=== PATIENT | male | born 1955 | race Caucasian/White ===

== ENCOUNTER 2019-07-21 09:54 | Inpatient (IN) | payer MEDICARE, MEDICAID, SELFPAY ==
[2019-07-21] VITALS (17 sets, daily range): BP systolic 93–112; BP diastolic 55–78; PULSE 95–125; RESP 16–35; TEMP 36.1–36.4; O2SAT 92–100; BMI 29.9
--- NOTE | ~2019-07-21 | CT_ITS ---
EXAMINATION: CTA chest PE protocol EXAM DATE: 07/21/2019 12:18 INDICATION: Shortness of breath. TECHNIQUE: Spiral CTA of the chest (pulmonary arteries) was performed with 100 cc Omnipaque 350 intr avenous contrast injection. Images were acquired during the pulmonary arterial phase. Coronal maxi mum intensity projection 3D-reconstructions were created by the technologist on dedicated workstation . Axial, coronal and sagittal reformatted images were reviewed. The dose-length product (DLP) for t his examination was 910.48 mGy-cm. The exposure was tailored according to patient size (auto mA exp osure control), and iterative reconstruction (ASIR) was used as additional dose reduction technique. Comparison is made to prior examination from 05/28/2019. FINDINGS: No pulmonary emboli. No thoracic aortic dissection. There is moderate to large right-kaushal ed, and moderate left-sided pleural effusion. There is adjacent multisegmental atelectasis in both lo wer lobes. There is additional left-sided airspace disease consistent with pneumonia or edema. Tra cheobronchial tree is patent. There is no mediastinal, hilar or axillary lymphadenopathy. There i s no pneumothorax. Cardiomegaly coronary artery calcifications and/or stents. Splenic and liver g ranulomas. Left renal hemorrhagic cyst incompletely imaged. There is advanced thoracic spondylosis w ithout osteoblastic or osteolytic lesions identified. IMPRESSION: 1. No pulmonary emboli. 2. Moderate to large right pleural effusion, could consider therapeutic thoracentesis. 3. Moderate left pleural effusion. 4. Patchy left-sided pneumonia or edema. 5. Bibasilar multisegmental atelectasis. 6. Cardiomegaly. Reviewed, dictated and finalized at location A. AGENT IMPRESSION: 1. No pulmonary emboli. 2. Moderate to large right pleural effusion, could consider therapeutic thorac entesis. 3. Moderate left pleural effusion. 4. Patchy left-sided pneumonia or edema. 5. Bibasilar multisegmental atelectasis. 6. Cardiomegaly.
--- NOTE | ~2019-07-21 | XR_ITS ---
EXAMINATION: XR abdomen obstructive series EXAM DATE: 08/03/2019 18:24 INDICATION: Abdominal distention, ileus. TECHNIQUE: Frontal upright projection of the upper abdomen, frontal projection of the lower abdomen f or interpretation. Comparison is made to prior examination from 06/02/2019. FINDINGS: Again there is severe gaseous distention of the colon, could be colonic ileus correlating with prior studies, although there is also moderate amount of stool within the rectal vault, fecal im paction could be contributing. Large lumbar bridging lumbar endplate osteophytes. Right hip replaceme nt. There are small bilateral pleural effusions. There is possible left lower lobe consolidation, cou ld be atelectasis. No evidence of free intraperitoneal gas. IMPRESSION: 1. Moderate rectal vault stool with large amount of colonic gaseous distention proximally. Fecal imp action and/or colonic ileus. 2. Small pleural effusions. 3. Probable retrocardiac atelectasis or possibly consolidation. Reviewed, dictated and finalized at location A. TER AIRBRUSH IMPRESSION: 1. Moderate rectal vault stool with large amount of colonic gaseous distention proximally. Fecal impaction and/or colonic ileus. 2. Small pleural effusions. 3. Probable retrocardiac atelectasis or possibly consolidation.
--- NOTE | ~2019-07-21 | XR_ITS ---
EXAMINATION: XR chest 2V DATE: 07/28/2019 15:59 INDICATION: Congestive heart failure, pneumonia TECHNIQUE: AP and lateral views of the chest are obtained. COMPARISON: 07/26/2019 FINDINGS: There is stable cardiomegaly. Moderate-sized pleural effusions are unchanged. There are sta ble airspace opacities of the mid and lower lung zones. No pneumothorax is identified. Calcified righ t hilar lymph nodes are consistent with old granulomatous disease. IMPRESSION: 1. Stable airspace opacities of the mid and lower lung zones, consistent with atelectasis versus pneu monia. 2. Stable cardiomegaly. 3. Moderate-sized pleural effusions, stable. Reviewed, dictated and finalized at location A. E HARDENER IMPRESSION: 1. Stable airspace opacities of the mid and lower lung zones, consistent with a telectasis versus pneumonia. 2. Stable cardiomegaly. 3. Moderate-sized pleural effusions, stable.
--- NOTE | ~2019-07-21 | US_ITS ---
EXAMINATION: US venous doppler [facility] DATE: 07/22/2019 14:18 INDICATION: Lower limb edema. TECHNIQUE: Grayscale ultrasound images without and with compression and Doppler ultrasound images of the bilateral lower extremity veins were obtained. COMPARISON: Ultrasound 05/30/2019 FINDINGS: The visualized portions of right common femoral vein, profunda (deep) femoral vein, femoral vein, pop liteal vein, peroneal veins, posterior tibial veins, and greater saphenous vein outflow are patent. The visualized portions of left common femoral vein, profunda femoral vein, femoral vein, popliteal v ein, peroneal veins, posterior tibial veins, and greater saphenous vein outflow are patent. IMPRESSION: 1. No deep venous thrombosis. Reviewed, dictated and finalized at location A. WAGON DRIVER
--- NOTE | ~2019-07-21 | US_ITS ---
EXAMINATION: US thoracentesis DATE: 07/26/2019 15:10 INDICATION: pleural effusion TECHNIQUE: The procedure and its risks, benefits, and alternatives were discussed with the patient. P otential risks discussed included bleeding, infection, and pneumothorax. The patient understood the r isks and agreed to proceed. The skin was prepped and draped in sterile fashion. 1% lidocaine was used for local anesthesia. Under ultrasound guidance, a 5 Fr catheter with trochar was advanced into the right pleural effusion. Fluid was aspirated. The catheter was removed, and a dressing was applied. Th ere were no immediate complications. FINDINGS: Ultrasound images demonstrate a right pleural effusion and the catheter within the fluid. IMPRESSION: 1. Successful ultrasound-guided thoracentesis yielding 1000 mL of clear, yellow fluid. Reviewed, dictated and finalized at location A. SPRING RELAY ADJUSTER IMPRESSION: 1. Successful ultrasound-guided thoracentesis yielding 1000 mL of clear, yello w fluid.
--- NOTE | ~2019-07-21 | XR_ITS ---
EXAMINATION: XR chest 2V DATE: 07/26/2019 14:59 INDICATION: Right pleural effusion. TECHNIQUE: Frontal and lateral views of the chest were obtained. COMPARISON: Chest 2 views 07/21/2019, chest CT 07/21/2019 FINDINGS: There are moderate-sized pleural effusions. There are airspace opacities in the mid and low er lung zones with a basilar predominance. No pneumothorax. Calcified right hilar lymph nodes are con sistent with old granulomatous disease. Cardiomegaly is noted. There is mild chronic anterior wedging of multiple vertebral bodies. IMPRESSION: 1. Stable moderate-sized pleural effusions. 2. Stable airspace opacities in the mid and lower lung zones with a basilar predominance, consistent with atelectasis versus pneumonia. 3. Cardiomegaly. Reviewed, dictated and finalized at location A. E EVIDENCE TECHNICIAN IMPRESSION: 1. Stable moderate-sized pleural effusions. 2. Stable airspace opacities in the mid and lower lung zones with a basilar pre dominance, consistent with atelectasis versus pneumonia. 3. Cardiomegaly.
--- NOTE | ~2019-07-21 | XR_ITS ---
EXAMINATION: XR chest 2V EXAM DATE: 07/21/2019 10:52 INDICATION: Shortness of breath. TECHNIQUE: Frontal and lateral projections of the chest obtained and reviewed. Comparison is made to prior examination from 05/29/2019. FINDINGS: Small to moderate bilateral layering pleural effusions with adjacent atelectasis. There is cardiomegaly and indistinct basilar reticulation probably pulmonary edema. Pneumonia not excludable. There is no pneumothorax suspected. There are mild bony degenerative changes. IMPRESSION: Findings consistent with moderate CHF exacerbation. Pneumonia not excludable. Reviewed, dictated and finalized at location A. N SORTER IMPRESSION: Findings consistent with moderate CHF exacerbation. Pneumonia not e xcludable.
--- NOTE | 2019-07-21 10:02 | ECG_ITS ---
Measurements Intervals [place] Rate: 94 P: 70 MT: 143 QRS: -57 QRSD: 120 T: 91 QT: 344 QTc: 432 Interpretive Statements SINUS OR ECTOPIC ATRIAL RHYTHM LEFT AXIS DEVIATION INTRAVENTRICULAR CONDUCTION DELAY CANNOT RULE OUT SEPTAL INFARCT, AGE INDETERMINATE INFERIOR INFARCT, AGE INDETERMINATE BORDERLINE ST-T WAVE ABNORMALITY- LATERAL LEADS BASELINE ARTIFACT- I, II, III, AVR, AVL, AVF, V1-V2 ABNORMAL ECG Electronically Signed On 07-21-2019 12:36:47 SAMPLE PATTERNMAKER by Soren Farr D.O.
--- NOTE | 2019-07-21 10:08 | ED.SOB ---
HPI - SOB/Dyspnea General Chief Complaint: Shortness of Breath/Dyspnea Stated Complaint: RESP DISTRESS Time Seen by Provider: 07/21/19 10:02 Source: patient and RN notes reviewed Mode of arrival: EMS Limitations: no limitations History of Present Illness HPI Narrative: Pt is a 63 y/o male who presents to the ED, via EMS from [facility], with c/o moderate to severe SOB that began one hour ago. Pt has a hx of COPD. Pt notes that his dyspnea has improved slightly. Pt also reports a slight cough, but denies a fever and CP. MD elicited complaint: shortness of breath Pertinent past history: COPD Onset (ago): hour(s) (1) Timing: improved Known history of: COPD Associated symptoms: cough (slight) Related Data Home Medications Medication Instructions Recorded Confirmed Lasix 40 mg PO DAILY 05/24/19 05/24/19 Lipitor 40 mg PO HS 05/24/19 05/24/19 aspirin 81 mg PO DAILY 05/24/19 05/24/19 clopidogrel [Plavix] 75 mg PO DAILY 05/24/19 05/24/19 levothyroxine [Synthroid] 25 mcg PO DAILY 05/24/19 05/24/19 magnesium 400 mg PO DAILY 05/24/19 05/24/19 metformin 1,000 mg PO BID 05/24/19 05/24/19 nortriptyline 25 mg PO BID 05/24/19 05/24/19 potassium chloride 20 meq PO BID 05/24/19 05/24/19 spironolactone 25 mg PO DAILY 05/24/19 05/24/19 Allergies Allergy/AdvReac Type Severity Reaction Status Date / Time amitriptyline Allergy Unknown Unknown Verified 05/24/19 14:09 diazepam Allergy Unknown Unknown Verified 05/24/19 14:09 nortriptyline Allergy Unknown Verified 05/24/19 14:09 pregabalin Allergy Unknown Verified 05/24/19 14:09 Review of Systems Review of Systems: All systems reviewed & are unremarkable except as noted in HPI and below Constitutional: Constitutional: Denies fever(s) Cardiovascular: Cardiovascular: Denies chest pain Respiratory: Respiratory: Reports cough (slight) and Reports dyspnea PMFSH Past Medical History Medical History (Updated 07/21/19 @ 13:33 by Abiola Galan MD) Anxiety Asthma CAD (coronary artery disease) Multiple cardiac stents CHF (congestive heart failure) EF of 30-35% Chronic back pain COPD (chronic obstructive pulmonary disease) Depression Diabetes Edema of both lower extremities GERD (gastroesophageal reflux disease) Hypothyroid Myocardial infarction On home oxygen therapy Pneumonia Sepsis Type II diabetes mellitus Surgical History Surgical History (Updated 05/24/19 @ 21:23 by Jessica Lees NP) History of cardiac catheterization History of tracheostomy Status post insertion of percutaneous endoscopic gastrostomy (PEG) tube No longer has Stented coronary artery Family History Family History (Updated 05/24/19 @ 21:25 by Jessica Lees NP) Mother Kidney failure Heart failure Diabetes mellitus Father Heart failure Sibling Lung cancer Social History Social History (Updated 05/24/19 @ 21:26 by Jessica Lees NP) Social History: He resides at [facility]. His brother Harpal is his durable power employment law attorney. He is listed as a full code. He quit smoking back about 10 years ago. He smoked for about 35 years. He has 1 biological child but was adopted to another family. He was never but had a significant other. He is disabled Smoking status: Former smoker Alcohol intake: former Substance use type: does not use Gender identity (if verbalized by the patient): Male Spiritual care concerns: No Agree to blood products: Yes Exam Const: General: no acute distress and well developed Orientation/consciousness: oriented to person, oriented to place, oriented to time and patient oriented x3 HENMT: Head: normocephalic Ears: external ears normal General nose exam: Normal external nose present Eyes: General: appearance normal, both eyes and all related structures Conjunctivae: conjunctivae normal Neck: Neck: normal visual inspection and full ROM Chest: Chest palpation & inspection: normal inspection of th
[2019-07-21 10:16] LABS: Alveolar/Arterial O2 Gradient 49.1 mmHg; Base Excess ABG 2.4 mEq/l (+/-2.0); Fractional Inspired Oxygen 21 %; HCO3 ABG 26.1 mEq/l (22.0-26.0); Oxygen Content ABG 14.5 %vol (16.0-22.0); Oxygen Saturation ABG 90.8 % (95.0-100.0); Oxyhemoglobin 88.7 % THb (90.0-100.0); PCO2 ABG 37.4 mmHg (35.0-45.0); PO2 ABG 55.8 mmHg (80.0-100.0); PO2 FiO2 Ratio Arterial Blood 2.66 %; Total Hemoglobin 11.6 g/dL (12.0-18.0); pH ABG 7.462 (7.350-7.450)
[2019-07-21 10:18] LABS: Device ROOM AIR; Site Drawn RIGHT BRACHIAL
[2019-07-21] MEDS: IPRATROPIUM BR 0.02% INH SOLN 0.5 MG/2.5 ML VIAL INHALATION (10:20)
[2019-07-21] MEDS: ALBUTEROL SULFATE NEB 2.5 MG/0.5 ML INH INHALATION (10:20)
[2019-07-21 10:27] LABS: Basophils Absolute Auto 0.2 K/mm3 (0.0-0.1); Basophils Percent Auto 0.7 % (0.2-1.2); Hematocrit 35.3 % (42.0-52.0); Immature Granulocyte Absolute 0.11 K/mm3 (0.00-0.031); Immature Granulocyte Percent A 0.5 % (0-0.5); Lymphocytes Absolute Auto 4.66 K/mm3 (0.9-3.2); Lymphocytes Percent Auto 21.7 % (18.3-44.2); Mean Corpuscular HGB Conc 31.2 g/dl (32-36); Mean Corpuscular Volume 99.4 fl (80-100); Mean Platelet Volume 9.6 fl (7.4-10.4); Monocytes Percent Auto 4.7 % (2.6-8.5); Neutrophils Absolute Auto 15.6 K/mm3 (1.3-6.7); Neutrophils Percent Auto 72.4 % (45.5-73.1); Platelet Count Result 449 k/mm3 (150-375); Red Blood Count 3.55 M/mm3 (4.6-6.20); Red Cell Distribution Width 16.1 % (11.5-14.5); White Blood Count 21.5 K/mm3 (4.5-10.0)
[2019-07-21] MEDS: methylPREDNISolone SOD SUCC 125 MG VIAL IV PUSH (10:29)
[2019-07-21] MEDS: FUROSEMIDE INJ 40 MG/4 ML VIAL IV PUSH (10:29)
[2019-07-21 10:40] LABS: D Dimer 1.09 ug/mL (<0.48)
[2019-07-21 11:26] LABS: Alanine Aminotransferase 20 U/L (4-50); Albumin Level 2.7 g/dL (3.5-5.1); Alkaline Phosphatase 127 U/L (38-126); Aspartate Amino Transferase 27 U/L (17-59); Bilirubin,Total 0.6 mg/dL (0.2-1.3); Blood Urea Nitrogen 15 mg/dL (9-20); Calcium 8.2 mg/dL (8.4-10.2); Carbon Dioxide 30 mmol/L (22-30); Chloride 97 mmol/L (98-107); Estimated CRCL calculation 128 ml/min; Estimated Glomerular Filt Rate > 60; Glucose 119 mg/dL (75-110); Potassium 4.5 mmol/L (3.4-5.0); Sodium 136 mmol/L (137-145)
[2019-07-21 11:35] LABS: NT Pro B Type Natriuretic Pept 22100 PG/ML (5-100)
[2019-07-21 12:22] LABS: Lactic Acid Reflex 3.9 mmol/L (0.7-2.1)
[2019-07-21 14:16] LABS: Troponin I 0.082 ng/mL (0.000-0.034)
[2019-07-21 15:07] LABS: Reflex Lactic Acid Yes or No Add Lactic
[2019-07-21 15:44] LABS: Lactic Acid 2.9 mmol/L (0.7-2.1)
--- NOTE | 2019-07-21 16:11 | PC.NURSE ---
This patient, Ananth Claros, was admitted to IMU Room 231-01. Patient/family oriented to hospital policies and general routines including ID bracelet, bed and alarms, visiting hours, pain management, procedures, bathroom and other care routines, personal items, smoking policy, room service/diet, and visiting hours. Valuables list has been completed. Information on how to activate the Rapid Response Team has been discussed. Patient/Family are encouraged to report perceived risks to care and to ask questions if they do not understand what they are told or what they should do.
[2019-07-21 17:40] LABS: Troponin I 0.085 ng/mL (0.000-0.034)
--- NOTE | 2019-07-21 20:00 | PM.IMHP ---
H&P: HPI History of Present Illness Chief complaint: Shortness of breath. Narrative: Ananth Claros is a 63-year-old with multiple medical problems including coronary artery disease, ischemic cardiomyopathy with a recent ejection fraction of 35 to 45%, hypertension, dyslipidemia, COPD, diabetes, and several other comorbidities who presented to the emergency department earlier this morning via EMS from [facility] for evaluation of shortness of breath. He is chronically debilitated and has been hospitalized several times in the last 6 months. In December 2018 he was admitted to the intensive care unit here at [facility] with severe sepsis and septic shock due to pneumonia, complicated by acute kidney injury. He was unable to be weaned from the ventilator, and he underwent tracheostomy and PEG placement before being discharged to an LTAC. He was hospitalized at [facility] in [place] for CHF exacerbation thereafter, and was admitted here again around 2018 with hypotension thought to be secondary to GI blood loss as he had recently been started on Eliquis for bilateral DVTs. He has been in [facility] since that time. He is essentially bed-bound and requires a lot of care at the halfway. He is able to feed himself but is so weak and is unable to even set himself up in bed without help. He is easily short of breath, even when attempting to sit himself up. About an hour prior to arrival to the emergency department, he developed sudden onset of severe shortness of breath and given his distress, he was started on a CPAP on EMS arrival. At the time my evaluation, he is on room air with oxygen saturations in the mid to upper 90s and reports feeling much better. With further questioning, he does note ever increasing lower extremity edema to the flanks. He has also had a orthopnea. He is not following a low-sodium diet, and admits that he eats hot dogs and chips every day for both lunch and dinner. He denies fever, chills, sweats, productive cough, nausea, vomiting, and diarrhea. Review of Systems Review of Systems: Narrative: Twelve systems are reviewed with pertinent positives and negatives as per HPI. He lost about 40 kilogram since his hospitalization December 2018, but has gained about 10 pounds back in the last couple of weeks in water weight. He denies dysphagia and concerns for aspiration. He tells me that he has a hard time chewing, however. Since his long hospitalization last fall, food just does not smell or taste did good to him, except for salty items such as hot dogs and chips as above. Except as documented, all other systems were reviewed and are negative [facility] Past Medical History Medical History (Updated 07/21/19 @ 21:57 by Madai Cobos PA-C) Anxiety Asthma CAD (coronary artery disease) Multiple cardiac stents Chronic anemia Chronic back pain Congestive heart failure Ejection fraction is low is 30 to 35% in the past. COPD (chronic obstructive pulmonary disease) Depression DVT, bilateral lower limbs Dyslipidemia GERD (gastroesophageal reflux disease) Hypothyroid Ischemic cardiomyopathy Most recent ejection fraction was 35 to 40%. Myocardial infarction On home oxygen therapy Renal mass Type II diabetes mellitus Hemoglobin A1c was 6.8% in December 2018. Surgical History Surgical History (Updated 07/21/19 @ 20:11 by Madai Cobos PA-C) History of cardiac catheterization History of tracheostomy January 2009 after lengthy hospitalization for severe sepsis with septic shock and pneumonia. Status post insertion of percutaneous endoscopic gastrostomy (PEG) tube Subsequently removed. Stented coronary artery Family History Family History Mother Kidney failure Heart failure Diabetes mellitus Father Heart failure Sibling Lung cancer Social History Social History (Updated 07/21/19 @ 20:12 by Madai Shetty
[2019-07-21 20:42] LABS: Glucose Point of Care 170 (65-105)
[2019-07-21] MEDS: ATORVASTATIN 40 MG TABLET PO (23:14)
[2019-07-21] MEDS: METOPROLOL SUCCINATE EXT REL 25 MG TABCR PO (23:14)
[2019-07-22] VITALS (29 sets, daily range): BP systolic 79–125; BP diastolic 53–64; PULSE 94–114; RESP 16–28; TEMP 36.4–37.1; O2SAT 94–100
[2019-07-22 02:34] LABS: Free T4 Free Thyroxine Reflex 1.41 ng/dL (0.78-2.19)
[2019-07-22] MEDS: IPRATROPIUM BR 0.02% INH SOLN 0.5 MG/2.5 ML VIAL INHALATION ×4 (02:55→21:16)
[2019-07-22 03:38] LABS: Total Triiodothyronine (T3) 0.85 NG/ML (0.97-1.69)
--- NOTE | 2019-07-22 04:23 | PCRCNOTE ---
[facility]
[2019-07-22 05:32] LABS: Basophils Percent Auto 0.2 % (0.2-1.2); Hematocrit 30.1 % (42.0-52.0); Hemoglobin 9.4 g/dL (14.0-18.0); Immature Granulocyte Absolute 0.08 K/mm3 (0.00-0.031); Immature Granulocyte Percent A 0.5 % (0-0.5); Lymphocytes Absolute Auto 4.37 K/mm3 (0.9-3.2); Lymphocytes Percent Auto 25.9 % (18.3-44.2); Mean Corpuscular HGB Conc 31.2 g/dl (32-36); Mean Corpuscular Hemoglobin 30.6 pg (26-34); Mean Platelet Volume 9.8 fl (7.4-10.4); Monocytes Percent Auto 5.9 % (2.6-8.5); Neutrophils Absolute Auto 11.4 K/mm3 (1.3-6.7); Neutrophils Percent Auto 67.5 % (45.5-73.1); Nucleated Red Blood Cells Perc 0.1 % (0.0-0.2); Platelet Count Result 384 k/mm3 (150-375); Red Blood Count 3.07 M/mm3 (4.6-6.20); Red Cell Distribution Width 16.1 % (11.5-14.5); White Blood Count 16.9 K/mm3 (4.5-10.0)
[2019-07-22 05:45] LABS: Alanine Aminotransferase 17 U/L (4-50); Albumin Level 2.4 g/dL (3.5-5.1); Alkaline Phosphatase 92 U/L (38-126); Aspartate Amino Transferase 20 U/L (17-59); Bilirubin,Total 0.4 mg/dL (0.2-1.3); Blood Urea Nitrogen 20 mg/dL (9-20); Calcium 7.8 mg/dL (8.4-10.2); Carbon Dioxide 27 mmol/L (22-30); Chloride 97 mmol/L (98-107); Estimated CRCL calculation 110 ml/min; Estimated Glomerular Filt Rate > 60; Glucose 146 mg/dL (75-110); Potassium 4.3 mmol/L (3.4-5.0); Sodium 133 mmol/L (137-145)
[2019-07-22] MEDS: LEVOTHYROXINE SODIUM 50 MCG TABLET PO (05:48)
[2019-07-22] MEDS: METOCLOPRAMIDE HCL 10 MG TABLET PO ×3 (05:48→19:15)
[2019-07-22] MEDS: ACETAMINOPHEN 325 MG TABLET 650 MG PO (05:48)
[2019-07-22 08:12] LABS: Glucose Point of Care 126 (65-105)
[2019-07-22] MEDS: BUDESONIDE RESPULE NEB 0.5 MG/2 ML AMP INHALATION ×2 (08:22→21:16)
[2019-07-22] MEDS: POLYSACCHARIDE IRON COMPLEX 150 MG CAPSULE PO (08:49)
[2019-07-22] MEDS: FUROSEMIDE INJ 40 MG/4 ML VIAL 20 MG IV PUSH (08:49)
[2019-07-22] MEDS: POTASSIUM CHLORIDE 20 MEQ PACKET (FOR LIQUID) PO (08:49)
[2019-07-22] MEDS: PANTOPRAZOLE 40 MG TABLET PO (08:50)
[2019-07-22] MEDS: SPIRONOLACTONE 25 MG TABLET PO (08:50)
[2019-07-22] MEDS: MAGNESIUM OXIDE 400 MG TABLET PO (08:50)
[2019-07-22 10:41] LABS: Lactate Dehydrogenase 378 U/L (313-618)
[2019-07-22 10:43] LABS: INR 1.2; Prothrombin Time 15.3 Seconds (11.1-14.7)
[2019-07-22 10:44] LABS: Partial Thromboplastin Time 33.7 SECONDS (22.3-36.8)
[2019-07-22 12:15] LABS: Glucose Point of Care 114 (65-105)
--- NOTE | 2019-07-22 13:50 | PM.CNCAR ---
Assessment and Plan Additional Plan This is an unfortunate chronically ill-appearing 63-year-old man with longstanding chronic ischemic heart disease, previous interventions but nothing recent who enters the hospital yet again with shortness of breath the picture of systolic left ventricular heart failure. His current regimen consists of dual anti-platelet therapy, low-dose metoprolol and spironolactone. Since he has not had a significant recent coronary intervention and he is anemic I am going to stop his clopidogrel Since he has recurrent episodes of heart failure numerous times in the last 6-8 months I am going to attempt low-dose Entresto in hopes of favorably affecting his hemodynamics hopefully he will tolerate a tiny dose without becoming problematically hypotensive. After he is off of clopidogrel it would be reasonable to consider tapping his pleural effusions if the rate interventional radiologist thinks that that can be done this might improve mechanics of breathing History of Present Illness History of Present Illness Consult date/time: Date of service: 07/22/19 13:50 Consult reason: congestive heart failure Reason For Visit: Shortness of breath. Narrative: This is a 63-year-old patient I am seeing this afternoon at the request with the hospitalist for assistance with the treatment of congestive heart failure. 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 That is someone at [facility] in [place]. In any event the patient has been chronically ill and in poor condition for most of the past year and has been hospitalized at a variety of institutions a both here at [facility], couple other hospitals in [place] and also at [facility] in [place]. The patient has a history of coronary artery disease with moderately depressed left ventricular systolic function and previous coronary interventional procedures that have been done by his established crusher dry ground mica. II never have seen any records to establish the details of those interventional procedures but he has not had any ischemic problems or interventions in he believes a number of years. The patient was seen by our practice last year when he was hospitalized here with on the picture of sepsis he was intubated on ventilator support as he improved gradually standard medical therapy for his ischemic cardiomyopathy was reinstituted and he was actually discharged to long-term ventilator care facility. Fortunately he was eventually extubated and I his tracheostomy was taken out he has been living in a correction facility since then. It looks acute was hospitalized here at [facility] last month in June with some shortness of breath he was managed by the hospitalist service, we were not consulted to see him at that time. The patient is moderately anemic as well and also carries the diagnosis of some degree of chronic lung disease with previous smoking which has was discontinued a long time ago. He was very short of breath at the correction they transferred and [facility] last evening where he was readmitted again his chest x-ray demonstrates some bilateral basilar congestion and bilateral pleural effusions they do not look like they are awful lot larger than they were last month when he was here. Interventional Radiology was consulted to consider tapping these which is going to be delayed because of anti-platelet therapy. The patient's current medical regimen consisted of aspirin, clopidogrel, low-dose metoprolol and spironolactone. In the past we had made attempts to place him on an SAVAGE-inhibitor when he was here in June his blood pressure was soft and so SAVAGE-inhibitor therapy was not included in his regimen upon discharge. He is not reporting any chest pain pressure heaviness he does notice increasing weight and significantly increasing lower extremity edema ov
--- NOTE | 2019-07-22 17:05 | PC.NURSE ---
This patient, Ananth Claros, was transferred to ICU 11 on 07/22/19 at 1705. Personal belongings sent with patient. Belongings list checked and signed with receiving RN. Report given to REBEKAH Reynolds. Appropriate documentation sent with patient.
[2019-07-22 17:08] LABS: Alveolar/Arterial O2 Gradient 44.8 mmHg; Base Excess ABG 3.1 mEq/l (+/-2.0); Carboxyhemoglobin 0.3 % THb (0-2.0); Fractional Inspired Oxygen 24 %; HCO3 ABG 25.8 mEq/l (22.0-26.0); Methemoglobin ABG 0.2 %THb (0-1.5); Oxygen Content ABG 14.1 %vol (16.0-22.0); Oxygen Saturation ABG 97.5 % (95.0-100.0); Oxyhemoglobin 95.6 % THb (90.0-100.0); PCO2 ABG 32.6 mmHg (35.0-45.0); PO2 ABG 87.5 mmHg (80.0-100.0); PO2 FiO2 Ratio Arterial Blood 3.65 %; Reduced Hemoglobin 3.9 %THb (0-5.0); Total Hemoglobin 10.4 g/dL (12.0-18.0)
[2019-07-22 17:10] LABS: Device NASAL CANNULA; Site Drawn LEFT BRACHIAL; pH ABG 7.516 (7.350-7.450)
[2019-07-22 17:35] LABS: Glucose Point of Care 194 (65-105)
--- NOTE | 2019-07-22 17:58 | PM.IMPN ---
Progress Note: A&P Assessment and Plan (1) Acute on chronic diastolic CHF (congestive heart failure): Code(s): I50.33 - Acute on chronic diastolic (congestive) heart failure <Lexi Adam PA-C - Last Filed: 07/22/19 18:17> Status: Acute <Lexipriscila Adam PA-C - Last Filed: 07/22/19 18:17> Assessment and Plan: -----patient has significant cardiac disease with an EF 35-45% appears volume overloaded. This includes lower extremity edema as well as pleural effusions. We will continue Lasix b.i.d. as his blood pressure allows. We will give albumin for 24 hours to try to help facilitate a normal blood pressure. I have called Cardiology and did review their notes. The patient is looking better than he did earlier but is still at a guarded prognosis. I spoke with the patient, brother, Madai LEVY, Dr. Garrett, and Dr. Arango about plan of care. Patient would like to try BiPAP if needed but if that did not work would moved to intubation. He is okay with pressors as well. At this time I do not think this is necessary as he is doing better but we will monitor him closely. -patient unable to get a thoracentesis for 5 days since he has taken Plavix. <Lexi Adam PA-C - Last Filed: 07/22/19 18:17> (2) Elevated troponin: Code(s): R79.89 - Other specified abnormal findings of blood chemistry <Lexi Adam PA-C - Last Filed: 07/22/19 18:17> Status: Acute <Lexi Adam PA-C - Last Filed: 07/22/19 18:17> Assessment and Plan: -----no chest pain at this time. Likely due to severe CHF exacerbation. Cardiology on board. See above. <Lexi Adam PA-C - Last Filed: 07/22/19 18:17> (3) Sepsis: Code(s): A41.9 - Sepsis, unspecified organism <Lexi Adam PA-C - Last Filed: 07/22/19 18:17> Status: Acute <Lexi Adam PA-C - Last Filed: 07/22/19 18:17> Assessment and Plan: -----meet sepsis criteria with tachycardia, leukocytosis, and elevated lactic acid level in the setting of possible pneumonia. He is also might be changes from his CHF. I have new lactic acid and other labs running at this time. Will continue IV antibiotics for now. Blood cultures pending <Lexi Adam PA-C - Last Filed: 07/22/19 18:17> (4) Pneumonia: Qualifiers: Laterality: unspecified laterality Lung location: unspecified part of lung Pneumonia type: due to unspecified organism Qualified Code(s): J18.9 - Pneumonia, unspecified organism <Lexi Adam PA-C - Last Filed: 07/22/19 18:17> Code(s): J18.9 - Pneumonia, unspecified organism <Lexi Adam PA-C - Last Filed: 07/22/19 18:17> Status: Acute <Lexi Adam PA-C - Last Filed: 07/22/19 18:17> Assessment and Plan: -----Patchy left-sided pneumonia or edema noted on chest CT. Continue azithromycin and ceftriaxone. <Lexi Adam PA-C - Last Filed: 07/22/19 18:17> (5) Pleural effusion: Code(s): J90 - Pleural effusion, not elsewhere classified <Lexi Adam PA-C - Last Filed: 07/22/19 18:17> Status: Acute <Lexi Adam PA-C - Last Filed: 07/22/19 18:17> Assessment and Plan: -----see above. Hopefully diuretics will improve this. Unable to do a thoracentesis x5 days because of his Plavix according to IR <Lexi Adam PA-C - Last Filed: 07/22/19 18:17> (6) Hypothyroid: Code(s): E03.9 - Hypothyroidism, unspecified <Lexi Adam PA-C - Last Filed: 07/22/19 18:17> Status: Chronic <Lexi Adam PA-C - Last Filed: 07/22/19 18:17> Assessment and Plan: -----TSH slightly elevated with a normal T4. Continue current dose of levothyroxine. Likely due to acute illness. <Lexi Adam PA-C - Last Filed: 07/22/19 18:17> (7) Type II diabetes mellitus: Code(s): E11.9 - Type 2 diabetes me
[2019-07-22 18:19] LABS: Basophils Absolute Auto 0.1 K/mm3 (0.0-0.1); Basophils Percent Auto 0.3 % (0.2-1.2); Hematocrit 30.4 % (42.0-52.0); Hemoglobin 9.8 g/dL (14.0-18.0); Immature Granulocyte Absolute 0.09 K/mm3 (0.00-0.031); Immature Granulocyte Percent A 0.6 % (0-0.5); Lymphocytes Absolute Auto 3.67 K/mm3 (0.9-3.2); Lymphocytes Percent Auto 23.4 % (18.3-44.2); Mean Corpuscular HGB Conc 32.2 g/dl (32-36); Mean Corpuscular Hemoglobin 31.5 pg (26-34); Mean Corpuscular Volume 97.7 fl (80-100); Mean Platelet Volume 9.3 fl (7.4-10.4); Monocytes Absolute Auto 1.2 K/mm3 (0.1-0.6); Monocytes Percent Auto 7.3 % (2.6-8.5); Neutrophils Absolute Auto 10.7 K/mm3 (1.3-6.7); Neutrophils Percent Auto 68.4 % (45.5-73.1); Platelet Count Result 326 k/mm3 (150-375); Red Blood Count 3.11 M/mm3 (4.6-6.20); Red Cell Distribution Width 16.1 % (11.5-14.5); White Blood Count 15.7 K/mm3 (4.5-10.0)
[2019-07-22 18:31] LABS: Alanine Aminotransferase 17 U/L (4-50); Albumin Level 2.4 g/dL (3.5-5.1); Alkaline Phosphatase 92 U/L (38-126); Aspartate Amino Transferase 22 U/L (17-59); Bilirubin,Total 0.4 mg/dL (0.2-1.3); Blood Urea Nitrogen 23 mg/dL (9-20); Calcium 7.8 mg/dL (8.4-10.2); Carbon Dioxide 25 mmol/L (22-30); Chloride 96 mmol/L (98-107); Estimated CRCL calculation 99 ml/min; Estimated Glomerular Filt Rate > 60; Glucose 140 mg/dL (75-110); Potassium 4.1 mmol/L (3.4-5.0); Sodium 132 mmol/L (137-145)
[2019-07-22 18:44] LABS: Troponin I 0.103 ng/mL (0.000-0.034)
--- NOTE | 2019-07-22 20:22 | PC.NURSE ---
1725 received from [facility] for c/o low blood pressure 70/40 diaphoretic and less responsive.
--- NOTE | 2019-07-22 20:23 | PC.NURSE ---
174 sitting up and states I feel so much better now. continued to carry on conversation without further symptoms.
--- NOTE | 2019-07-22 20:26 | PC.NURSE ---
1850 two assist to the side of bed in preparation for meal, tolerated well.
--- NOTE | 2019-07-22 20:27 | PC.NURSE ---
[address] Hallman inability to obtain lactic acid. Multiple attempts made at this time.
[2019-07-22 22:00] LABS: Glucose Point of Care 145 (65-105)
[2019-07-22] MEDS: ALBUMIN HUMAN 25% 25 GM/100 ML 100 ML IVPB (22:04)
[2019-07-23] VITALS (25 sets, daily range): BP systolic 88–118; BP diastolic 64–73; PULSE 78–122; RESP 18–29; TEMP 36.1–37.1; O2SAT 94–100
[2019-07-23] MEDS: IPRATROPIUM BR 0.02% INH SOLN 0.5 MG/2.5 ML VIAL INHALATION ×4 (01:59→20:35)
[2019-07-23 04:18] LABS: Basophils Percent Auto 0.3 % (0.2-1.2); Eosinophils Percent Auto 0.2 % (0-4.4); Hematocrit 28.5 % (42.0-52.0); Hemoglobin 8.9 g/dL (14.0-18.0); Immature Granulocyte Absolute 0.05 K/mm3 (0.00-0.031); Immature Granulocyte Percent A 0.4 % (0-0.5); Lymphocytes Absolute Auto 3.35 K/mm3 (0.9-3.2); Lymphocytes Percent Auto 27.8 % (18.3-44.2); Mean Corpuscular HGB Conc 31.2 g/dl (32-36); Mean Corpuscular Hemoglobin 30.8 pg (26-34); Mean Corpuscular Volume 98.6 fl (80-100); Mean Platelet Volume 9.4 fl (7.4-10.4); Neutrophils Absolute Auto 7.6 K/mm3 (1.3-6.7); Neutrophils Percent Auto 63.3 % (45.5-73.1); Platelet Count Result 324 k/mm3 (150-375); Red Blood Count 2.89 M/mm3 (4.6-6.20); Red Cell Distribution Width 15.9 % (11.5-14.5); White Blood Count 12.1 K/mm3 (4.5-10.0)
[2019-07-23 04:29] LABS: Lactic Acid 1.5 mmol/L (0.7-2.1)
[2019-07-23 04:30] LABS: Alanine Aminotransferase 15 U/L (4-50); Albumin Level 2.6 g/dL (3.5-5.1); Alkaline Phosphatase 89 U/L (38-126); Aspartate Amino Transferase 19 U/L (17-59); Bilirubin,Total 0.4 mg/dL (0.2-1.3); Blood Urea Nitrogen 23 mg/dL (9-20); Calcium 8.1 mg/dL (8.4-10.2); Carbon Dioxide 29 mmol/L (22-30); Chloride 95 mmol/L (98-107); Estimated CRCL calculation 99 ml/min; Estimated Glomerular Filt Rate > 60; Glucose 113 mg/dL (75-110); Magnesium 1.5 mg/dL (1.6-2.3); Phosphorus 4.7 mg/dL (2.5-4.5); Potassium 3.8 mmol/L (3.4-5.0); Sodium 134 mmol/L (137-145)
[2019-07-23] MEDS: ALBUMIN HUMAN 25% 25 GM/100 ML 100 ML IVPB ×2 (06:24→13:43)
[2019-07-23] MEDS: METOCLOPRAMIDE HCL 10 MG TABLET PO ×3 (06:25→16:59)
[2019-07-23] MEDS: LEVOTHYROXINE SODIUM 50 MCG TABLET PO (06:25)
[2019-07-23 08:59] LABS: Glucose Point of Care 100 (65-105)
[2019-07-23] MEDS: MAGNESIUM SULF 4 GM/WATER100ML 4 GM/100 ML BAG IVPB (08:59)
[2019-07-23] MEDS: POTASSIUM CHLORIDE 20 MEQ PACKET (FOR LIQUID) PO (09:07)
[2019-07-23] MEDS: POLYSACCHARIDE IRON COMPLEX 150 MG CAPSULE PO ×2 (09:07→16:59)
[2019-07-23] MEDS: MAGNESIUM OXIDE 400 MG TABLET PO (09:08)
[2019-07-23] MEDS: SPIRONOLACTONE 25 MG TABLET PO (09:08)
[2019-07-23] MEDS: FUROSEMIDE INJ 40 MG/4 ML VIAL 20 MG IV PUSH (09:08)
[2019-07-23] MEDS: PANTOPRAZOLE 40 MG TABLET PO (09:08)
[2019-07-23] MEDS: ASPIRIN 81 MG CHEWABLE TABLET PO (09:10)
[2019-07-23] MEDS: BUDESONIDE RESPULE NEB 0.5 MG/2 ML AMP INHALATION ×2 (09:48→20:35)
[2019-07-23 13:18] LABS: Glucose Point of Care 138 (65-105)
--- NOTE | 2019-07-23 13:28 | WPDCNINT ---
Assessment and Plan Assessment and plan (1) Pleural effusion: Code(s): J90 - Pleural effusion, not elsewhere classified Status: Acute Assessment and Plan: Chest CT yesterday showed edudocpt-it-cstud pleural effusion on the right side with moderate left-sided pleural effusion. Associated atelectasis was seen as well. There is patchy left-sided airspace disease seen. Pleural fluid would need to be drained. Thoracentesis cannot be performed because of him being on Plavix. It has been stopped now at the time of presentation. Thoracentesis can be attempted in 3 days time. Will send pleural fluid for all the analysis including chemistry, cytology and cultures. He may need thoracentesis on both side but will get thoracentesis on the right side 1st to improve his respiratory mechanics. Unfortunately the pleural effusion may come back and this has been explained to his brother. (2) Sepsis: Code(s): A41.9 - Sepsis, unspecified organism Status: Acute Assessment and Plan: Seems to have pneumonia is seen with an infiltrate on CT scan. He has associated tachycardia leukocytosis and lactic acid being elevated as well. Continue antibiotics with cefepime and vancomycin for now. Deescalate antibiotics with stopping vancomycin in the next 2-3 days time if cultures remain negative and MRSA screen come back negative as well. Wean oxygen if tolerated. (3) Elevated troponin: Code(s): R79.89 - Other specified abnormal findings of blood chemistry Status: Acute Assessment and Plan: No significant chest pain. Likely associated with congestive heart failure exacerbation. Cardiology on board. No active intervention planned at this time. (4) Acute on chronic diastolic CHF (congestive heart failure): Code(s): I50.33 - Acute on chronic diastolic (congestive) heart failure Status: Acute Assessment and Plan: Does have a combination of systolic and diastolic congestive heart failure and now seems to have fluid overload. Continue Lasix for diuresis. Strict intake of record. Daily weight. Continue to monitor renal parameters and electrolytes. He has been given 3 doses of albumin for low blood pressure. If blood pressure remained an issue or if there is any concern for low perfusion then dobutamine can be added to improve his blood pressure while he continued to be on diuretics. Cardiology evaluation recommendation appreciated. Wean oxygen if tolerated. BiPAP on p.r.n. basis for increased work of breathing and worsening oxygenation . It seems that patient and his brother wants him to remain full code despite of his very poor functional baseline. At some point, probably would need to bring in palliative care to talk to him as well as brother for goals of care discussion. May need to put in for his catheter Zaiz he is incontinent and we are already seeing some maceration of the buttocks. Doppler ultrasound has been found to be negative for DVT. (5) Pneumonia: Qualifiers: Laterality: unspecified laterality Lung location: unspecified part of lung Pneumonia type: due to unspecified organism Qualified Code(s): J18.9 - Pneumonia, unspecified organism Code(s): J18.9 - Pneumonia, unspecified organism Status: Acute Assessment and Plan: Continue as above. Continue antibiotics. Follow cultures. Send sputum culture if he is able to produce any. Pleural fluid analysis will be sent along with culture to rule out any infective component of the pleural space. (6) COPD (chronic obstructive pulmonary disease): Qualifiers: COPD type: unspecified COPD Qualified Code(s): J44.9 - Chronic obstructive pulmonary disease, unspecified Code(s): J44.9 - Chronic obstructive pulmonary disease, unspecified Status: Chronic Assessment and Plan: He does not seems to be in active exacerbation. Steroids are not indicated. Continue b
[2019-07-23 16:58] LABS: Glucose Point of Care 205 (65-105)
[2019-07-23] MEDS: INSULIN ASPART (*BKC) 100 UNITS/ML SUB-Q (16:59)
--- NOTE | 2019-07-23 19:01 | PM.IMPN ---
Progress Note: A&P Assessment and Plan (1) Acute on chronic diastolic CHF (congestive heart failure): Code(s): I50.33 - Acute on chronic diastolic (congestive) heart failure Status: Acute Assessment and Plan: EF 35-45%. Patient is extremely volume overloaded. Doppler negative for DVT. Currently on lasix 20mg IV Q12h. He did receive albumin for the low BP. Will advance Lasix to Q6hr. Continue with strict I/Os. (2) Elevated troponin: Code(s): R79.89 - Other specified abnormal findings of blood chemistry Status: Acute Assessment and Plan: Trop peak to 0.10. EKG showing borderline ST T wave changes in the lateral leads. Denies chest pain. Cardiology following. (3) Sepsis: Code(s): A41.9 - Sepsis, unspecified organism Status: Acute Assessment and Plan: Present on admission with tachycardia, leukocytosis, and elevated lactic acid level in the setting of possible pneumonia. Lactic normal today. Currently on broad spectrum abx. Blood cultures NGTD but MRSA nasal swab positive and Bactroban started. Continue the same. (4) Pneumonia: Qualifiers: Laterality: unspecified laterality Lung location: unspecified part of lung Pneumonia type: due to unspecified organism Qualified Code(s): J18.9 - Pneumonia, unspecified organism Code(s): J18.9 - Pneumonia, unspecified organism Status: Acute Assessment and Plan: CT scan showing patchy left-sided pneumonia or edema. Continue Cefepime and Vanco. Continue nebulizer treatments. . (5) Pleural effusion: Code(s): J90 - Pleural effusion, not elsewhere classified Status: Acute Assessment and Plan: CT scan showing moderate to large right and moderate left pleural effusions. Unable to do a thoracentesis x5 days because of his Plavix according to IR. (6) Hypothyroid: Code(s): E03.9 - Hypothyroidism, unspecified Status: Chronic Assessment and Plan: TSH slightly elevated at 6.6 with a normal T4. Continue current dose of levothyroxine. Likely due to acute illness. (7) Type II diabetes mellitus: Code(s): E11.9 - Type 2 diabetes mellitus without complications Status: Chronic Assessment and Plan: Glucose reviewed on 07/23/19. Glucose mostly well controlled. Continue Accu-Cheks with sliding scale coverage. Continue hypoglycemic protocol. Subjective Date/time seen: 07/23/19 19:01 Interval history: 63yo male here for CHF exacerbation and possibly pneumonia. Patient moved to the ICU yesterday due to HoTN. Once moved however, he had clinical improvement and felt better. He feels 'bed' this evening. He has just woken up from a nap. No issues today except for a prolonged run of NSVT. He denies dizziness, CP or palpitations. Exam Narrative: Exam Narrative: Gen - chronically ill appearing male in NARD lying semi-recumbent in bed HEENT - normocephalic, temporal wasting, dry mucous membranes Chest - distant BS in the flanks. A few rhonchi anteriorly. CV - tacycardic, regular. HR 107 on the monitor. Tele showing a 20sec run of NSVT Abd - firm but not tense, +BS - Hunt secured draining clear yellow urine Ext - severe pitting edema in all extremities. Neuro - weak voice. paucity of movement. diffusely weak SKin - cool and dry Objective Data Vital Signs Vital Signs: Vital Signs - 24 hr 07/22/19 20:00 07/22/19 21:01 07/22/19 21:17 Temperature Pulse Rate 114 H 97 106 H Respiratory Rate 23 H Blood Pressure Pulse Oximetry 07/22/19 21:27 07/22/19 23:16 07/22/19 23:20 Temperature 98.7 F Pulse Rate 110 H 103 H 94 Respiratory Rate 28 H 20 22 H Blood Pressure 91/64 L Pulse Oximetry 98 94 07/22/19 23:56 07/23/19 00:00 07/23/19 01:59 Temperature 98 F Pulse Rate 105 H 102 H 103 H Respiratory Rate 20 21 H Blood Pressure 87/62 L Pulse Oximetry 99 07/23/19 02:00 07/03
[2019-07-23] MEDS: MUPIROCIN 2% OINT 22 GM TUBE 1 APPLIC EACH NARE (21:06)
[2019-07-23 21:24] LABS: Glucose Point of Care 168 (65-105)
[2019-07-24] VITALS (26 sets, daily range): BP systolic 91–105; BP diastolic 60–75; PULSE 82–114; RESP 16–28; TEMP 36–36.6; O2SAT 96–100
[2019-07-24] MEDS: FUROSEMIDE INJ 40 MG/4 ML VIAL 20 MG IV PUSH ×3 (00:26→12:13)
[2019-07-24] MEDS: IPRATROPIUM BR 0.02% INH SOLN 0.5 MG/2.5 ML VIAL INHALATION ×4 (03:10→21:46)
[2019-07-24 04:45] LABS: Hematocrit 27.6 % (42.0-52.0); Hemoglobin 8.9 g/dL (14.0-18.0); Mean Corpuscular HGB Conc 32.2 g/dl (32-36); Mean Corpuscular Hemoglobin 31.6 pg (26-34); Mean Corpuscular Volume 97.9 fl (80-100); Mean Platelet Volume 9.9 fl (7.4-10.4); Platelet Count Result 278 k/mm3 (150-375); Red Blood Count 2.82 M/mm3 (4.6-6.20); Red Cell Distribution Width 15.6 % (11.5-14.5); White Blood Count 13.8 K/mm3 (4.5-10.0)
[2019-07-24 05:03] LABS: Blood Urea Nitrogen 21 mg/dL (9-20); Carbon Dioxide 30 mmol/L (22-30); Chloride 94 mmol/L (98-107); Estimated CRCL calculation 98 ml/min; Estimated Glomerular Filt Rate > 60; Glucose 150 mg/dL (75-110); Magnesium 1.9 mg/dL (1.6-2.3); Phosphorus 3.8 mg/dL (2.5-4.5); Potassium 3.7 mmol/L (3.4-5.0); Sodium 133 mmol/L (137-145)
[2019-07-24] MEDS: LEVOTHYROXINE SODIUM 50 MCG TABLET PO (06:12)
[2019-07-24] MEDS: METOCLOPRAMIDE HCL 10 MG TABLET PO ×3 (06:12→18:52)
[2019-07-24] MEDS: PANTOPRAZOLE 40 MG TABLET PO (08:08)
[2019-07-24] MEDS: POLYSACCHARIDE IRON COMPLEX 150 MG CAPSULE PO (08:08)
[2019-07-24] MEDS: MUPIROCIN 2% OINT 22 GM TUBE 1 APPLIC EACH NARE ×2 (08:09→21:49)
[2019-07-24] MEDS: ASPIRIN 81 MG CHEWABLE TABLET PO (08:09)
[2019-07-24] MEDS: MAGNESIUM OXIDE 400 MG TABLET PO (08:09)
[2019-07-24] MEDS: SPIRONOLACTONE 25 MG TABLET PO (08:10)
[2019-07-24 08:24] LABS: Glucose Point of Care 161 (65-105)
[2019-07-24] MEDS: BUDESONIDE RESPULE NEB 0.5 MG/2 ML AMP INHALATION ×2 (08:45→21:46)
--- NOTE | 2019-07-24 11:25 | WPDINTPN ---
Progress Note: A&P Assessment and Plan (1) Pleural effusion: Code(s): J90 - Pleural effusion, not elsewhere classified Status: Acute Assessment and Plan: Chest CT yesterday showed [id number]-ys-brhgn pleural effusion on the right side with moderate left-sided pleural effusion. Associated atelectasis was seen as well. There is patchy left-sided airspace disease seen. Pleural fluid would need to be drained. Thoracentesis cannot be performed because of him being on Plavix. It has been stopped now at the time of presentation. Thoracentesis can be attempted on Thursday. Will send pleural fluid for all the analysis including chemistry, cytology and cultures. He may need thoracentesis on both sides but will get thoracentesis on the right side 1st to improve his respiratory mechanics. Unfortunately the pleural effusion may come back because of his cardiac status and this has been explained to his brother. (2) Sepsis: Code(s): A41.9 - Sepsis, unspecified organism Status: Acute Assessment and Plan: Seems to have pneumonia with an infiltrate on CT scan. He has associated tachycardia leukocytosis and lactic acid being elevated as well. Continue antibiotics with cefepime and vancomycin for now. Deescalate antibiotics with stopping vancomycin in the next 2-3 days if cultures remain negative. His MRSA screen is positive. Wean oxygen if tolerated. Currently he is requiring 2 L of oxygen through nasal cannula. Still symptomatic with shortness of breath. (3) Elevated troponin: Code(s): R79.89 - Other specified abnormal findings of blood chemistry Status: Acute Assessment and Plan: No significant chest pain. Likely associated with congestive heart failure exacerbation. Cardiology on board. No active intervention planned at this time. (4) Acute on chronic diastolic CHF (congestive heart failure): Code(s): I50.33 - Acute on chronic diastolic (congestive) heart failure Status: Acute Assessment and Plan: Does have a combination of systolic and diastolic congestive heart failure and now seems to have fluid overload. Continue Lasix for diuresis. Strict intake of record. Daily weight. Continue to monitor renal parameters and electrolytes. He had net positive fluid balance in the last 24 hours of about 900 cc but probably because of the albumin infusion he got for improvement of his blood pressure. Albumin infusion has been stopped. Cardiology evaluation recommendation appreciated. Will decrease the dose of metoprolol because of his borderline low blood pressure. Echo will be repeated here as well. Wean oxygen if tolerated. BiPAP on p.r.n. basis for increased work of breathing and worsening oxygenation . It seems that patient and his brother wants him to remain full code despite of his very poor functional baseline. At some point, probably would need to bring in palliative care to talk to him as well as brother for goals of care discussion. Hunt's catheter was placed as he is incontinent and we are already seeing some maceration of the buttocks. Doppler ultrasound has been found to be negative for DVT. (5) Pneumonia: Qualifiers: Laterality: unspecified laterality Lung location: unspecified part of lung Pneumonia type: due to unspecified organism Qualified Code(s): J18.9 - Pneumonia, unspecified organism Code(s): J18.9 - Pneumonia, unspecified organism Status: Acute Assessment and Plan: Continue antibiotics. Follow cultures. Send sputum culture if he is able to produce any. Pleural fluid analysis will be sent along with culture to rule out any infective component of the pleural space. (6) COPD (chronic obstructive pulmonary disease): Qualifiers: COPD type: unspecified COPD Qualified Code(s): J44.9 - Chronic obstructive pulmonary disease, unspecified Code(s): J44.9 - Chronic obstructive pulmonary di
--- NOTE | 2019-07-24 11:34 | PM.PNCARD ---
Progress Note: A&P Assessment and Plan (1) Acute and chronic respiratory failure: Code(s): J96.20 - Acute and chronic respiratory failure, unspecified whether with hypoxia or hypercapnia Status: Acute Assessment and Plan: Management as per ICU team. Supplemental oxygen. (2) Pleural effusion: Code(s): J90 - Pleural effusion, not elsewhere classified Status: Acute Assessment and Plan: Patient has significant bilateral pleural effusion which could be contributing to his shortness of breath/respiratory failure. He is awaiting thoracentesis. (3) Pneumonia: Qualifiers: Laterality: unspecified laterality Lung location: unspecified part of lung Pneumonia type: due to unspecified organism Qualified Code(s): J18.9 - Pneumonia, unspecified organism Code(s): J18.9 - Pneumonia, unspecified organism Status: Acute Assessment and Plan: Antibiotics as per primary team (4) CHF (congestive heart failure): Code(s): I50.9 - Heart failure, unspecified Status: Acute Assessment and Plan: Continue IV diuresis, monitor electrolytes and renal function. Due to relatively low blood pressures, his metoprolol succinate is being changed to metoprolol tartrate low-dose for now. Once patient's blood pressure is stable, may switch back to metoprolol succinate, and add other standard CHF medications. Will check echocardiogram with Doppler to reassess LV function. Subjective Date/time seen: 07/24/19 11:34 07/24/2019-patient reports minimal to no improvement in shortness of breath. Denies chest pain. His receiving antibiotics for pneumonia. He is awaiting thoracentesis for pleural effusion. Patient is currently receiving IV diuresis. Exam Const: General: no acute distress, alert and awake HENMT: Head: normocephalic and atraumatic Ears: hearing grossly normal bilaterally and external ears normal General nose exam: Normal external nose present and no epistaxis Face and sinus: normal facial exam and no ecchymosis Mouth: Yes tongue normal and Yes moist mucous membranes Teeth and gingiva: dentition normal Eyes: Conjunctivae: conjunctivae normal Sclera: sclerae normal Pupils: Equal, round and reactive pupils present EOM: EOMs intact bilaterally Neck: Neck: normal visual inspection, supple and no JVD Thyroid: thyroid normal Carotids: normal carotid upstroke Resp: Effort & Inspection: normal respiratory effort and able to speak in complete sentences Other: Absent breath sounds at bilateral bases Cardio: Jugular venous distension: JVD Rate: regular rate Rhythm: regular rhythm Heart sounds: S1 normal heart sound present, S2 normal heart sound present and Murmur heart sound present GI: Inspection: normal to inspection GI Palp: No abdominal tenderness Auscultation: normal bowel sounds Skin: Other: no rash on exposed areas, no cyanosis Neuro: Cranial nerves: Yes Equal, round and reactive pupils present and Yes Normal hearing present Other: alert, oriented, no major focal deficits on gross neurological examination Extrem: Other: Mild edema, no cyanosis, no major deformities Psych: Appearance: grossly normal Mental Status: mental status grossly normal Objective Data Vital Signs Vital Signs: Vital Signs - 24 hr 07/23/19 12:00 07/23/19 13:41 07/23/19 14:00 Temperature 36.4 C L Pulse Rate 122 H 111 H Respiratory Rate 23 H 20 Blood Pressure 99/70 L 97/66 L Pulse Oximetry 94 99 07/23/19 15:07 07/23/19 15:17 07/23/19 16:00 Temperature 36.3 C L Pulse Rate 110 H 110 H 109 H Respiratory Rate 27 H 23 H 21 H Blood Pressure 102/69 Pulse Oximetry 98 07/23/19 18:00 07/23/19 20:00 07/23/19 20:35 Temperature 36.6 C Pulse Rate 118 H 109 H 97 Respiratory Rate 29 H 21 H 20 Blood Pressure 96/65 L 98/72 L Pulse Oximetry 99 97 07/23/19 20:38 07/23/19 20:39 07/23/19 22:00 Temperature Pulse Rate 97 108 H 109 H Respiratory Rate 20 21 H
[2019-07-24] MEDS: INSULIN ASPART (*BKC) 100 UNITS/ML SUB-Q (12:13)
[2019-07-24] MEDS: POTASSIUM CHLORIDE 20 MEQ TABLET.ER PO (12:13)
[2019-07-24 12:57] LABS: Glucose Point of Care 201 (65-105)
--- NOTE | 2019-07-24 13:15 | PC.NURSE ---
This patient, Ananth Claros, was transferred to [facility] on 07/24/19 at 1300. Personal belongings sent with patient. Belongings list checked. Report given to maxi bullard. Appropriate documentation sent with patient.
--- NOTE | 2019-07-24 15:47 | PC.NURSE ---
1315- received pt from ICU - pt up in recliner chair- continued on MRSA isolation- pt oriented to room and rountine of floor
[2019-07-24 17:26] LABS: Glucose Point of Care 159 (65-105)
[2019-07-24 20:40] LABS: Glucose Point of Care 121 (65-105)
--- NOTE | 2019-07-24 21:38 | PM.IMPN ---
Progress Note: A&P Assessment and Plan (1) Acute on chronic diastolic CHF (congestive heart failure): Code(s): I50.33 - Acute on chronic diastolic (congestive) heart failure Status: Acute Assessment and Plan: EF 35-45%. Patient is extremely volume overloaded. Doppler negative for DVT. Currently on lasix 20mg IV Q6h. He did receive albumin for the low BP. UOP picked up today. Continue to advance medications to achieve negative fluid balance. Continue with strict I/Os. (2) Elevated troponin: Code(s): R79.89 - Other specified abnormal findings of blood chemistry Status: Acute Assessment and Plan: Trop peak to 0.10. EKG showing borderline ST T wave changes in the lateral leads. Denies chest pain. Cardiology following. (3) Sepsis: Code(s): A41.9 - Sepsis, unspecified organism Status: Acute Assessment and Plan: Present on admission with tachycardia, leukocytosis to 21K, and elevated lactic acid level in the setting of possible pneumonia. WBC up slightly from yesterday at 13.8K but better than on admission. No fevers. Currently on broad spectrum abx. Blood cultures NGTD but MRSA nasal swab positive and Bactroban started. UA not consistent with UTI but UCx growing Enterococcus species with sensitivities pending. Continue the same. (4) Pneumonia: Qualifiers: Laterality: unspecified laterality Lung location: unspecified part of lung Pneumonia type: due to unspecified organism Qualified Code(s): J18.9 - Pneumonia, unspecified organism Code(s): J18.9 - Pneumonia, unspecified organism Status: Acute Assessment and Plan: CT scan showing patchy left-sided pneumonia or edema. Continue Cefepime and Vanco. Continue nebulizer treatments. (5) Pleural effusion: Code(s): J90 - Pleural effusion, not elsewhere classified Status: Acute Assessment and Plan: CT scan showing moderate to large right and moderate left pleural effusions. Unable to do a thoracentesis x5 days because of his Plavix according to IR. Believe his last dose was 07/21/19. (6) Hypothyroid: Code(s): E03.9 - Hypothyroidism, unspecified Status: Chronic Assessment and Plan: TSH slightly elevated at 6.6 with a normal T4. Continue current dose of levothyroxine. (7) Type II diabetes mellitus: Code(s): E11.9 - Type 2 diabetes mellitus without complications Status: Chronic Assessment and Plan: Glucose reviewed on 07/24/19. Glucose mostly well controlled with glucose into 120-160 range. Continue Accu-Cheks with sliding scale coverage. Continue hypoglycemic protocol. Subjective Date/time seen: 07/24/19 21:38 Interval history: 63yo male here for CHF exacerbation and possibly pneumonia. Patient moved to the ICU 07/22 for possible respiratory failure and HoTN. Symptoms improved and patient was given Albumin. He is tolerating the Laisx IV now and able to move out of ICU today. He feels better. SOB improved. No CP. Eating better. Exam Narrative: Exam Narrative: Gen - chronically ill appearing male in NARD Chest - improved air exchange in the left lower lung field CV - RRR S1/S2 Abd - soft, NT/ND, +BS - Hunt secured draining clear yellow urine Ext - severe pitting edema in the lower extremities. Upper extremities with decreased edema Neuro - voice is stronger. Moving his UE without issue SKin - cool and dry Objective Data Vital Signs Vital Signs: Vital Signs - 24 hr 07/23/19 22:00 07/23/19 23:41 07/23/19 23:44 Temperature 97 F L Pulse Rate 109 H 92 95 Respiratory Rate 21 H 21 H 20 Blood Pressure 102/70 97/73 L Pulse Oximetry 97 97 07/24/19 01:53 07/24/19 03:11 07/24/19 03:18 Temperature Pulse Rate 97 82 102 H Respiratory Rate 21 H 22 H 22 H Blood Pressure 102/66 Pulse Oximetry 99 07/24/19 04:00 07/24/19 05:56 07/24/19 08:00 Temperature 97.6 F
[2019-07-24] MEDS: METOPROLOL TARTRATE 6.25 MG TABLET PO (21:46)
[2019-07-24 22:58] LABS: Vancomycin Trough 18.2 ug/mL (10.0-20.0)
[2019-07-25] VITALS (26 sets, daily range): BP systolic 84–115; BP diastolic 55–72; PULSE 81–115; RESP 18–28; TEMP 36–36.6; O2SAT 95–100
--- NOTE | 2019-07-25 | ECHO_ITS ---
Patient Info Name: Ananth Claros Age: 63 years : 1955 Gender: Male Ht: 76 in Wt: 253 lbs BSA: 2.50 m2 HR: 101 bpm BP: 107 / 71 mmHg Technical Quality: Good Exam Date: 07/25/2019 10:09 AM Exam Location: [facility] Patient Status: Inpatient Admit Date: 07/21/2019 Staff Ordering Physician: Logan Joyce MD Solution Strategist: Tung Knapp, TARYN, RT Attending Provider: Danny Garrett MD Exam Type: CA echo doppler color flow Study Info Indications I50.9 - Heart failure, unspecified Complete two-dimensional, color flow and Doppler transthoracic echocardiogram is performed. Summary 1. Left ventricular chamber dimension is severely enlarged. 2. Left ventricular systolic function is severely reduced, estimated at 20-25%. 3. There is moderately increased left ventricular wall thickness. 4. The left ventricular diastolic function is abnormal. 5. The basal inferior wall, mid inferior wall, and basal inferoseptal are akinetic. 6. The apex, anterior wall, anterolateral wall, anteroseptal wall, inferolateral wall, and mid inferoseptal are hypokinetic. 7. Left atrial chamber dimension is moderately enlarged. 8. Right atrial chamber dimension is mildly enlarged. 9. There is mild aortic valve regurgitation. 10. There is moderate to severe mitral valve regurgitation. 11. Moderate pulmonary hypertension, estimated pulmonary arterial systolic pressure is 54 mmHg. 12. There is moderate to severe tricuspid valve regurgitation. 13. There is mild pulmonic regurgitation. 14. Ascites is present. Pleural effusion is present. Left Ventricle Left ventricular chamber dimension is severely enlarged. Left ventricular systolic function is severely reduced, estimated at 20-25%. There is moderately increased left ventricular wall thickness. The left ventricular diastolic function is abnormal. The basal inferior wall, mid inferior wall, and basal inferoseptal are akinetic. The apex, anterior wall, anterolateral wall, anteroseptal wall, inferolateral wall, and mid inferoseptal are hypokinetic. Right Ventricle Right ventricular chamber dimension is normal. Right ventricular systolic function is normal. Left Atria Left atrial chamber dimension is moderately enlarged. Right Atria Right atrial chamber dimension is mildly enlarged. Atrial Septum Intact interatrial septum visualized by color flow imaging. Aortic Valve The aortic valve is trileaflet. There is mild aortic valve sclerosis. There is no aortic valve stenosis. There is mild aortic valve regurgitation. Pulmonic Valve The pulmonic valve is normal. There is no pulmonic valve stenosis. There is mild pulmonic regurgitation. Mitral Valve The mitral valve has normal leaflets. There is no mitral valve stenosis. There is moderate to severe mitral valve regurgitation. Tricuspid Valve The tricuspid valve leaflets are normal. There is no significant tricuspid valve stenosis. There is moderate to severe tricuspid valve regurgitation. Moderate pulmonary hypertension, estimated pulmonary arterial systolic pressure is 54 mmHg. Pericardium/Pleural The pericardium appears normal. There is trivial pericardial effusion. Ascites is present. Pleural effusion is present. Inferior Vena Cava Dilated inferior vena cava with <50% collapse upon inspiration consistent with elevated right atrial pressure, 10 mmHg. Aorta The aortic root size at the sinus of Valsalva is normal. Left Ventricular Outflow Tract
[2019-07-25] MEDS: ACETAMINOPHEN 500 MG TABLET 1000 MG PO (02:11)
[2019-07-25] MEDS: IPRATROPIUM BR 0.02% INH SOLN 0.5 MG/2.5 ML VIAL INHALATION ×4 (02:18→21:27)
[2019-07-25 05:29] LABS: Blood Urea Nitrogen 19 mg/dL (9-20); Calcium 7.8 mg/dL (8.4-10.2); Carbon Dioxide 25 mmol/L (22-30); Chloride 98 mmol/L (98-107); Estimated CRCL calculation 145 ml/min; Estimated Glomerular Filt Rate > 60; Glucose 121 mg/dL (75-110); Magnesium 1.9 mg/dL (1.6-2.3); Phosphorus 2.8 mg/dL (2.5-4.5); Potassium 3.6 mmol/L (3.4-5.0); Sodium 132 mmol/L (137-145)
[2019-07-25] MEDS: METOCLOPRAMIDE HCL 10 MG TABLET PO ×3 (06:47→18:34)
[2019-07-25 08:02] LABS: Hematocrit 26.9 % (42.0-52.0); Hemoglobin 8.8 g/dL (14.0-18.0); Mean Corpuscular HGB Conc 32.7 g/dl (32-36); Mean Corpuscular Hemoglobin 31.1 pg (26-34); Mean Corpuscular Volume 95.1 fl (80-100); Mean Platelet Volume 9.8 fl (7.4-10.4); Platelet Count Result 316 k/mm3 (150-375); Red Blood Count 2.83 M/mm3 (4.6-6.20); Red Cell Distribution Width 15.5 % (11.5-14.5)
[2019-07-25 09:21] LABS: Glucose Point of Care 126 (65-105)
[2019-07-25] MEDS: LEVOTHYROXINE SODIUM 50 MCG TABLET PO (10:21)
[2019-07-25] MEDS: PANTOPRAZOLE 40 MG TABLET PO (10:21)
[2019-07-25] MEDS: MUPIROCIN 2% OINT 22 GM TUBE 1 APPLIC EACH NARE ×2 (10:21→21:04)
[2019-07-25] MEDS: METOPROLOL TARTRATE 6.25 MG TABLET PO (10:23)
[2019-07-25] MEDS: MAGNESIUM OXIDE 400 MG TABLET PO (10:24)
--- NOTE | 2019-07-25 11:31 | PM.IMPN ---
Progress Note: A&P Assessment and Plan (1) CHF (congestive heart failure): Code(s): I50.9 - Heart failure, unspecified Status: Acute Assessment and Plan: EF 35-45%. Patient is extremely volume overloaded. Doppler negative for DVT. Currently on lasix 20mg IV Q6h. He did receive albumin for the low BP. UOP better yesterday. Continue to advance medications to achieve negative fluid balance. Continue with strict I/Os. Fluid restrict. Echocardiogram pending. (2) Sepsis: Code(s): A41.9 - Sepsis, unspecified organism Status: Acute Assessment and Plan: Present on admission with tachycardia, leukocytosis to 21K, and elevated lactic acid level in the setting of possible pneumonia +/- UTI. WBC unchanged at 13K. No fevers. Currently on broad spectrum abx with Vanco and Cefepime. Blood cultures NGTD but MRSA nasal swab positive and Bactroban started. UCx noted. Continue the same. (3) Elevated troponin: Code(s): R79.89 - Other specified abnormal findings of blood chemistry Status: Acute Assessment and Plan: Trop peak to 0.10. EKG showing borderline ST T wave changes in the lateral leads. Denies chest pain. Cardiology following and appreciate their input. Still on ASA but Plavix on hold for thoracentesis. (4) Pneumonia: Qualifiers: Laterality: unspecified laterality Lung location: unspecified part of lung Pneumonia type: due to unspecified organism Qualified Code(s): J18.9 - Pneumonia, unspecified organism Code(s): J18.9 - Pneumonia, unspecified organism Status: Acute Assessment and Plan: CT scan showing patchy left-sided pneumonia or edema. Continue Cefepime and Vanco. Continue nebulizer treatments. As above. (5) UTI (urinary tract infection): Code(s): N39.0 - Urinary tract infection, site not specified Status: Acute Assessment and Plan: UA not consistent with UTI but UCx growing Enterococcus species of >100K colonies. Sensitivities pending. Currently on Vanco. (6) Pleural effusion: Code(s): J90 - Pleural effusion, not elsewhere classified Status: Acute Assessment and Plan: CT scan showing moderate to large right and moderate left pleural effusions. Unable to do a thoracentesis x5 days because of his Plavix according to IR. Believe his last dose was 07/21/19. Will order right thoracentesis for today. May need left thoracentesisi as well. This is a therapeutic and diagnostic tap. (7) Type II diabetes mellitus: Code(s): E11.9 - Type 2 diabetes mellitus without complications Status: Chronic Assessment and Plan: Glucose reviewed on 07/24/19. Glucose well controlled with glucose into 120-150 range. Continue Accu-Cheks with sliding scale coverage. Continue hypoglycemic protocol. (8) Hypothyroid: Code(s): E03.9 - Hypothyroidism, unspecified Status: Chronic Assessment and Plan: TSH slightly elevated at 6.6 with a normal T4. Continue current dose of levothyroxine. Subjective Date/time seen: 07/25/19 11:31 Interval history: 63yo male here for CHF exacerbation and possibly pneumonia. Patient moved to the ICU 07/22 for possible respiratory failure and HoTN. Symptoms improved and patient was given Albumin. Moved to IMU on 07/24/19. Patient feels ?bad? today. He did feel well this morning. He ate well this morning. He denies any chest pain. Does feel short of breath. No nausea or vomiting. Blood pressure while in the room was 107/72. Exam Narrative: Exam Narrative: Gen - chronically ill appearing male in NARD lying semi recumbent in bed currently undergoing echocardiogram. Chest -decreased breath sounds in the flanks. Lungs clear anteriorly. Respiratory rate. CV - RRR S1/S2; Tele showing PVCs, brief runs of NSVT and possible intermittent bundle Abd - soft, obese, NT, +BS. no abd wall edema - Hunt secured draini
[2019-07-25] MEDS: ASPIRIN 81 MG CHEWABLE TABLET PO (13:02)
[2019-07-25] MEDS: POTASSIUM CHLORIDE 20 MEQ TABLET.ER PO ×2 (13:02→18:36)
[2019-07-25] MEDS: POLYSACCHARIDE IRON COMPLEX 150 MG CAPSULE PO ×2 (13:02→18:34)
[2019-07-25 13:15] LABS: Glucose Point of Care 141 (65-105)
--- NOTE | 2019-07-25 13:53 | PM.PNCARD ---
Progress Note: A&P Additional Plan Patient is in tenuous condition. For now he is tolerating diuresis and modest dose of beta-valdemar. I am tempted to try the very low dose of Entresto that I ordered on Thursday but at this point I think I am going to hold off on that until after his thoracentesis. Patient states they are planning on proceeding with thoracentesis tomorrow. Very low ejection fraction on current echo obviously prognosis is significantly limited at this point Time Spent With Patient Time with patient: less than 15 minutes Subjective Date/time seen: Date of service: 07/25/19 13:53 Interval history: Follow-up visit for congestive heart failure, severe systolic left ventricular dysfunction and problematic hypotension as well. Moderate-sized bilateral pleural effusions Patient reports to be feeling better today. Episode of hypotension on Thursday evening going into this past weekend was a likely is related to high diuresis, volume contraction. He did not receive even 1 dose of the Entresto that I ordered so this was not a consequence of this medication. Exam Const: General: comfortable HENMT: Mouth: Yes moist mucous membranes Eyes: Sclera: sclerae normal Pupils: Equal, round and reactive pupils present Neck: Neck: no JVD Thyroid: thyroid normal Resp: Effort & Inspection: normal respiratory effort Auscultation: clear to auscultation bilaterally Other: Significant dullness at the bases bilaterally Cardio: Rate: regular rate Other: Soft systolic murmur that does not radiate from the left sternal border GI: Auscultation: normal bowel sounds Skin: General skin exam: normal color Objective Data Vital Signs Vital Signs: Vital Signs - 24 hr 07/24/19 14:00 07/24/19 14:41 07/24/19 16:00 Temperature 36.0 C L Pulse Rate 103 H 112 H 106 H Respiratory Rate 24 H 20 Blood Pressure 99/70 L Pulse Oximetry 99 07/24/19 16:45 07/24/19 18:00 07/24/19 20:00 Temperature Pulse Rate 108 H 101 H 109 H Respiratory Rate Blood Pressure Pulse Oximetry 96 07/24/19 20:18 07/24/19 21:46 07/24/19 21:47 Temperature 36.4 C L Pulse Rate 103 H 102 H 102 H Respiratory Rate 16 24 H Blood Pressure 105/71 Pulse Oximetry 96 07/24/19 21:52 07/24/19 21:55 07/24/19 22:00 Temperature Pulse Rate 102 H 106 H 104 H Respiratory Rate 22 H 22 H Blood Pressure Pulse Oximetry 96 07/24/19 23:55 07/25/19 00:00 07/25/19 02:00 Temperature 36.4 C L Pulse Rate 103 H 99 100 Respiratory Rate 20 Blood Pressure 91/60 L Pulse Oximetry 100 100 07/25/19 02:18 07/25/19 02:26 07/25/19 04:00 Temperature 36.6 C Pulse Rate 99 101 H 101 H Respiratory Rate 22 H 20 18 Blood Pressure 84/61 L Pulse Oximetry 100 07/25/19 06:00 07/25/19 06:59 07/25/19 08:00 Temperature 36.0 C L Pulse Rate 81 96 Respiratory Rate 20 Blood Pressure 93/55 L 90/61 L Pulse Oximetry 99 07/25/19 09:19 07/25/19 09:21 07/25/19 09:27 Temperature Pulse Rate 110 H 110 H Respiratory Rate 18 18 Blood Pressure Pulse Oximetry 97 07/25/19 10:00 07/25/19 10:23 Temperature Pulse Rate 110 H 110 H Respiratory Rate 20 Blood Pressure 107/72 Pulse Oximetry Intake/Output Intake/Output: Intake & Output 07/22/19 07/23/19 07/24/19 07/25/19 23:59 23:59 23:59 23:59 Intake Total 1090 1940 1230 270 Output Total 200 1375 300 Balance 1090 1740 -145 -30 Meds/Results Medications: Active Medications Generic Name Dose Route Start Last Admin Trade Name Freq PRN Reason Stop Dose Admin Aspirin 81 mg 07/22/19 08:00 07/25/19 13:02 Aspirin Chewable PO 81 mg DAILY@0800 [facility] Administration Budesonide 0.5 mg 07/22/19 08:00 07/24/19 21:46 Pulmicort Respule Neb INHALATION 0.5 mg Q12HRT ROHIT Administration Dextrose 12.5 gm 07/21/19 22:00 Dextrose 50% Syringe IV PUSH PRN PRN Hypoglycemia Protocol Furosemide 20 mg 07/23/19 19:35 07/25/19 1
[2019-07-25 17:15] LABS: Glucose Point of Care 167 (65-105)
[2019-07-25] MEDS: FUROSEMIDE INJ 40 MG/4 ML VIAL 20 MG IV PUSH (18:32)
[2019-07-25 20:51] LABS: Glucose Point of Care 207 (65-105)
[2019-07-25] MEDS: BUDESONIDE RESPULE NEB 0.5 MG/2 ML AMP INHALATION (21:27)
[2019-07-26] VITALS (26 sets, daily range): BP systolic 76–110; BP diastolic 46–74; PULSE 87–101; RESP 20–24; TEMP 35.9–36.6; O2SAT 95–100
[2019-07-26 02:08] LABS: Blood Urea Nitrogen 18 mg/dL (9-20); Calcium 7.9 mg/dL (8.4-10.2); Carbon Dioxide 28 mmol/L (22-30); Chloride 94 mmol/L (98-107); Estimated CRCL calculation 145 ml/min; Estimated Glomerular Filt Rate > 60; Glucose 164 mg/dL (75-110); Magnesium 1.9 mg/dL (1.6-2.3); Potassium 3.7 mmol/L (3.4-5.0); Sodium 133 mmol/L (137-145)
[2019-07-26] MEDS: IPRATROPIUM BR 0.02% INH SOLN 0.5 MG/2.5 ML VIAL INHALATION ×3 (02:11→21:15)
[2019-07-26] MEDS: KCL 20 MEQ/SW 100 ML 100 ML 40 MEQ IVPB (02:33)
[2019-07-26] MEDS: METOCLOPRAMIDE HCL 10 MG TABLET PO ×2 (05:59→18:25)
[2019-07-26] MEDS: LEVOTHYROXINE SODIUM 50 MCG TABLET PO (05:59)
[2019-07-26] MEDS: FUROSEMIDE INJ 40 MG/4 ML VIAL 20 MG IV PUSH (05:59)
[2019-07-26 07:42] LABS: Glucose Point of Care 129 (65-105)
[2019-07-26] MEDS: BUDESONIDE RESPULE NEB 0.5 MG/2 ML AMP INHALATION ×2 (08:30→21:15)
[2019-07-26] MEDS: PANTOPRAZOLE 40 MG TABLET PO (08:41)
[2019-07-26] MEDS: MAGNESIUM OXIDE 400 MG TABLET PO (08:41)
[2019-07-26] MEDS: POLYSACCHARIDE IRON COMPLEX 150 MG CAPSULE PO ×2 (08:41→18:25)
[2019-07-26] MEDS: POTASSIUM CHLORIDE 20 MEQ TABLET.ER PO ×2 (08:41→18:25)
[2019-07-26] MEDS: ASPIRIN 81 MG CHEWABLE TABLET PO (08:41)
[2019-07-26] MEDS: METOPROLOL TARTRATE 6.25 MG TABLET PO ×2 (08:42→20:28)
[2019-07-26] MEDS: MUPIROCIN 2% OINT 22 GM TUBE 1 APPLIC EACH NARE ×2 (08:42→20:30)
[2019-07-26] MEDS: SPIRONOLACTONE 25 MG TABLET PO (08:53)
--- NOTE | 2019-07-26 09:28 | PM.IMPN ---
Progress Note: A&P Assessment and Plan (1) CHF (congestive heart failure): Qualifiers: Heart failure type: systolic Heart failure chronicity: acute on chronic Qualified Code(s): I50.23 - Acute on chronic systolic (congestive) heart failure Code(s): I50.9 - Heart failure, unspecified Status: Acute Assessment and Plan: Cardiology consulted and appreciate input. Current echocardiogram with EF 20-25%, abnormal diastolic function, basal inferior wall, mid inferior wall, and basal inferoseptal are akinetic, apex, anterior wall, anterolateral wall, anteroseptal wall, inferolateral wall, and mid inferoseptal are hypokinetic, moderate to severe mitral valve regurgitation, moderate pulmonary hypertension and moderate to severe tricuspid valve regurgitation. Venous Dopplers negative for DVT. Continue IV Lasix every 6 hours along with oral spironolactone. Continue fluid restriction. Will continue to monitor closely. (2) Pleural effusion: Code(s): J90 - Pleural effusion, not elsewhere classified Status: Acute Assessment and Plan: CT chest with moderate to large right and moderate left pleural effusions. Unable to do thoracentesis yesterday as had not had off Plavix long enough. Last dose of Plavix 07/21/2019. Plan for thoracentesis today. (3) Sepsis: Qualifiers: Sepsis type: sepsis due to unspecified organism Sepsis acute organ dysfunction status: unspecified Qualified Code(s): A41.9 - Sepsis, unspecified organism Code(s): A41.9 - Sepsis, unspecified organism Status: Acute Assessment and Plan: Criteria met on admission. Result of pneumonia, UTI. Remains on IV vancomycin and cefepime. MRSA nasal culture is positive. Blood cultures remain negative. Will continue to monitor. (4) Pneumonia: Qualifiers: Laterality: unspecified laterality Lung location: unspecified part of lung Pneumonia type: due to unspecified organism Qualified Code(s): J18.9 - Pneumonia, unspecified organism Code(s): J18.9 - Pneumonia, unspecified organism Status: Acute Assessment and Plan: CT chest with patchy left-sided pneumonia or edema. Continue cefepime and vancomycin. Continue nebulizer treatments including Pulmicort. (5) Elevated troponin: Code(s): R79.89 - Other specified abnormal findings of blood chemistry Status: Acute Assessment and Plan: Troponin peaked at 0.10. EKG showing borderline ST T wave changes in the lateral leads. Appreciate input from cardiology. Remains on ASA, metoprolol and diuretics. Telemetry reviewed on 07/26/2019 with heart rate controlled. Will continue to monitor. (6) UTI (urinary tract infection): Qualifiers: Urinary tract infection type: site unspecified Hematuria presence: without hematuria Qualified Code(s): N39.0 - Urinary tract infection, site not specified Code(s): N39.0 - Urinary tract infection, site not specified Status: Acute Assessment and Plan: UA not consistent with UTI but urine culture is growing Enterococcus. Sensitivities still pending. Continue IV vancomycin. (7) Type II diabetes mellitus: Qualifiers: Diabetes mellitus computer terminal operator insulin use: without computer terminal operator use Diabetes mellitus complication status: without complication Qualified Code(s): E11.9 - Type 2 diabetes mellitus without complications Code(s): E11.9 - Type 2 diabetes mellitus without complications Status: Chronic Assessment and Plan: Glucose reviewed on 07/26/2019 remains controlled. Home metformin on hold. Sliding scale insulin available if needed. Will continue to monitor. (8) Hypothyroid: Qualifiers: Hypothyroidism type: unspecified Qualified Code(s): E03.9 - Hypothyroidism, unspecified Code(s): E03.9 - Hypothyroidism, unspecified Status: Chronic Assessment and Plan: TSH slightly elevated at 6.6 with a n
[2019-07-26 09:33] LABS: Hematocrit 29.1 % (42.0-52.0); Hemoglobin 9.3 g/dL (14.0-18.0); Mean Platelet Volume 9.8 fl (7.4-10.4); Platelet Count Result 312 k/mm3 (150-375); Red Blood Count 2.91 M/mm3 (4.6-6.20); Red Cell Distribution Width 15.8 % (11.5-14.5); White Blood Count 12.6 K/mm3 (4.5-10.0)
[2019-07-26 09:34] LABS: Albumin Level 2.8 g/dL (3.5-5.1); Amylase 41 U/L (30-110); Bilirubin,Total 0.5 mg/dL (0.2-1.3); Glucose 124 mg/dL (75-110); Lactate Dehydrogenase 333 U/L (313-618)
[2019-07-26 09:35] LABS: Blood Urea Nitrogen 17 mg/dL (9-20); Calcium 7.9 mg/dL (8.4-10.2); Carbon Dioxide 30 mmol/L (22-30); Chloride 96 mmol/L (98-107); Estimated CRCL calculation 126 ml/min; Estimated Glomerular Filt Rate > 60; Glucose 127 mg/dL (75-110); Magnesium 1.8 mg/dL (1.6-2.3); Phosphorus 2.4 mg/dL (2.5-4.5); Potassium 3.7 mmol/L (3.4-5.0); Sodium 132 mmol/L (137-145)
[2019-07-26 09:39] LABS: INR 1.2; Prothrombin Time 14.6 Seconds (11.1-14.7)
[2019-07-26 12:08] LABS: Glucose Point of Care 116 (65-105)
--- NOTE | 2019-07-26 14:00 | PM.PNCARD ---
Progress Note: A&P Assessment and Plan (1) CHF (congestive heart failure): Qualifiers: Heart failure chronicity: acute on chronic Heart failure type: systolic Qualified Code(s): I50.23 - Acute on chronic systolic (congestive) heart failure Code(s): I50.9 - Heart failure, unspecified Status: Acute Assessment and Plan: Echo 07/25/2019: 1. Left ventricular chamber dimension is severely enlarged. 2. Left ventricular systolic function is severely reduced, estimated at 20-25%. 3. There is moderately increased left ventricular wall thickness. 4. The left ventricular diastolic function is abnormal. 5. The basal inferior wall, mid inferior wall, and basal inferoseptal are akinetic. 6. The apex, anterior wall, anterolateral wall, anteroseptal wall, inferolateral wall, and mid inferoseptal are hypokinetic. 7. Left atrial chamber dimension is moderately enlarged. 8. Right atrial chamber dimension is mildly enlarged. 9. There is mild aortic valve regurgitation. 10. There is moderate to severe mitral valve regurgitation. 11. Moderate pulmonary hypertension, estimated pulmonary arterial systolic pressure is 54 mmHg. 12. There is moderate to severe tricuspid valve regurgitation. 13. There is mild pulmonic regurgitation. 14. Ascites is present. Pleural effusion is present. Continue diuresing as blood pressure tolerates. Continue Metoprolol tartrate and spironolactone. Monitor renal function closely. Thoracentesis today. (2) Acute and chronic respiratory failure: Code(s): J96.20 - Acute and chronic respiratory failure, unspecified whether with hypoxia or hypercapnia Status: Acute Assessment and Plan: Management as per primary team. Supplemental oxygen. (3) Pleural effusion: Code(s): J90 - Pleural effusion, not elsewhere classified Status: Acute Assessment and Plan: Thoracentesis as above (4) Pneumonia: Qualifiers: Laterality: unspecified laterality Lung location: unspecified part of lung Pneumonia type: due to unspecified organism Qualified Code(s): J18.9 - Pneumonia, unspecified organism Code(s): J18.9 - Pneumonia, unspecified organism Status: Acute Assessment and Plan: Antibiotics as per primary team Additional Plan Long discussion with his brother regarding the results of the echocardiogram. One of his concerns is the edema as well as the generalized weakness of his arms and legs. Also expressed concern regarding his coronary artery disease and stents that he has had in the past, whether or not this is contributing to his decline in the ejection fraction. Ischemic workup could be considered once he has recovered from his pneumonia. Plan discussed with Dr. Dill 1445 07/26/2019 Subjective Date/time seen: 07/26/19 14:00 Interval history: Follow-up visit for: Congestive heart failure, severe systolic left ventricular dysfunction and problematic hypotension. Moderate-sized bilateral pleural effusions Date of service: 07/26/2019 Subjective: Waiting for thoracentesis. Hoping it will make him feel better. Hurts all over. Denied specific chest discomfort. Shortness of breath with and without activity. States he is able to lay flat however breathe better when he is sitting up. No lightheadedness. Review of Systems Constitutional: Constitutional: Reports fatigue and Reports weakness Eyes: Eyes: Denies blurry vision ENT: Reports Normal hearing present Cardiovascular: Cardiovascular: Denies chest pain, Reports pedal edema, Reports leg edema and Reports dyspnea Respiratory: Respiratory: Denies cough, Reports dyspnea and Denies wheezing Gastrointestinal: Gastrointestinal: Reports bloating, Denies nausea and Denies vomiting Genitourinary: Genitourinary: Denies hematuria Musculoskeletal
[2019-07-26 15:10] LABS: pH Pleural Fluid 7.496 (7.210-7.500)
[2019-07-26 16:36] LABS: Appearance Pleural Fluid Hazy (Clear); Color Pleural Fluid Yellow (Colorless); Nucleated Cell Pleural Fluid 178 /uL (0-1000); Pleural fluid source Pleural fluid; RBC Pleural Fluid 0 /uL (0-0)
[2019-07-26 16:37] LABS: Lymphocytes Pleural Fluid 49 %; Mesothelial Cells Pleural Flui 1 %; Monocytes Pleural Fluid 10 %; Neutrophils Pleural Fluid 40 % (0-25)
[2019-07-26 17:44] LABS: Glucose Point of Care 139 (65-105)
[2019-07-26 21:03] LABS: Glucose Point of Care 158 (65-105)
[2019-07-27] VITALS (27 sets, daily range): BP systolic 92–105; BP diastolic 54–65; PULSE 68–107; RESP 16–22; TEMP 36.2–36.6; O2SAT 94–100
[2019-07-27] MEDS: FUROSEMIDE INJ 40 MG/4 ML VIAL 20 MG IV PUSH ×3 (00:10→17:43)
[2019-07-27] MEDS: IPRATROPIUM BR 0.02% INH SOLN 0.5 MG/2.5 ML VIAL INHALATION ×4 (02:03→21:16)
[2019-07-27 05:50] LABS: Hematocrit 29.6 % (42.0-52.0); Hemoglobin 9.4 g/dL (14.0-18.0); Mean Corpuscular HGB Conc 31.8 g/dl (32-36); Mean Corpuscular Volume 97.7 fl (80-100); Mean Platelet Volume 9.6 fl (7.4-10.4); Platelet Count Result 300 k/mm3 (150-375); Red Blood Count 3.03 M/mm3 (4.6-6.20); Red Cell Distribution Width 16.1 % (11.5-14.5); White Blood Count 12.7 K/mm3 (4.5-10.0)
[2019-07-27 06:13] LABS: Blood Urea Nitrogen 17 mg/dL (9-20); Calcium 7.7 mg/dL (8.4-10.2); Carbon Dioxide 28 mmol/L (22-30); Chloride 95 mmol/L (98-107); Estimated CRCL calculation 126 ml/min; Estimated Glomerular Filt Rate > 60; Glucose 124 mg/dL (75-110); Magnesium 1.9 mg/dL (1.6-2.3); Phosphorus 2.4 mg/dL (2.5-4.5); Potassium 3.8 mmol/L (3.4-5.0); Sodium 132 mmol/L (137-145)
--- NOTE | 2019-07-27 06:37 | PC.NURSE ---
pt refused to take 0630 medication, stated he would take them later.
[2019-07-27] MEDS: PANTOPRAZOLE 40 MG TABLET PO (07:51)
[2019-07-27] MEDS: MAGNESIUM OXIDE 400 MG TABLET PO (07:51)
[2019-07-27] MEDS: POLYSACCHARIDE IRON COMPLEX 150 MG CAPSULE PO ×2 (07:51→17:44)
[2019-07-27] MEDS: METOCLOPRAMIDE HCL 10 MG TABLET PO ×3 (07:51→17:43)
[2019-07-27] MEDS: MUPIROCIN 2% OINT 22 GM TUBE 1 APPLIC EACH NARE ×2 (07:51→21:05)
[2019-07-27] MEDS: LEVOTHYROXINE SODIUM 50 MCG TABLET PO (07:51)
[2019-07-27] MEDS: ASPIRIN 81 MG CHEWABLE TABLET PO (07:51)
[2019-07-27 08:48] LABS: Vancomycin Trough 24.5 ug/mL (10.0-20.0)
[2019-07-27] MEDS: BUDESONIDE RESPULE NEB 0.5 MG/2 ML AMP INHALATION ×2 (08:48→21:16)
[2019-07-27 09:03] LABS: Glucose Point of Care 115 (65-105)
[2019-07-27] MEDS: METOPROLOL TARTRATE 6.25 MG TABLET PO ×3 (10:14→21:11)
[2019-07-27 12:16] LABS: Glucose Point of Care 144 (65-105)
--- NOTE | 2019-07-27 13:24 | PM.PNCARD ---
Progress Note: A&P Assessment and Plan (1) CHF (congestive heart failure): Qualifiers: Heart failure type: systolic Heart failure chronicity: acute on chronic Qualified Code(s): I50.23 - Acute on chronic systolic (congestive) heart failure Code(s): I50.9 - Heart failure, unspecified Status: Acute Assessment and Plan: EF 20-25%. Akinetic basal inferior, mid inferior and basal inferoseptal wall. [place], anterior wall, anterolateral wall, anteroseptal wall, inferior lateral wall and mid inferior septal wall are hypokinetic. Mild AI. Moderate to severe mitral regurgitation. Moderate pulmonary hypertension. Moderate to severe tricuspid regurgitation. Post thoracentesis 07/26/2019. 1000 cc of clear yellow fluid was removed. Breathing improved. Will try to increase his diuretics. Will change to 40 mg Q 8 hours as long as his systolic blood pressures above ninety-five. Will also try to increase his metoprolol to 6.25 mg q.8 hours as well due to another nonsustained run of ventricular tachycardia which was asymptomatic. Hold for systolic blood pressure 95. (2) Acute and chronic respiratory failure: Code(s): J96.20 - Acute and chronic respiratory failure, unspecified whether with hypoxia or hypercapnia Status: Acute Assessment and Plan: Management as per primary team. Supplemental oxygen. (3) Pleural effusion: Code(s): J90 - Pleural effusion, not elsewhere classified Status: Acute Assessment and Plan: Thoracentesis as above (4) Pneumonia: Qualifiers: Laterality: unspecified laterality Lung location: unspecified part of lung Pneumonia type: due to unspecified organism Qualified Code(s): J18.9 - Pneumonia, unspecified organism Code(s): J18.9 - Pneumonia, unspecified organism Status: Acute Assessment and Plan: Antibiotics as per primary team Additional Plan Plan discussed with Dr. Dill . Subjective Date/time seen: 07/27/19 13:24 Interval history: Follow-up visit for: Congestive heart failure, severe systolic left ventricular dysfunction and problematic hypotension. Moderate-sized bilateral pleural effusions Date of service: 07/27/2019 Subjective: Breathing better since thoracentesis yesterday. Still short of breath with exertional activity denied chest discomfort or lightheadedness. Buttocks is sore. Hurts all over. Review of Systems Constitutional: Constitutional: Reports fatigue and Reports weakness Eyes: Eyes: Denies blurry vision ENT: Reports Normal hearing present Cardiovascular: Cardiovascular: Denies chest pain, Reports pedal edema, Reports leg edema and Reports dyspnea Respiratory: Respiratory: Denies cough, Reports dyspnea and Denies wheezing Gastrointestinal: Gastrointestinal: Reports bloating, Denies nausea and Denies vomiting Genitourinary: Genitourinary: Denies hematuria Musculoskeletal: Musculoskeletal: Reports arthralgias Integumentary/Breasts: Skin/Breast: Denies wounds Neurologic: Reports Normal hearing present and Reports weakness Psychiatric: Psychiatric: Denies anxiety Endocrine: Endocrine: Reports fatigue Hematologic/Lymphatic: Hematologic/Lymphatic: Reports easy bruising Allergic/Immunologic: Allergic/Immunologic: Denies wheezing Exam Const: General: comfortable, no acute distress, alert and awake Other: Just back to bed after sitting up in the chair. Total lift in and out of bed HENMT: Head: normocephalic and atraumatic Ears: hearing grossly normal bilaterally and external ears normal General nose exam: Normal external nose present and no epistaxis Face and sinus: normal facial exam and no ecchymosis Mouth: Yes moist mucous membranes Teeth and gingiva: dentition normal Eyes: Conjunctivae: conjunctivae normal Sclera: sclerae normal
--- NOTE | 2019-07-27 13:35 | PM.IMPN ---
Progress Note: A&P Assessment and Plan (1) CHF (congestive heart failure): Qualifiers: Heart failure chronicity: acute on chronic Heart failure type: systolic Qualified Code(s): I50.23 - Acute on chronic systolic (congestive) heart failure Code(s): I50.9 - Heart failure, unspecified Status: Acute Assessment and Plan: Cardiology consulted and appreciate input. Current echocardiogram with EF 20-25%, abnormal diastolic function, basal inferior wall, mid inferior wall, and basal inferoseptal are akinetic, apex, anterior wall, anterolateral wall, anteroseptal wall, inferolateral wall, and mid inferoseptal are hypokinetic, moderate to severe mitral valve regurgitation, moderate pulmonary hypertension and moderate to severe tricuspid valve regurgitation. Venous Dopplers negative for DVT. Discussed with Cardiology today. IV Lasix adjusted. Remains on oral spironolactone. Continue fluid restriction. Will continue to monitor closely. (2) Pleural effusion: Code(s): J90 - Pleural effusion, not elsewhere classified Status: Acute Assessment and Plan: CT chest with moderate to large right and moderate left pleural effusions. Ultrasound-guided thoracentesis completed on 07/26/2019 with removal of 1000 mL clear fluid. PH of pleural fluid is normal. IV Lasix adjusted as noted above. Will monitor. (3) Sepsis: Qualifiers: Sepsis acute organ dysfunction status: unspecified Sepsis type: sepsis due to unspecified organism Qualified Code(s): A41.9 - Sepsis, unspecified organism Code(s): A41.9 - Sepsis, unspecified organism Status: Acute Assessment and Plan: Criteria met on admission. Result of pneumonia, UTI. Will continue IV vancomycin and cefepime. MRSA nasal culture is positive. Blood cultures remain negative. Will continue to monitor. (4) Pneumonia: Qualifiers: Laterality: unspecified laterality Lung location: unspecified part of lung Pneumonia type: due to unspecified organism Qualified Code(s): J18.9 - Pneumonia, unspecified organism Code(s): J18.9 - Pneumonia, unspecified organism Status: Acute Assessment and Plan: CT chest with patchy left-sided pneumonia or edema. Continue cefepime and vancomycin. Continue nebulizer treatments including Pulmicort. Currently on 2 L oxygen. Clinically improving. (5) Elevated troponin: Code(s): R79.89 - Other specified abnormal findings of blood chemistry Status: Acute Assessment and Plan: Troponin peaked at 0.10. EKG showing borderline ST T wave changes in the lateral leads. Appreciate input from cardiology. Telemetry reviewed on 07/27/2019 with patient noted to have another asymptomatic run of ventricular tachycardia. Metoprolol adjusted by Cardiology today. Also remains on ASA. Will continue to monitor. (6) UTI (urinary tract infection): Qualifiers: Hematuria presence: without hematuria Urinary tract infection type: site unspecified Qualified Code(s): N39.0 - Urinary tract infection, site not specified Code(s): N39.0 - Urinary tract infection, site not specified Status: Acute Assessment and Plan: UA not consistent with UTI but urine culture is now growing VRE. Continue IV vancomycin as noted above. (7) Type II diabetes mellitus: Qualifiers: Diabetes mellitus complication status: without complication Diabetes mellitus watermelon inspector insulin use: without [facility] use Qualified Code(s): E11.9 - Type 2 diabetes mellitus without complications Code(s): E11.9 - Type 2 diabetes mellitus without complications Status: Chronic Assessment and Plan: Glucose reviewed on 07/27/2019 remains well controlled. Home metformin remains on hold. Sliding scale insulin available if needed. Will continue to monitor. (8) Hypothyroid: Qualifiers: Hypothyroidism type: unspecified Qualified Code(s): E03.9
[2019-07-27 17:39] LABS: Glucose Point of Care 143 (65-105)
[2019-07-27] MEDS: POTASSIUM CHLORIDE 20 MEQ PACKET (FOR LIQUID) PO (17:43)
[2019-07-27] MEDS: FUROSEMIDE INJ 40 MG/4 ML VIAL IV PUSH (21:08)
[2019-07-27 21:13] LABS: Glucose Point of Care 176 (65-105)
[2019-07-28] VITALS (32 sets, daily range): BP systolic 93–109; BP diastolic 51–64; PULSE 57–101; RESP 16–22; TEMP 35.7–36.6; O2SAT 94–100; BMI 29.9
[2019-07-28] MEDS: IPRATROPIUM BR 0.02% INH SOLN 0.5 MG/2.5 ML VIAL INHALATION ×4 (03:20→20:29)
[2019-07-28 05:35] LABS: Blood Urea Nitrogen 17 mg/dL (9-20); Calcium 7.6 mg/dL (8.4-10.2); Carbon Dioxide 29 mmol/L (22-30); Chloride 95 mmol/L (98-107); Estimated CRCL calculation 128 ml/min; Estimated Glomerular Filt Rate > 60; Glucose 136 mg/dL (75-110); Magnesium 1.8 mg/dL (1.6-2.3); Phosphorus 2.4 mg/dL (2.5-4.5); Potassium 3.6 mmol/L (3.4-5.0); Sodium 132 mmol/L (137-145)
[2019-07-28] MEDS: FUROSEMIDE INJ 40 MG/4 ML VIAL IV PUSH ×3 (06:20→20:58)
[2019-07-28] MEDS: METOPROLOL TARTRATE 6.25 MG TABLET PO ×3 (06:21→20:58)
[2019-07-28] MEDS: METOCLOPRAMIDE HCL 10 MG TABLET PO ×3 (06:21→16:10)
[2019-07-28] MEDS: LEVOTHYROXINE SODIUM 50 MCG TABLET PO (06:21)
[2019-07-28 08:13] LABS: Glucose Point of Care 160 (65-105)
[2019-07-28] MEDS: POLYSACCHARIDE IRON COMPLEX 150 MG CAPSULE PO ×2 (08:32→16:09)
[2019-07-28] MEDS: MUPIROCIN 2% OINT 22 GM TUBE 1 APPLIC EACH NARE (08:32)
[2019-07-28] MEDS: MAGNESIUM OXIDE 400 MG TABLET PO (08:32)
[2019-07-28] MEDS: ASPIRIN 81 MG CHEWABLE TABLET PO (08:32)
[2019-07-28] MEDS: SPIRONOLACTONE 25 MG TABLET PO (08:33)
[2019-07-28] MEDS: PANTOPRAZOLE 40 MG TABLET PO (08:33)
[2019-07-28] MEDS: POTASSIUM CHLORIDE 20 MEQ PACKET (FOR LIQUID) PO (08:33)
[2019-07-28] MEDS: BUDESONIDE RESPULE NEB 0.5 MG/2 ML AMP INHALATION ×2 (08:41→20:29)
--- NOTE | 2019-07-28 10:53 | PM.IMPN ---
Progress Note: A&P Assessment and Plan (1) CHF (congestive heart failure): Qualifiers: Heart failure chronicity: acute on chronic Heart failure type: systolic Qualified Code(s): I50.23 - Acute on chronic systolic (congestive) heart failure Code(s): I50.9 - Heart failure, unspecified Status: Acute Assessment and Plan: Cardiology consulted and appreciate input. Current echocardiogram with EF 20-25%, abnormal diastolic function, basal inferior wall, mid inferior wall, and basal inferoseptal are akinetic, apex, anterior wall, anterolateral wall, anteroseptal wall, inferolateral wall, and mid inferoseptal are hypokinetic, moderate to severe mitral valve regurgitation, moderate pulmonary hypertension and moderate to severe tricuspid valve regurgitation. Venous Dopplers negative for DVT. Remains on IV Lasix. Now also started on IV dobutamine by Cardiology. Fluid restriction remains in place. Oral spironolactone. Potassium adjusted back to pill form. Telemetry reviewed on 07/28/2019 with heart rate controlled. Will continue to monitor. (2) Pleural effusion: Code(s): J90 - Pleural effusion, not elsewhere classified Status: Acute Assessment and Plan: CT chest with moderate to large right and moderate left pleural effusions. Ultrasound-guided thoracentesis completed on 07/26/2019 with removal of 1000 mL clear fluid. PH of pleural fluid is normal. With stable airspace opacities of the mid and lower lung zones and moderate-sized pleural effusions also stable. Continue IV Lasix and oral spironolactone as noted above. Will monitor. (3) Sepsis: Qualifiers: Sepsis acute organ dysfunction status: unspecified Sepsis type: sepsis due to unspecified organism Qualified Code(s): A41.9 - Sepsis, unspecified organism Code(s): A41.9 - Sepsis, unspecified organism Status: Acute Assessment and Plan: Criteria met on admission. Result of pneumonia, UTI. Will continue IV vancomycin and cefepime currently at Day #6. May be able to discontinue antibiotics in next 1-2 days. MRSA nasal culture is positive. Blood cultures remain negative. Will continue to monitor. (4) Pneumonia: Qualifiers: Laterality: unspecified laterality Lung location: unspecified part of lung Pneumonia type: due to unspecified organism Qualified Code(s): J18.9 - Pneumonia, unspecified organism Code(s): J18.9 - Pneumonia, unspecified organism Status: Acute Assessment and Plan: CT chest with patchy left-sided pneumonia or edema. Continue cefepime and vancomycin as noted above but should be able to discontinue soon. Continue nebulizer treatments including Pulmicort. Currently on 2 L oxygen. Clinically improving. (5) Elevated troponin: Code(s): R79.89 - Other specified abnormal findings of blood chemistry Status: Acute Assessment and Plan: Troponin peaked at 0.10. EKG showing borderline ST T wave changes in the lateral leads. Appreciate input from cardiology. Remains on metoprolol and aspirin. Continue to monitor. (6) UTI (urinary tract infection): Qualifiers: Hematuria presence: without hematuria Urinary tract infection type: site unspecified Qualified Code(s): N39.0 - Urinary tract infection, site not specified Code(s): N39.0 - Urinary tract infection, site not specified Status: Acute Assessment and Plan: UA not consistent with UTI but urine culture is now growing VRE. Continue IV vancomycin as noted above. (7) Type II diabetes mellitus: Qualifiers: Diabetes mellitus complication status: without complication Diabetes mellitus [facility] insulin use: without [facility] use Qualified Code(s): E11.9 - Type 2 diabetes mellitus without complications Code(s): E11.9 - Type 2 diabetes mellitus without complications Status: Chronic Assessment and Plan: Glucose reviewed on 07/28/2019 an
[2019-07-28 11:24] LABS: Glucose Point of Care 145 (65-105)
[2019-07-28] MEDS: POTASSIUM CHLORIDE 10 MEQ TABLET.ER 20 MEQ PO ×2 (12:47→16:09)
[2019-07-28] MEDS: METOPROLOL TARTRATE INJ 5 MG/5 ML VIAL IV PUSH (12:50)
--- NOTE | 2019-07-28 13:45 | PCNSR ---
On 07/28/19, the student, Alison Gomez, provided care and completed [facility] documentation on this patient. I have reviewed the student's documentation and agree with the findings.
--- NOTE | 2019-07-28 13:55 | PM.PNCARD ---
Progress Note: A&P Assessment and Plan (1) CHF (congestive heart failure): Qualifiers: Heart failure type: systolic Heart failure chronicity: acute on chronic Qualified Code(s): I50.23 - Acute on chronic systolic (congestive) heart failure Code(s): I50.9 - Heart failure, unspecified Status: Acute Assessment and Plan: EF 20-25%. Akinetic basal inferior, mid inferior and basal inferoseptal wall. [place], anterior wall, anterolateral wall, anteroseptal wall, inferior lateral wall and mid inferior septal wall are hypokinetic. Mild AI. Moderate to severe mitral regurgitation. Moderate pulmonary hypertension. Moderate to severe tricuspid regurgitation. His blood pressure is soft Marginal progress. Continue IV furosemide better going to start him and inotropic agent at this point. Will also initiate dobutamine therapy a 2.5 mcg/kg / minute (2) Acute and chronic respiratory failure: Code(s): J96.20 - Acute and chronic respiratory failure, unspecified whether with hypoxia or hypercapnia Status: Acute Assessment and Plan: Management as per primary team. Supplemental oxygen. (3) Pleural effusion: Code(s): J90 - Pleural effusion, not elsewhere classified Status: Acute Assessment and Plan: Thoracentesis as above (4) Pneumonia: Qualifiers: Laterality: unspecified laterality Lung location: unspecified part of lung Pneumonia type: due to unspecified organism Qualified Code(s): J18.9 - Pneumonia, unspecified organism Code(s): J18.9 - Pneumonia, unspecified organism Status: Acute Assessment and Plan: Antibiotics as per primary team Additional Plan Will repeat a PA and lateral chest x-ray today Subjective Date/time seen: 07/28/19 13:55 Interval history: Follow-up visit for: Congestive heart failure, severe systolic left ventricular dysfunction and problematic hypotension. Moderate-sized bilateral pleural effusions Date of service: 07/28/2019 Subjective: Breathing better since thoracentesis. No chest pain. Still very swollen. Review of Systems Constitutional: Constitutional: Reports fatigue and Reports weakness Eyes: Eyes: Denies blurry vision ENT: Reports Normal hearing present Cardiovascular: Cardiovascular: Denies chest pain, Reports pedal edema, Reports leg edema and Reports dyspnea Respiratory: Respiratory: Denies cough, Reports dyspnea and Denies wheezing Gastrointestinal: Gastrointestinal: Reports bloating, Denies nausea and Denies vomiting Genitourinary: Genitourinary: Denies hematuria Musculoskeletal: Musculoskeletal: Reports arthralgias Integumentary/Breasts: Skin/Breast: Denies wounds Neurologic: Reports Normal hearing present and Reports weakness Psychiatric: Psychiatric: Denies anxiety Endocrine: Endocrine: Reports fatigue Hematologic/Lymphatic: Hematologic/Lymphatic: Reports easy bruising Allergic/Immunologic: Allergic/Immunologic: Denies wheezing Exam Const: General: comfortable, no acute distress, alert and awake Other: Just back to bed after sitting up in the chair. Total lift in and out of bed HENMT: Head: normocephalic and atraumatic Ears: hearing grossly normal bilaterally and external ears normal General nose exam: Normal external nose present and no epistaxis Face and sinus: normal facial exam and no ecchymosis Mouth: Yes moist mucous membranes Teeth and gingiva: dentition normal Eyes: Conjunctivae: conjunctivae normal Sclera: sclerae normal EOM: EOMs intact bilaterally Neck: Neck: normal visual inspection, supple and no JVD (Difficult to assess due to thickness of neck) Thyroid: thyroid normal Carotids: normal carotid upstroke Other: Patient has a thick neck, difficult to assess she Resp: Effort & Inspection: normal respiratory effort and able to speak in c
--- NOTE | 2019-07-28 14:46 | PC.NURSE ---
On 07/28/19, the student, [lilly esparza ], provided care and completed [facility] documentation on this patient. I have reviewed the student's documentation and agree with the findings.
[2019-07-28 15:26] LABS: Glucose Point of Care 158 (65-105)
[2019-07-28] MEDS: DOBUTamine 250 MG/D5W 250 ML 250 MG/250 ML BAG 16.7 MG IV CONT (16:03)
[2019-07-28 20:14] LABS: Glucose Point of Care 182 (65-105)
[2019-07-29] VITALS (29 sets, daily range): BP systolic 91–114; BP diastolic 46–63; PULSE 86–98; RESP 16–24; TEMP 35.8–36.2; O2SAT 95–99
[2019-07-29] MEDS: IPRATROPIUM BR 0.02% INH SOLN 0.5 MG/2.5 ML VIAL INHALATION ×4 (02:10→21:17)
[2019-07-29] MEDS: METOPROLOL TARTRATE 6.25 MG TABLET PO ×3 (05:29→21:24)
[2019-07-29] MEDS: LEVOTHYROXINE SODIUM 50 MCG TABLET PO (05:29)
[2019-07-29] MEDS: FUROSEMIDE INJ 40 MG/4 ML VIAL IV PUSH ×3 (05:33→21:24)
[2019-07-29] MEDS: METOCLOPRAMIDE HCL 10 MG TABLET PO ×3 (05:35→16:24)
[2019-07-29 06:24] LABS: Glucose Pleural Fluid 139 mg/dL; LDH Pleural Fluid 35 U/L; Total Protein Pleural Fluid <3.0 g/dL
[2019-07-29] MEDS: DOBUTamine 250 MG/D5W 250 ML 250 MG/250 ML BAG 16.7 MG IV CONT ×2 (07:05→22:49)
[2019-07-29 07:45] LABS: Blood Urea Nitrogen 17 mg/dL (9-20); Calcium 7.8 mg/dL (8.4-10.2); Carbon Dioxide 28 mmol/L (22-30); Chloride 99 mmol/L (98-107); Estimated CRCL calculation 128 ml/min; Estimated Glomerular Filt Rate > 60; Glucose 179 mg/dL (75-110); Magnesium 1.7 mg/dL (1.6-2.3); Phosphorus 2.6 mg/dL (2.5-4.5); Sodium 133 mmol/L (137-145)
[2019-07-29 08:21] LABS: Glucose Point of Care 181 (65-105)
[2019-07-29] MEDS: PANTOPRAZOLE 40 MG TABLET PO (08:38)
[2019-07-29] MEDS: POLYSACCHARIDE IRON COMPLEX 150 MG CAPSULE PO ×2 (08:38→16:24)
[2019-07-29] MEDS: MAGNESIUM OXIDE 400 MG TABLET PO (08:39)
[2019-07-29] MEDS: SPIRONOLACTONE 25 MG TABLET PO (08:39)
[2019-07-29] MEDS: ASPIRIN 81 MG CHEWABLE TABLET PO (08:39)
[2019-07-29] MEDS: POTASSIUM CHLORIDE 10 MEQ TABLET.ER 20 MEQ PO ×2 (08:45→16:24)
--- NOTE | 2019-07-29 09:52 | PM.IMPN ---
Progress Note: A&P Assessment and Plan (1) CHF (congestive heart failure): Qualifiers: Heart failure type: systolic Heart failure chronicity: acute on chronic Qualified Code(s): I50.23 - Acute on chronic systolic (congestive) heart failure Code(s): I50.9 - Heart failure, unspecified Status: Acute Assessment and Plan: Cardiology consulted and appreciate input. Current echocardiogram with EF 20-25%, abnormal diastolic function, basal inferior wall, mid inferior wall, and basal inferoseptal are akinetic, apex, anterior wall, anterolateral wall, anteroseptal wall, inferolateral wall, and mid inferoseptal are hypokinetic, moderate to severe mitral valve regurgitation, moderate pulmonary hypertension and moderate to severe tricuspid valve regurgitation. Venous Dopplers negative for DVT. Making slow progress. Now on IV dobutamine along with IV Lasix and oral spironolactone. Continue fluid restriction. Will continue to monitor. Telemetry reviewed on 07/29/2019 with heart rate controlled. (2) Pleural effusion: Code(s): J90 - Pleural effusion, not elsewhere classified Status: Acute Assessment and Plan: CT chest with moderate to large right and moderate left pleural effusions. Ultrasound-guided thoracentesis completed on 07/26/2019 with removal of 1000 mL clear fluid. PH of pleural fluid is normal. Repeat chest x-ray on 07/28/2019 with stable airspace opacities of the mid and lower lung zones and moderate-sized pleural effusions also stable. Continue IV Lasix and oral spironolactone as noted above. Will monitor. (3) Sepsis: Qualifiers: Sepsis type: sepsis due to unspecified organism Sepsis acute organ dysfunction status: unspecified Qualified Code(s): A41.9 - Sepsis, unspecified organism Code(s): A41.9 - Sepsis, unspecified organism Status: Acute Assessment and Plan: Criteria met on admission. Result of pneumonia, UTI. Blood cultures final and negative. MRSA nasal culture positive in has completed treatment with Bactroban. Has been on IV vancomycin and cefepime since 07/23/2019. Will plan to discontinue IV antibiotics after today. Continue to monitor. (4) Pneumonia: Qualifiers: Laterality: unspecified laterality Lung location: unspecified part of lung Pneumonia type: due to unspecified organism Qualified Code(s): J18.9 - Pneumonia, unspecified organism Code(s): J18.9 - Pneumonia, unspecified organism Status: Acute Assessment and Plan: CT chest with patchy left-sided pneumonia or edema. Plan to discontinue IV cefepime and vancomycin after doses today. Remains on 2 L of oxygen. Continue nebulizer treatments including Pulmicort. Will continue to monitor. (5) Elevated troponin: Code(s): R79.89 - Other specified abnormal findings of blood chemistry Status: Acute Assessment and Plan: Troponin peaked at 0.10. EKG showing borderline ST T wave changes in the lateral leads. Appreciate input from cardiology. Remains on metoprolol and aspirin. Continue to monitor. (6) UTI (urinary tract infection): Qualifiers: Urinary tract infection type: site unspecified Hematuria presence: without hematuria Qualified Code(s): N39.0 - Urinary tract infection, site not specified Code(s): N39.0 - Urinary tract infection, site not specified Status: Acute Assessment and Plan: UA not consistent with UTI but urine culture is now growing VRE. Continue IV vancomycin through today then discontinue as noted above. (7) Type II diabetes mellitus: Qualifiers: Diabetes mellitus group home insulin use: without assistant terminal manager use Diabetes mellitus complication status: without complication Qualified Code(s): E11.9 - Type 2 diabetes mellitus without complications Code(s): E11.9 - Type 2 diabetes mellitus without complications Status: Chronic Assessment and Plan: Glucose re
[2019-07-29] MEDS: BUDESONIDE RESPULE NEB 0.5 MG/2 ML AMP INHALATION ×2 (10:06→21:17)
[2019-07-29 12:23] LABS: Glucose Point of Care 172 (65-105)
--- NOTE | 2019-07-29 14:59 | PM.PNCARD ---
Progress Note: A&P Assessment and Plan (1) CHF (congestive heart failure): Qualifiers: Heart failure type: systolic Heart failure chronicity: acute on chronic Qualified Code(s): I50.23 - Acute on chronic systolic (congestive) heart failure Code(s): I50.9 - Heart failure, unspecified Status: Acute Assessment and Plan: EF 20-25%. Akinetic basal inferior, mid inferior and basal inferoseptal wall. [place], anterior wall, anterolateral wall, anteroseptal wall, inferior lateral wall and mid inferior septal wall are hypokinetic. Mild AI. Moderate to severe mitral regurgitation. Moderate pulmonary hypertension. Moderate to severe tricuspid regurgitation. Blood pressure improved. Marginal progress. Continue IV furosemide. Continue dobutamine at 2.5 mcg/kg / minute Chest x-ray 07/28/2027: Report states that the airspace opacities in the mid and lower zones, cardiomegaly and moderate size pleural effusions are stable. Has not diuresed very well but blood pressure will not tolerate being more aggressive at this point. Will give him another 24 hours at 2.5 mcg/kg/min to evaluate response. May need to go to 5 mcg/kg/min Accurate intake and output. Daily weight. May need to initiate fluid restriction if he is drinking more than 1800 cc a day. He is also getting IV fluids with his antibiotics. (2) Acute and chronic respiratory failure: Code(s): J96.20 - Acute and chronic respiratory failure, unspecified whether with hypoxia or hypercapnia Status: Acute Assessment and Plan: Management as per primary team. Supplemental oxygen. (3) Pleural effusion: Code(s): J90 - Pleural effusion, not elsewhere classified Status: Acute Assessment and Plan: Thoracentesis as above (4) Pneumonia: Qualifiers: Laterality: unspecified laterality Lung location: unspecified part of lung Pneumonia type: due to unspecified organism Qualified Code(s): J18.9 - Pneumonia, unspecified organism Code(s): J18.9 - Pneumonia, unspecified organism Status: Acute Assessment and Plan: Antibiotics as per primary team Subjective Date/time seen: 07/29/19 14:59 Interval history: Follow-up visit for: Congestive heart failure, severe systolic left ventricular dysfunction and problematic hypotension. Moderate-sized bilateral pleural effusions Date of service: 07/29/2019 Subjective: Every thinks about the same. No chest discomfort. Short of breath with exertional activity. Very weak. Abdomen bloated. No changes lower extremity edema swelling. Review of Systems Constitutional: Constitutional: Reports fatigue and Reports weakness Eyes: Eyes: Denies blurry vision ENT: Reports Normal hearing present Cardiovascular: Cardiovascular: Denies chest pain, Reports pedal edema, Reports leg edema and Reports dyspnea Respiratory: Respiratory: Denies cough, Reports dyspnea and Denies wheezing Gastrointestinal: Gastrointestinal: Reports bloating, Denies nausea and Denies vomiting Genitourinary: Genitourinary: Denies hematuria Musculoskeletal: Musculoskeletal: Reports arthralgias Integumentary/Breasts: Skin/Breast: Denies wounds Neurologic: Reports Normal hearing present and Reports weakness Psychiatric: Psychiatric: Denies anxiety Endocrine: Endocrine: Reports fatigue Hematologic/Lymphatic: Hematologic/Lymphatic: Reports easy bruising Allergic/Immunologic: Allergic/Immunologic: Denies wheezing Exam Const: General: comfortable and no acute distress HENMT: Head: normocephalic and atraumatic Ears: hearing grossly normal bilaterally and external ears normal General nose exam: Normal external nose present and no epistaxis Face and sinus: normal facial exam and no ecchymosis Mouth: Yes moist mucous membranes Teeth and gingiva: dentition normal Eyes:
[2019-07-29 16:47] LABS: Glucose Point of Care 159 (65-105)
[2019-07-29 20:19] LABS: Glucose Point of Care 178 (65-105)
[2019-07-29 21:08] LABS: Albumin Pleural Fluid 0.4 g/dL
[2019-07-30] VITALS (24 sets, daily range): BP systolic 85–111; BP diastolic 52–62; PULSE 78–98; RESP 18–24; TEMP 36.2–36.6; O2SAT 91–98
[2019-07-30] MEDS: IPRATROPIUM BR 0.02% INH SOLN 0.5 MG/2.5 ML VIAL INHALATION ×4 (02:59→20:33)
[2019-07-30] MEDS: METOPROLOL TARTRATE 6.25 MG TABLET PO ×3 (05:32→21:30)
[2019-07-30] MEDS: METOCLOPRAMIDE HCL 10 MG TABLET PO ×2 (05:32→12:20)
[2019-07-30] MEDS: LEVOTHYROXINE SODIUM 50 MCG TABLET PO (05:32)
[2019-07-30] MEDS: FUROSEMIDE INJ 40 MG/4 ML VIAL IV PUSH ×3 (05:32→21:30)
[2019-07-30 07:20] LABS: Hematocrit 32.6 % (42.0-52.0); Hemoglobin 10.1 g/dL (14.0-18.0); Mean Corpuscular Hemoglobin 31.3 pg (26-34); Mean Corpuscular Volume 100.9 fl (80-100); Mean Platelet Volume 9.7 fl (7.4-10.4); Platelet Count Result 228 k/mm3 (150-375); Red Blood Count 3.23 M/mm3 (4.6-6.20); Red Cell Distribution Width 16.9 % (11.5-14.5); White Blood Count 11.2 K/mm3 (4.5-10.0)
[2019-07-30 07:33] LABS: Blood Urea Nitrogen 15 mg/dL (9-20); Calcium 7.6 mg/dL (8.4-10.2); Carbon Dioxide 30 mmol/L (22-30); Chloride 98 mmol/L (98-107); Estimated CRCL calculation 128 ml/min; Estimated Glomerular Filt Rate > 60; Glucose 156 mg/dL (75-110); Magnesium 1.6 mg/dL (1.6-2.3); Phosphorus 2.2 mg/dL (2.5-4.5); Potassium 3.3 mmol/L (3.4-5.0); Sodium 134 mmol/L (137-145)
[2019-07-30 07:36] LABS: Glucose Point of Care 157 (65-105)
[2019-07-30] MEDS: BUDESONIDE RESPULE NEB 0.5 MG/2 ML AMP INHALATION ×2 (07:58→20:33)
--- NOTE | 2019-07-30 10:46 | PM.PNCARD ---
Progress Note: A&P Additional Plan 63-year-old gentleman with CHF and severe left ventricular dysfunction. Today I will increase his dobutamine to 5 micrograms/kilogram per minute. Hopefully this was stimulated diuresis along with the IV furosemide. Time Spent With Patient Time with patient: 15 - 25 minutes Subjective Date/time seen: Date of service: 07/30/19 10:46 Interval history: Follow-up visit for congestive heart failure, the patient is not responding well to aggressive treatment including intravenous furosemide and low-dose IV dobutamine. He is not short of breath a understands is difficult situation quite well. Exam Const: General: comfortable and no acute distress Other: Patient seems despondent this morning HENMT: Mouth: Yes dry mucous membranes Eyes: Sclera: sclerae normal Pupils: Equal, round and reactive pupils present Neck: Neck: supple Thyroid: thyroid normal Other: Difficult exam for JVD Resp: Effort & Inspection: normal respiratory effort Other: Scant dullness at the bases Cardio: Rate: regular rate Rhythm: regular rhythm GI: Auscultation: normal bowel sounds Skin: General skin exam: normal color Extrem: General: normal to inspection Objective Data Vital Signs Vital Signs: Vital Signs - 24 hr 07/29/19 12:00 07/29/19 12:27 07/29/19 14:00 Temperature 35.8 C L Pulse Rate 93 92 95 Respiratory Rate 20 Blood Pressure 105/48 L Pulse Oximetry 95 07/29/19 14:20 07/29/19 14:26 07/29/19 14:50 Temperature Pulse Rate 97 93 96 Respiratory Rate 20 18 Blood Pressure Pulse Oximetry 07/29/19 16:00 07/29/19 16:59 07/29/19 18:00 Temperature 36.1 C L Pulse Rate 96 95 98 Respiratory Rate 22 H Blood Pressure 114/63 Pulse Oximetry 99 07/29/19 20:00 07/29/19 21:23 07/29/19 21:24 Temperature 36.2 C L Pulse Rate 94 96 96 Respiratory Rate 24 H Blood Pressure 100/59 L 96/58 L Pulse Oximetry 99 07/29/19 21:30 07/29/19 21:40 07/29/19 21:42 Temperature Pulse Rate 94 94 93 Respiratory Rate 20 18 Blood Pressure Pulse Oximetry 96 07/29/19 22:00 07/30/19 00:00 07/30/19 02:00 Temperature 36.3 C L Pulse Rate 98 92 93 Respiratory Rate 20 Blood Pressure 98/55 L Pulse Oximetry 97 07/30/19 03:02 07/30/19 03:10 07/30/19 04:00 Temperature Pulse Rate 85 86 89 Respiratory Rate 20 20 Blood Pressure Pulse Oximetry 07/30/19 05:28 07/30/19 05:32 07/30/19 06:00 Temperature 36.4 C L Pulse Rate 94 96 86 Respiratory Rate 24 H Blood Pressure 101/62 Pulse Oximetry 91 07/30/19 07:58 07/30/19 08:00 07/30/19 08:10 Temperature 36.2 C L Pulse Rate 90 87 96 Respiratory Rate 20 18 20 Blood Pressure 111/59 L Pulse Oximetry 98 96 Intake/Output Intake/Output: Intake & Output 07/27/19 07/28/19 07/29/19 07/30/19 23:59 23:59 23:59 23:59 Intake Total 1180 1410 2700.0 707.0 Output Total 1150 1400 3350 2000 Balance 30 10 -650.0 -1293.0 Meds/Results Medications: Active Medications Generic Name Dose Route Start Last Admin Trade Name Freq PRN Reason Stop Dose Admin Aspirin 81 mg 07/22/19 08:00 07/29/19 08:39 Aspirin Chewable PO 81 mg DAILY@0800 ROHIT Administration Budesonide 0.5 mg 07/22/19 08:00 07/30/19 07:58 Pulmicort Respule Neb INHALATION 0.5 mg Q12HRT ROHIT Administration Dextrose 12.5 gm 07/21/19 22:00 Dextrose 50% Syringe IV PUSH PRN PRN Hypoglycemia Protocol Furosemide 40 mg 07/27/19 22:00 07/30/19 05:32 Lasix Inj IV PUSH 40 mg Q8H ROHIT Administration Glucagon 1 mg 07/21/19 22:00 Glucagon For Inj IM PRN PRN Hypoglycemia Protocol Glucose 15 gm 07/21/19 22:00 Glutose 15 PO PRN PRN Hypoglycemia Protocol Dextrose 1,000 mls @ 100 mls/hr 07/21/19 22:00 Dextrose 5% 1,000 Ml IVPB PRN PRN Hypoglycemia Protocol Dobutamine HCl/Dextrose 250 mg in 250 mls @ 33.45 mls/hr
[2019-07-30] MEDS: SPIRONOLACTONE 25 MG TABLET PO (12:20)
[2019-07-30] MEDS: POLYSACCHARIDE IRON COMPLEX 150 MG CAPSULE PO (12:20)
[2019-07-30 12:21] LABS: Glucose Point of Care 147 (65-105)
[2019-07-30] MEDS: ASPIRIN 81 MG CHEWABLE TABLET PO (12:22)
[2019-07-30] MEDS: POTASSIUM CHLORIDE 10 MEQ TABLET.ER 20 MEQ PO (12:22)
[2019-07-30] MEDS: MAGNESIUM OXIDE 400 MG TABLET PO (12:23)
[2019-07-30] MEDS: PANTOPRAZOLE 40 MG TABLET PO (12:23)
[2019-07-30] MEDS: DOBUTamine 250 MG/D5W 250 ML 250 MG/250 ML BAG 16.7 MG IV CONT (14:36)
[2019-07-30 17:40] LABS: Glucose Point of Care 150 (65-105)
--- NOTE | 2019-07-30 18:45 | PM.IMPN ---
Progress Note: A&P Assessment and Plan (1) CHF (congestive heart failure): Qualifiers: Heart failure type: systolic Heart failure chronicity: acute on chronic Qualified Code(s): I50.23 - Acute on chronic systolic (congestive) heart failure Code(s): I50.9 - Heart failure, unspecified Status: Acute Assessment and Plan: Cardiology consulted and appreciate input. Current echocardiogram with EF 20-25%, abnormal diastolic function, basal inferior wall, mid inferior wall, and basal inferoseptal are akinetic, apex, anterior wall, anterolateral wall, anteroseptal wall, inferolateral wall, and mid inferoseptal are hypokinetic, moderate to severe mitral valve regurgitation, moderate pulmonary hypertension and moderate to severe tricuspid valve regurgitation. Venous Dopplers negative for DVT. Making slow progress. Now on IV dobutamine along with IV Lasix and oral spironolactone. Continue fluid restriction. Will continue to monitor. Telemetry reviewed on 07/29/2019 with heart rate controlled. 07/30/2019 He is not short of breath a understands is difficult situation quite well. Today patient is in lot pain his pain is not controlled is not improving his thinking about hospice care, we talked to his brother and his girlfriend his girlfriend is in agreement hospice care and patient and self would like us to consult hospice so I have placed consult for care administrative tech arrange for hospice (2) Pleural effusion: Code(s): J90 - Pleural effusion, not elsewhere classified Status: Acute Assessment and Plan: CT chest with moderate to large right and moderate left pleural effusions. Ultrasound-guided thoracentesis completed on 07/26/2019 with removal of 1000 mL clear fluid. PH of pleural fluid is normal. Repeat chest x-ray on 07/28/2019 with stable airspace opacities of the mid and lower lung zones and moderate-sized pleural effusions also stable. Continue IV Lasix and oral spironolactone as noted above. Will monitor. (3) Sepsis: Qualifiers: Sepsis type: sepsis due to unspecified organism Sepsis acute organ dysfunction status: unspecified Qualified Code(s): A41.9 - Sepsis, unspecified organism Code(s): A41.9 - Sepsis, unspecified organism Status: Acute Assessment and Plan: Criteria met on admission. Result of pneumonia, UTI. Blood cultures final and negative. MRSA nasal culture positive in has completed treatment with Bactroban. Has been on IV vancomycin and cefepime since 07/23/2019. Will plan to discontinue IV antibiotics after today. Continue to monitor. (4) Pneumonia: Qualifiers: Laterality: unspecified laterality Lung location: unspecified part of lung Pneumonia type: due to unspecified organism Qualified Code(s): J18.9 - Pneumonia, unspecified organism Code(s): J18.9 - Pneumonia, unspecified organism Status: Acute Assessment and Plan: CT chest with patchy left-sided pneumonia or edema. Plan to discontinue IV cefepime and vancomycin after doses today. Remains on 2 L of oxygen. Continue nebulizer treatments including Pulmicort. Will continue to monitor. (5) Elevated troponin: Code(s): R79.89 - Other specified abnormal findings of blood chemistry Status: Acute Assessment and Plan: Troponin peaked at 0.10. EKG showing borderline ST T wave changes in the lateral leads. Appreciate input from cardiology. Remains on metoprolol and aspirin. Continue to monitor. (6) UTI (urinary tract infection): Qualifiers: Urinary tract infection type: site unspecified Hematuria presence: without hematuria Qualified Code(s): N39.0 - Urinary tract infection, site not specified Code(s): N39.0 - Urinary tract infection, site not specified Status: Acute Assessment and Plan: UA not consistent with UTI but urine culture is now growing VRE. Continue IV vancomycin through today then discontinue as not
[2019-07-30 21:00] LABS: Glucose Point of Care 159 (65-105)
[2019-07-31] VITALS (27 sets, daily range): BP systolic 93–103; BP diastolic 50–63; PULSE 69–99; RESP 18–20; TEMP 36.1–36.6; O2SAT 93–97
[2019-07-31] MEDS: IPRATROPIUM BR 0.02% INH SOLN 0.5 MG/2.5 ML VIAL INHALATION ×4 (04:06→22:06)
[2019-07-31 05:30] LABS: Blood Urea Nitrogen 15 mg/dL (9-20); Calcium 7.4 mg/dL (8.4-10.2); Carbon Dioxide 31 mmol/L (22-30); Chloride 93 mmol/L (98-107); Estimated CRCL calculation 128 ml/min; Estimated Glomerular Filt Rate > 60; Glucose 109 mg/dL (75-110); Magnesium 1.6 mg/dL (1.6-2.3); Phosphorus 2.3 mg/dL (2.5-4.5); Potassium 3.3 mmol/L (3.4-5.0); Sodium 133 mmol/L (137-145)
[2019-07-31] MEDS: FUROSEMIDE INJ 40 MG/4 ML VIAL IV PUSH ×3 (05:52→22:08)
[2019-07-31] MEDS: DOBUTamine 250 MG/D5W 250 ML 250 MG/250 ML BAG 16.7 MG IV CONT ×2 (05:52→16:07)
[2019-07-31 08:49] LABS: Glucose Point of Care 102 (65-105)
[2019-07-31] MEDS: BUDESONIDE RESPULE NEB 0.5 MG/2 ML AMP INHALATION ×2 (09:07→22:06)
--- NOTE | 2019-07-31 10:25 | PM.IMPN ---
Progress Note: A&P Assessment and Plan (1) CHF (congestive heart failure): Qualifiers: Heart failure type: systolic Heart failure chronicity: acute on chronic Qualified Code(s): I50.23 - Acute on chronic systolic (congestive) heart failure Code(s): I50.9 - Heart failure, unspecified Status: Acute Assessment and Plan: Cardiology consulted and appreciate input. Current echocardiogram with EF 20-25%, abnormal diastolic function, basal inferior wall, mid inferior wall, and basal inferoseptal are akinetic, apex, anterior wall, anterolateral wall, anteroseptal wall, inferolateral wall, and mid inferoseptal are hypokinetic, moderate to severe mitral valve regurgitation, moderate pulmonary hypertension and moderate to severe tricuspid valve regurgitation. Venous Dopplers negative for DVT. Remains on IV dobutamine along with IV Lasix and oral spironolactone. Remains on fluid restriction. Not making any significant progress. Had discussion with patient regarding code status as well as possible comfort care if he does not wish to continue aggressive care. Patient will consider and let us know his wishes. (2) Hypokalemia: Code(s): E87.6 - Hypokalemia Status: Acute Assessment and Plan: Potassium 3.3 this morning but patient has not been taking his medication per nursing. Dose was increased for today if he will take medication. Will continue to monitor. (3) Pleural effusion: Code(s): J90 - Pleural effusion, not elsewhere classified Status: Acute Assessment and Plan: CT chest with moderate to large right and moderate left pleural effusions. Ultrasound-guided thoracentesis completed on 07/26/2019 with removal of 1000 mL clear fluid. PH of pleural fluid is normal. Repeat chest x-ray on 07/28/2019 with stable airspace opacities of the mid and lower lung zones and moderate-sized pleural effusions also stable. Remains on IV Lasix and oral spironolactone as noted above. Will monitor. (4) Sepsis: Qualifiers: Sepsis type: sepsis due to unspecified organism Sepsis acute organ dysfunction status: unspecified Qualified Code(s): A41.9 - Sepsis, unspecified organism Code(s): A41.9 - Sepsis, unspecified organism Status: Acute Assessment and Plan: Criteria met on admission. Result of pneumonia, UTI. Blood cultures final and negative. MRSA nasal culture positive in has completed treatment with Bactroban. Has completed course of IV vancomycin and cefepime. (5) Pneumonia: Qualifiers: Laterality: unspecified laterality Lung location: unspecified part of lung Pneumonia type: due to unspecified organism Qualified Code(s): J18.9 - Pneumonia, unspecified organism Code(s): J18.9 - Pneumonia, unspecified organism Status: Acute Assessment and Plan: CT chest with patchy left-sided pneumonia or edema. Has completed course of IV cefepime and vancomycin after doses today. Remains on 2 L of oxygen. Continue nebulizer treatments including Pulmicort. Will continue to monitor. (6) Elevated troponin: Code(s): R79.89 - Other specified abnormal findings of blood chemistry Status: Acute Assessment and Plan: Troponin peaked at 0.10. EKG showing borderline ST T wave changes in the lateral leads. Appreciate input from cardiology. Remains on metoprolol and aspirin. Continue to monitor. Telemetry reviewed on 07/31/2019 with rate controlled. (7) UTI (urinary tract infection): Qualifiers: Urinary tract infection type: site unspecified Hematuria presence: without hematuria Qualified Code(s): N39.0 - Urinary tract infection, site not specified Code(s): N39.0 - Urinary tract infection, site not specified Status: Acute Assessment and Plan: UA not consistent with UTI but urine culture is now growing VRE. Continue IV vancomycin through today then discontinue as noted above. (8) Type II diabetes
[2019-07-31] MEDS: METOCLOPRAMIDE HCL 10 MG TABLET PO ×2 (11:21→18:07)
[2019-07-31] MEDS: POLYSACCHARIDE IRON COMPLEX 150 MG CAPSULE PO ×2 (11:22→18:07)
[2019-07-31] MEDS: PANTOPRAZOLE 40 MG TABLET PO (11:22)
[2019-07-31] MEDS: POTASSIUM CHLORIDE 10 MEQ TABLET.ER 20 MEQ PO ×2 (11:22→18:06)
[2019-07-31] MEDS: ASPIRIN 81 MG CHEWABLE TABLET PO (11:23)
[2019-07-31] MEDS: MAGNESIUM OXIDE 400 MG TABLET PO (11:23)
[2019-07-31] MEDS: SPIRONOLACTONE 25 MG TABLET PO (11:23)
[2019-07-31 12:22] LABS: Glucose Point of Care 133 (65-105)
--- NOTE | 2019-07-31 13:15 | PM.PNCARD ---
Progress Note: A&P Additional Plan 63-year-old gentleman with advanced ischemic cardiomyopathy. Congestive heart failure patient is being treated with aggressive medical therapy and now with IV dobutamine with very slow clinical response. Despite the fact that I ordered increase in the dobutamine to 5 micrograms/kilogram per minute yesterday that was not carried out until this morning. He now is on the increased dosage. Long discussion with the patient's brother who was asking details about the case including need to consider follow-up angiography. Patient does not seem to understand that a follow-up angiogram is not indicated at this time. Time Spent With Patient Time with patient: 15 - 25 minutes Subjective Date/time seen: Date of service: 07/31/19 13:15 Interval history: Follow-up visit for congestive heart failure, the patient is not responding well to aggressive treatment including intravenous furosemide and low-dose IV dobutamine. Patient states that his breathing is somewhat better today but lower extremity edema is not. His principal complaint today is significant pain in the region of his buttocks which he states is due to prolonged bed rest. His family/brother are in the room Petterchak indicates that he has had this pain for a number of months. Exam Const: General: no acute distress and uncomfortable Other: Chronically ill-appearing gentleman seated in the bed with his feet on the floor and no distress but looks weak overall HENMT: Mouth: Yes moist mucous membranes Eyes: Sclera: sclerae normal Pupils: Equal, round and reactive pupils present Neck: Neck: supple and no JVD Thyroid: thyroid normal Resp: Effort & Inspection: normal respiratory effort Other: Scant rales at the bases bilateral Cardio: Rate: regular rate Rhythm: regular rhythm GI: Auscultation: normal bowel sounds Skin: General skin exam: normal color Neuro: Cognition (Neuro): normal cognition Extrem: Other: Persistent moderate lower extremity edema appears essentially unchanged to be Objective Data Vital Signs Vital Signs: Vital Signs - 24 hr 07/30/19 14:00 07/30/19 14:39 07/30/19 14:42 Temperature Pulse Rate 93 92 87 Respiratory Rate 20 Blood Pressure Pulse Oximetry 07/30/19 14:50 07/30/19 16:00 07/30/19 18:00 Temperature 36.6 C Pulse Rate 80 89 96 Respiratory Rate 20 18 Blood Pressure 85/55 L Pulse Oximetry 96 07/30/19 19:43 02/29/20 20:00 07/30/19 20:35 Temperature 36.3 C L Pulse Rate 78 88 79 Respiratory Rate 20 20 Blood Pressure 100/58 L Pulse Oximetry 95 07/30/19 20:43 07/30/19 21:30 07/31/19 00:00 Temperature Pulse Rate 84 98 86 Respiratory Rate 20 Blood Pressure 99/59 L Pulse Oximetry 07/31/19 00:10 07/31/19 01:04 07/31/19 02:00 Temperature 36.1 C L Pulse Rate 92 95 87 Respiratory Rate 20 Blood Pressure 102/58 L Pulse Oximetry 97 07/31/19 04:00 07/31/19 04:06 07/31/19 04:14 Temperature Pulse Rate 93 76 72 Respiratory Rate 18 18 Blood Pressure Pulse Oximetry 07/31/19 05:44 07/31/19 06:00 07/31/19 08:00 Temperature 36.4 C 36.3 C L Pulse Rate 88 90 89 Respiratory Rate 18 20 Blood Pressure 99/59 L 102/62 Pulse Oximetry 97 97 07/31/19 09:00 07/31/19 09:05 07/31/19 09:15 Temperature Pulse Rate 75 78 Respiratory Rate 18 18 Blood Pressure Pulse Oximetry 95 07/31/19 12:00 Temperature 36.4 C L Pulse Rate 96 Respiratory Rate 20 Blood Pressure 93/61 L Pulse Oximetry 93 Intake/Output Intake/Output: Intake & Output 07/28/19 07/29/19 07/30/19 07/31/19 23:59 23:59 23:59 23:59 Intake Total 1410 2700.0 1380.0 500 Output Total 1400 3350 3650 1000 Balance 10 -650.0 -2270.0 -500 Meds/Results Medications: Active Medications Generic Name Dose Route Start Last Admin Trade Name Freq PRN Reason Stop Dose Admin Hydrocodone Bitart/Acetaminophen 0.5 tab 07/31/19 12:38 [place] 5-325 Mg PO Q4H
[2019-07-31] MEDS: METOPROLOL TARTRATE 6.25 MG TABLET PO ×2 (15:00→22:08)
[2019-07-31 16:28] LABS: Glucose Point of Care 151 (65-105)
[2019-07-31 20:25] LABS: Glucose Point of Care 157 (65-105)
[2019-08-01] VITALS (25 sets, daily range): BP systolic 90–115; BP diastolic 56–67; PULSE 77–103; RESP 20–24; TEMP 36–36.6; O2SAT 92–98
[2019-08-01] MEDS: DOBUTamine 250 MG/D5W 250 ML 250 MG/250 ML BAG 33.5 MG IV CONT ×3 (00:23→18:15)
[2019-08-01] MEDS: IPRATROPIUM BR 0.02% INH SOLN 0.5 MG/2.5 ML VIAL INHALATION ×4 (03:39→22:04)
[2019-08-01] MEDS: LEVOTHYROXINE SODIUM 50 MCG TABLET PO (06:23)
[2019-08-01] MEDS: METOCLOPRAMIDE HCL 10 MG TABLET PO ×2 (06:23→18:18)
[2019-08-01 06:45] LABS: Blood Urea Nitrogen 15 mg/dL (9-20); Calcium 8.1 mg/dL (8.4-10.2); Carbon Dioxide 32 mmol/L (22-30); Chloride 95 mmol/L (98-107); Estimated CRCL calculation 128 ml/min; Estimated Glomerular Filt Rate > 60; Glucose 117 mg/dL (75-110); Magnesium 1.7 mg/dL (1.6-2.3); Potassium 3.7 mmol/L (3.4-5.0); Sodium 131 mmol/L (137-145)
[2019-08-01 08:26] LABS: Glucose Point of Care 125 (65-105)
[2019-08-01] MEDS: BUDESONIDE RESPULE NEB 0.5 MG/2 ML AMP INHALATION ×2 (09:14→22:04)
[2019-08-01] MEDS: POTASSIUM CHLORIDE 10 MEQ TABLET.ER 20 MEQ PO ×2 (09:55→18:18)
[2019-08-01] MEDS: PANTOPRAZOLE 40 MG TABLET PO (09:55)
[2019-08-01] MEDS: MAGNESIUM OXIDE 400 MG TABLET PO (09:56)
[2019-08-01] MEDS: ASPIRIN 81 MG CHEWABLE TABLET PO (09:56)
[2019-08-01] MEDS: POLYSACCHARIDE IRON COMPLEX 150 MG CAPSULE PO ×2 (09:56→18:17)
[2019-08-01] MEDS: SPIRONOLACTONE 25 MG TABLET PO (09:56)
--- NOTE | 2019-08-01 10:45 | PM.PNCARD ---
Progress Note: A&P Assessment and Plan (1) CHF (congestive heart failure): Qualifiers: Heart failure chronicity: acute on chronic Heart failure type: systolic Qualified Code(s): I50.23 - Acute on chronic systolic (congestive) heart failure Code(s): I50.9 - Heart failure, unspecified Status: Acute Assessment and Plan: EF 20-25%. Dobutamine increased to 5 mcg per kg per minute yesterday. No urine output documented for the last 12 hour shift. By assessment is not diuresing well. Legs look much tighter than when last seen on Thursday. Diuretics are being limited by hypotension. Continue furosemide for q.8 hours if blood pressure tolerates. (2) Acute and chronic respiratory failure: Code(s): J96.20 - Acute and chronic respiratory failure, unspecified whether with hypoxia or hypercapnia Status: Acute Assessment and Plan: Management as per primary team. Supplemental oxygen. (3) Pleural effusion: Code(s): J90 - Pleural effusion, not elsewhere classified Status: Acute Assessment and Plan: Thoracentesis 07/26/2019: 1000 cc from right (4) Pneumonia: Qualifiers: Laterality: unspecified laterality Lung location: unspecified part of lung Pneumonia type: due to unspecified organism Qualified Code(s): J18.9 - Pneumonia, unspecified organism Code(s): J18.9 - Pneumonia, unspecified organism Status: Acute Assessment and Plan: Antibiotics as per primary team Additional Plan There have been long discussions over the weekend regarding his code status. At this time he still wants to be a full code even the he states that he is tired and does not want to fight any longer. Plan discussed Dr. Aaron Ledesma 08/01/2019 Subjective Date/time seen: 08/01/19 10:45 Interval history: Follow-up for: congestive heart failure Date of service: 08/01/2019 Subjective: Hurts all over. Denied specific chest discomfort however. Breathing is okay at the moment. No lightheadedness at this time. Feels cold. Has not yet taken his medications from this morning. Wants to supplement his potassium with orange juice only. Review of Systems Constitutional: Constitutional: Reports fatigue and Reports weakness Eyes: Eyes: Denies blurry vision ENT: Reports Normal hearing present Cardiovascular: Cardiovascular: Denies chest pain, Reports pedal edema (Not improving), Reports leg edema (Not improving), Denies dyspnea and Reports dyspnea on exertion Respiratory: Respiratory: Denies cough, Reports dyspnea on exertion and Denies wheezing Gastrointestinal: Gastrointestinal: Reports bloating, Denies nausea and Denies vomiting Genitourinary: Genitourinary: Denies hematuria Musculoskeletal: Musculoskeletal: Reports arthralgias Integumentary/Breasts: Skin/Breast: Denies wounds Neurologic: Reports Normal hearing present and Reports weakness Psychiatric: Psychiatric: Denies anxiety Endocrine: Endocrine: Reports fatigue Hematologic/Lymphatic: Hematologic/Lymphatic: Reports easy bruising Allergic/Immunologic: Allergic/Immunologic: Denies wheezing Exam Const: General: comfortable and no acute distress Orientation/consciousness: patient oriented x3 HENMT: Head: normocephalic and atraumatic Ears: hearing grossly normal bilaterally and external ears normal General nose exam: Normal external nose present and no epistaxis Face and sinus: normal facial exam and no ecchymosis Mouth: Yes moist mucous membranes and Yes dry mucous membranes Eyes: Conjunctivae: conjunctivae normal Sclera: sclerae normal Pupils: Equal, round and reactive pupils present EOM: EOMs intact bilaterally Neck: Neck: normal visual inspection, supple and no JVD Other: Difficult exam for JVD Resp: Effort & Inspection: normal respiratory effort and able to speak in comple
--- NOTE | 2019-08-01 10:55 | PM.IMPN ---
Progress Note: A&P Assessment and Plan (1) CHF (congestive heart failure): Qualifiers: Heart failure chronicity: acute on chronic Heart failure type: systolic Qualified Code(s): I50.23 - Acute on chronic systolic (congestive) heart failure Code(s): I50.9 - Heart failure, unspecified Status: Acute Assessment and Plan: Cardiology consulted and appreciate input. Current echocardiogram with EF 20-25%, abnormal diastolic function, basal inferior wall, mid inferior wall, and basal inferoseptal are akinetic, apex, anterior wall, anterolateral wall, anteroseptal wall, inferolateral wall, and mid inferoseptal are hypokinetic, moderate to severe mitral valve regurgitation, moderate pulmonary hypertension and moderate to severe tricuspid valve regurgitation. Venous Dopplers negative for DVT. Now on IV dobutamine with dosage increased over the weekend. Also on IV Lasix and oral spironolactone. Not making much progress. Does also have fluid restriction. Had long discussion with brother who is POA yesterday. Patient very indecisive about his own care. Patient tells me today he wishes to remain full code. Will continue with present treatment for now. (2) Hypokalemia: Code(s): E87.6 - Hypokalemia Status: Acute Assessment and Plan: Potassium 3.7 today. Will continue scheduled replacement. Monitor levels. Adjust replacement as needed. (3) Pleural effusion: Code(s): J90 - Pleural effusion, not elsewhere classified Status: Acute Assessment and Plan: CT chest with moderate to large right and moderate left pleural effusions. Ultrasound-guided thoracentesis completed on 07/26/2019 with removal of 1000 mL clear fluid. PH of pleural fluid is normal. Repeat chest x-ray on 07/28/2019 with stable airspace opacities of the mid and lower lung zones and moderate-sized pleural effusions also stable. Remains on IV Lasix and oral spironolactone as noted above. Will monitor. (4) Sepsis: Qualifiers: Sepsis acute organ dysfunction status: unspecified Sepsis type: sepsis due to unspecified organism Qualified Code(s): A41.9 - Sepsis, unspecified organism Code(s): A41.9 - Sepsis, unspecified organism Status: Resolved Assessment and Plan: Criteria met on admission. Result of pneumonia, UTI. Blood cultures final and negative. MRSA nasal culture positive in has completed treatment with Bactroban. Has completed course of IV vancomycin and cefepime. (5) Pneumonia: Qualifiers: Laterality: unspecified laterality Lung location: unspecified part of lung Pneumonia type: due to unspecified organism Qualified Code(s): J18.9 - Pneumonia, unspecified organism Code(s): J18.9 - Pneumonia, unspecified organism Status: Resolved Assessment and Plan: CT chest with patchy left-sided pneumonia or edema. Has completed course of IV cefepime and vancomycin. Remains on 2 L of oxygen. Continue nebulizer treatments including Pulmicort. Will continue to monitor. (6) Elevated troponin: Code(s): R79.89 - Other specified abnormal findings of blood chemistry Status: Acute Assessment and Plan: Troponin peaked at 0.10. EKG showing borderline ST T wave changes in the lateral leads. Appreciate input from cardiology. Remains on metoprolol and aspirin. Continue to monitor. Telemetry reviewed on 08/01/2019 with heart rate controlled. (7) UTI (urinary tract infection): Qualifiers: Hematuria presence: without hematuria Urinary tract infection type: site unspecified Qualified Code(s): N39.0 - Urinary tract infection, site not specified Code(s): N39.0 - Urinary tract infection, site not specified Status: Resolved Assessment and Plan: UA not consistent with UTI but urine culture grew VRE. Has now completed treatment with IV vancomycin. (8) Type II diabetes mellitus: Qualifiers: Diabetes mellit
[2019-08-01 18:36] LABS: Glucose Point of Care 132 (65-105)
[2019-08-01 18:36] LABS: Glucose Point of Care 120 (65-105)
[2019-08-01] MEDS: FUROSEMIDE INJ 40 MG/4 ML VIAL IV PUSH (20:37)
[2019-08-01] MEDS: METOPROLOL TARTRATE 6.25 MG TABLET PO (20:37)
[2019-08-01 20:49] LABS: Glucose Point of Care 126 (65-105)
[2019-08-02] VITALS (20 sets, daily range): BP systolic 87–96; BP diastolic 51–61; PULSE 85–103; RESP 15–22; TEMP 36.2–36.6; O2SAT 92–99
[2019-08-02] MEDS: DOBUTamine 250 MG/D5W 250 ML 250 MG/250 ML BAG 33.5 MG IV CONT ×3 (01:25→18:41)
[2019-08-02] MEDS: IPRATROPIUM BR 0.02% INH SOLN 0.5 MG/2.5 ML VIAL INHALATION ×4 (02:20→22:11)
[2019-08-02] MEDS: METOPROLOL TARTRATE 6.25 MG TABLET PO (06:26)
[2019-08-02] MEDS: LEVOTHYROXINE SODIUM 50 MCG TABLET PO (06:26)
[2019-08-02] MEDS: FUROSEMIDE INJ 40 MG/4 ML VIAL IV PUSH ×3 (06:26→23:09)
[2019-08-02] MEDS: METOCLOPRAMIDE HCL 10 MG TABLET PO ×3 (06:26→16:53)
[2019-08-02 07:51] LABS: Glucose Point of Care 98 (65-105)
[2019-08-02 08:36] LABS: Blood Urea Nitrogen 15 mg/dL (9-20); Calcium 7.5 mg/dL (8.4-10.2); Carbon Dioxide 32 mmol/L (22-30); Chloride 91 mmol/L (98-107); Estimated CRCL calculation 147 ml/min; Estimated Glomerular Filt Rate > 60; Glucose 104 mg/dL (75-110); Magnesium 1.7 mg/dL (1.6-2.3); Potassium 3.7 mmol/L (3.4-5.0); Sodium 132 mmol/L (137-145)
[2019-08-02] MEDS: BUDESONIDE RESPULE NEB 0.5 MG/2 ML AMP INHALATION ×2 (08:41→22:10)
[2019-08-02] MEDS: POTASSIUM CHLORIDE 10 MEQ TABLET.ER 20 MEQ PO ×3 (10:02→18:42)
[2019-08-02] MEDS: ASPIRIN 81 MG CHEWABLE TABLET PO (10:02)
[2019-08-02] MEDS: PANTOPRAZOLE 40 MG TABLET PO (10:03)
[2019-08-02] MEDS: MAGNESIUM OXIDE 400 MG TABLET PO (10:03)
[2019-08-02] MEDS: SPIRONOLACTONE 25 MG TABLET PO (10:04)
[2019-08-02] MEDS: POLYSACCHARIDE IRON COMPLEX 150 MG CAPSULE PO ×2 (10:04→16:54)
[2019-08-02 12:03] LABS: Glucose Point of Care 105 (65-105)
--- NOTE | 2019-08-02 13:44 | PCDIET ---
Nutrition Follow-Up Complete: Inadequate oral intake related to chewing difficulty as evidenced by pt's statement and average meal intake of 48%. Pt will consume greater than 75% of all meals. Goal:Progressing towards goal. Continue with current goal. Pt current nutrition is [employer]. Nutrition recommendation: Agree with [employer] but recommend 2gm Na in addition due to CHF and EF of 25% Last recorded weight is 118.7 kg (up from assessed wt of 111.5kg) Labs Reviewed: 08/01 Na 132, Cr .60, Ca 7.5 Meds Noted: Metformin on hold...Mag Oxide, Lasix, Synthroid, Reglan, Lopressor, Protonix, Niferex Additional Notes: Pt on a DBCC diet and eating fairly well, 65% of all meals. Wt is up from assessment wt, possibly due to fluid. Lasix provided. Recommend adding a 2gm Na diet due to CHF. Pt would also benefit from CoQ10 supplementation. Glucose currently well controlled. We will continue to monitor for adequate intake every five days.
--- NOTE | 2019-08-02 15:29 | PM.PNCARD ---
Progress Note: A&P Assessment and Plan (1) CHF (congestive heart failure): Qualifiers: Heart failure chronicity: acute on chronic Heart failure type: systolic Qualified Code(s): I50.23 - Acute on chronic systolic (congestive) heart failure Code(s): I50.9 - Heart failure, unspecified Status: Acute Assessment and Plan: EF 20-25%. Dobutamine continues at 5 mcg per kg per minute. Increased on Thursday. Intake and output is not accurate. By assessment is not diuresing well. Legs still look very tight. Diuretics limited by hypotension. Will stop Metoprolol for now to see if this will improve his blood pressure and perhaps some renal perfusion. Continue furosemide 40 mg q.8 hours if blood pressure tolerates. (2) Acute and chronic respiratory failure: Code(s): J96.20 - Acute and chronic respiratory failure, unspecified whether with hypoxia or hypercapnia Status: Acute Assessment and Plan: Management as per primary team. Supplemental oxygen. (3) Pleural effusion: Code(s): J90 - Pleural effusion, not elsewhere classified Status: Acute Assessment and Plan: Thoracentesis 07/26/2019: 1000 cc from right (4) Pneumonia: Qualifiers: Laterality: unspecified laterality Lung location: unspecified part of lung Pneumonia type: due to unspecified organism Qualified Code(s): J18.9 - Pneumonia, unspecified organism Code(s): J18.9 - Pneumonia, unspecified organism Status: Resolved Assessment and Plan: Antibiotics as per primary team Additional Plan Plan discussed with Dr. Navas 1530 08/02/2019 Subjective Date/time seen: 08/02/19 15:29 Interval history: Follow-up for: congestive heart failure Date of service: 08/02/2019 Subjective: New mattress isn't making much difference in his pain. Denies shortness of breath at rest or lightheadedness. Lower extremity edema no better. Some shortness of breath when exerting to get up to the chair. Review of Systems Constitutional: Constitutional: Reports fatigue and Reports weakness Eyes: Eyes: Denies blurry vision ENT: Reports Normal hearing present Cardiovascular: Cardiovascular: Denies chest pain, Reports pedal edema (Not improving), Reports leg edema (Not improving) and Reports dyspnea on exertion Respiratory: Respiratory: Denies cough, Reports dyspnea on exertion and Denies wheezing Gastrointestinal: Gastrointestinal: Reports bloating, Reports constipation, Denies nausea and Denies vomiting Genitourinary: Genitourinary: Denies hematuria Musculoskeletal: Musculoskeletal: Reports arthralgias Integumentary/Breasts: Skin/Breast: Denies wounds Neurologic: Reports Normal hearing present and Reports weakness Psychiatric: Psychiatric: Denies anxiety Endocrine: Endocrine: Reports fatigue Hematologic/Lymphatic: Hematologic/Lymphatic: Reports easy bruising Allergic/Immunologic: Allergic/Immunologic: Denies wheezing Exam Const: General: cooperative, no acute distress and uncomfortable Nutritional Appearance: edematous Orientation/consciousness: patient oriented x3 HENMT: Head: normocephalic and atraumatic Ears: hearing grossly normal bilaterally and external ears normal General nose exam: Normal external nose present and no epistaxis Face and sinus: normal facial exam and no ecchymosis Mouth: Yes moist mucous membranes Eyes: Conjunctivae: conjunctivae normal Sclera: sclerae normal Neck: Neck: normal visual inspection, supple and no JVD Other: Difficult exam for JVD Resp: Effort & Inspection: normal respiratory effort and able to speak in complete sentences Auscultation: diminished lung sounds diffuse Other: Scant rales at the bases bilateral Cardio: Rate: regular rate Rhythm: regular rhythm Heart sounds: S1 normal heart sound present, S2 normal heart so
[2019-08-02 17:39] LABS: Glucose Point of Care 92 (65-105)
--- NOTE | 2019-08-02 18:23 | PM.IMPN ---
Progress Note: A&P Assessment and Plan (1) CHF (congestive heart failure): Qualifiers: Heart failure chronicity: acute on chronic Heart failure type: systolic Qualified Code(s): I50.23 - Acute on chronic systolic (congestive) heart failure Code(s): I50.9 - Heart failure, unspecified Status: Acute Assessment and Plan: Current echo with EF 20-25%, abnormal diastolic function, basal inferior wall, mid inferior wall, and basal inferoseptal are akinetic, apex, anterior wall, anterolateral wall, anteroseptal wall, inferolateral wall, and mid inferoseptal are hypokinetic, moderate to severe mitral valve regurgitation, moderate pulmonary hypertension and moderate to severe tricuspid valve regurgitation. Venous Dopplers negative for DVT. Now on IV dobutamine. Cardiology consulted and appreciate input. Also on IV Lasix and oral spironolactone. Not making much progress. Fluid balance about even. Will continue with present treatment for now. (2) Hypokalemia: Code(s): E87.6 - Hypokalemia Status: Acute Assessment and Plan: Potassium 3.7 again today. Will continue scheduled replacement. Monitor levels. Adjust replacement as needed. (3) Pleural effusion: Code(s): J90 - Pleural effusion, not elsewhere classified Status: Acute Assessment and Plan: CTA chest 07/21/19 with moderate to large right and moderate left pleural effusions. Ultrasound-guided thoracentesis completed on 07/26/2019 with removal of 1000 mL clear fluid. PH of pleural fluid is normal. Repeat chest x-ray on 07/28/2019 with stable airspace opacities of the mid and lower lung zones and moderate-sized pleural effusions also stable. Remains on IV Lasix and oral spironolactone as noted above. Will monitor. (4) Sepsis: Qualifiers: Sepsis acute organ dysfunction status: unspecified Sepsis type: sepsis due to unspecified organism Qualified Code(s): A41.9 - Sepsis, unspecified organism Code(s): A41.9 - Sepsis, unspecified organism Status: Resolved Assessment and Plan: Criteria met on admission. Result of pneumonia. Blood cultures final and negative. MRSA nasal culture positive and has completed treatment with Bactroban. Has completed course of IV vancomycin and cefepime. Continue to monitor. (5) Pneumonia: Qualifiers: Laterality: unspecified laterality Lung location: unspecified part of lung Pneumonia type: due to unspecified organism Qualified Code(s): J18.9 - Pneumonia, unspecified organism Code(s): J18.9 - Pneumonia, unspecified organism Status: Resolved Assessment and Plan: CT chest with patchy left-sided pneumonia or edema. Has completed course of IV cefepime and vancomycin. Remains on 2 L of oxygen. Afebrile. Continue nebulizer treatments including Pulmicort. Will continue to monitor. Wean O2 as toelrated. (6) Elevated troponin: Code(s): R79.89 - Other specified abnormal findings of blood chemistry Status: Acute Assessment and Plan: Troponin peaked at 0.10. EKG showing borderline ST T wave changes in the lateral leads. Appreciate input from cardiology. Remains on aspirin. Metoprolol stopped. Continue to monitor. (7) UTI (urinary tract infection): Qualifiers: Hematuria presence: without hematuria Urinary tract infection type: site unspecified Qualified Code(s): N39.0 - Urinary tract infection, site not specified Code(s): N39.0 - Urinary tract infection, site not specified Status: Resolved Assessment and Plan: UA not consistent with UTI but urine culture grew VRE. He completed treatment with IV vancomycin although resistant. Most likely contaminant. Doubt he had UTI. 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
[2019-08-02 20:54] LABS: Glucose Point of Care 113 (65-105)
[2019-08-03] VITALS (21 sets, daily range): BP systolic 93–104; BP diastolic 54–69; PULSE 62–107; RESP 16–24; TEMP 36.4–36.7; O2SAT 96–100
[2019-08-03] MEDS: DOBUTamine 250 MG/D5W 250 ML 250 MG/250 ML BAG 33.5 MG IV CONT ×2 (02:47→09:54)
[2019-08-03] MEDS: FUROSEMIDE INJ 40 MG/4 ML VIAL IV PUSH ×3 (05:41→21:15)
[2019-08-03] MEDS: METOCLOPRAMIDE HCL 10 MG TABLET PO ×3 (05:41→17:57)
[2019-08-03] MEDS: LEVOTHYROXINE SODIUM 50 MCG TABLET PO (05:41)
[2019-08-03 08:07] LABS: Basophils Absolute Auto 0.1 K/mm3 (0.0-0.1); Basophils Percent Auto 0.6 % (0.2-1.2); Eosinophils Percent Auto 0.1 % (0-4.4); Hemoglobin 10.1 g/dL (14.0-18.0); Immature Granulocyte Absolute 0.12 K/mm3 (0.00-0.031); Immature Granulocyte Percent A 0.9 % (0-0.5); Lymphocytes Absolute Auto 4.31 K/mm3 (0.9-3.2); Lymphocytes Percent Auto 31.4 % (18.3-44.2); Mean Corpuscular HGB Conc 31.6 g/dl (32-36); Mean Corpuscular Hemoglobin 31.2 pg (26-34); Mean Corpuscular Volume 98.8 fl (80-100); Mean Platelet Volume 9.3 fl (7.4-10.4); Monocytes Absolute Auto 0.6 K/mm3 (0.1-0.6); Monocytes Percent Auto 4.5 % (2.6-8.5); Neutrophils Absolute Auto 8.6 K/mm3 (1.3-6.7); Neutrophils Percent Auto 62.5 % (45.5-73.1); Platelet Count Result 294 k/mm3 (150-375); Red Blood Count 3.24 M/mm3 (4.6-6.20); Red Cell Distribution Width 16.4 % (11.5-14.5); White Blood Count 13.7 K/mm3 (4.5-10.0)
[2019-08-03 08:10] LABS: Alanine Aminotransferase 16 U/L (4-50); Alkaline Phosphatase 131 U/L (38-126); Aspartate Amino Transferase 20 U/L (17-59); Bilirubin,Total 0.6 mg/dL (0.2-1.3); Blood Urea Nitrogen 15 mg/dL (9-20); Calcium 8.1 mg/dL (8.4-10.2); Carbon Dioxide 33 mmol/L (22-30); Chloride 94 mmol/L (98-107); Estimated CRCL calculation 127 ml/min; Estimated Glomerular Filt Rate > 60; Glucose 98 mg/dL (75-110); Magnesium 1.8 mg/dL (1.6-2.3); Phosphorus 3.1 mg/dL (2.5-4.5); Potassium 3.8 mmol/L (3.4-5.0); Sodium 131 mmol/L (137-145)
[2019-08-03] MEDS: BUDESONIDE RESPULE NEB 0.5 MG/2 ML AMP INHALATION ×2 (09:31→21:59)
[2019-08-03] MEDS: IPRATROPIUM BR 0.02% INH SOLN 0.5 MG/2.5 ML VIAL INHALATION ×3 (09:31→21:59)
[2019-08-03] MEDS: PANTOPRAZOLE 40 MG TABLET PO (09:54)
[2019-08-03] MEDS: POLYSACCHARIDE IRON COMPLEX 150 MG CAPSULE PO ×2 (09:54→17:57)
[2019-08-03] MEDS: ASPIRIN 81 MG CHEWABLE TABLET PO (09:55)
[2019-08-03] MEDS: SPIRONOLACTONE 25 MG TABLET PO (09:55)
[2019-08-03] MEDS: MAGNESIUM OXIDE 400 MG TABLET PO (09:55)
[2019-08-03] MEDS: POTASSIUM CHLORIDE 10 MEQ TABLET.ER 20 MEQ PO ×3 (09:55→17:57)
--- NOTE | 2019-08-03 12:52 | PM.PNCARD ---
Progress Note: A&P Additional Plan I am going to discontinue his dobutamine today since there has been no evidence of clinical benefit after infusing at for 5-6 days I am going to try a very low dose of Entresto starting this evening S beta-valdemar has been stopped and hopefully there will be some hemodynamic tolerance of this The patient and his brother will discuss the concept of aggressive hemodynamic support as I mentioned above and determine if they are interested in pursuing this further Time Spent With Patient Time with patient: 25 - 35 minutes Subjective Date/time seen: Date of service: 08/03/19 12:52 Interval history: Patient with severe ischemic cardiomyopathy with congestive heart failure refractory to standard medical treatment Follow-up visit Patient essentially unchanged clinically still has significant peripheral edema generalized weakness he indicates his shortness of breath was considerably improved by thoracentesis last week. 5-6 days of IV dobutamine support has really not a garnered any benefit in terms of mobilizing fluid upon review of his chart. Had another very lengthy conversation with the patient has a brother who is in the room almost continuously with variety of questions about treatment options other than hospice which is been proposed and discussed with him this morning. Had a long discussion with them about aggressive hemodynamic support, ventricular assist devices and so on. Obviously this would require inpatient referral [facility] [place] to see if he is a candidate for anything like that. The brother also had a long discussion with me about the status of his coronary artery disease he has had interventions elsewhere in [place] and I believe mostly at [facility] but no recent coronary interventions. He is not a gentleman that I would consider to be stable or appropriate for follow-up angiography here at [facility]. Exam Const: General: uncomfortable HENMT: Mouth: Yes dry mucous membranes Eyes: Sclera: sclerae normal Pupils: Equal, round and reactive pupils present Neck: Neck: no JVD (About 2 cm of jugular venous distention is noted above the angle of Dickson.) Resp: Effort & Inspection: normal respiratory effort Other: With dullness at the bases otherwise largely clear breath sounds Cardio: Rate: regular rate Rhythm: regular rhythm Other: PMI laterally displaced to the anterior axillary line GI: Auscultation: normal bowel sounds Skin: General skin exam: normal color Extrem: General: normal to inspection Objective Data Vital Signs Vital Signs: Vital Signs - 24 hr 08/02/19 13:21 08/02/19 13:23 08/02/19 14:00 Temperature 36.6 C Pulse Rate 94 95 101 H Respiratory Rate 20 Blood Pressure 94/54 L Pulse Oximetry 95 08/02/19 16:00 08/02/19 18:00 08/02/19 20:00 Temperature 36.4 C L 36.2 C L Pulse Rate 100 98 103 H Respiratory Rate 15 22 H Blood Pressure 87/51 L 94/55 L Pulse Oximetry 99 98 08/02/19 22:00 08/02/19 22:11 08/02/19 22:24 Temperature Pulse Rate 99 92 94 Respiratory Rate 18 18 Blood Pressure Pulse Oximetry 08/02/19 23:27 08/03/19 00:00 08/03/19 02:00 Temperature 36.6 C Pulse Rate 103 H 100 96 Respiratory Rate 22 H Blood Pressure 91/56 L Pulse Oximetry 92 08/03/19 04:00 08/03/19 06:00 08/03/19 08:00 Temperature 36.6 C 36.6 C Pulse Rate 100 99 97 Respiratory Rate 22 H 22 H Blood Pressure 97/64 L 104/69 Pulse Oximetry 97 97 08/03/19 09:33 08/03/19 09:42 Temperature Pulse Rate 99 97 Respiratory Rate 18 18 Blood Pressure Pulse Oximetry 97 Intake/Output Intake/Output: Intake & Output 07/31/19 08/01/19 08/02/19 08/03/19 23:59 23:59 23:59 23:59 Intake Total 1540 1680 2320 650 Output Total 2250 150 1175 300 Balance -710 1530 1145 350 Meds/Results Medications: Active Medications Generic Name Dose Route Start Last Admin Trade Name Freq PRN Reason
--- NOTE | 2019-08-03 13:05 | PC.NURSE ---
Patient up to side of bed with brother's assistance. No staff in room at time of reposition. RN to bedside noticed urine under bed. Hunt lock disengaged. Brother admitted no urine under bed prior to reposition. Brother informed prior to reposition with staff at bedside only.
[2019-08-03 13:42] LABS: Glucose Point of Care 107 (65-105)
--- NOTE | 2019-08-03 14:45 | PC.NURSE ---
Patient request to sit on side of bed. Reviewed safety concern with that practice. Patient states in 7 months his has not fallen. RN suggested to sit in chair. Patient agreed. RN returned to find patient sitting at bedside with brother's assistance
--- NOTE | 2019-08-03 17:49 | PM.IMPN ---
Progress Note: A&P Assessment and Plan (1) CHF (congestive heart failure): Qualifiers: Heart failure chronicity: acute on chronic Heart failure type: systolic Qualified Code(s): I50.23 - Acute on chronic systolic (congestive) heart failure Code(s): I50.9 - Heart failure, unspecified Status: Acute Assessment and Plan: Current echo with EF 20-25%, abnormal diastolic function, basal inferior wall, mid inferior wall, and basal inferoseptal are akinetic, apex, anterior wall, anterolateral wall, anteroseptal wall, inferolateral wall, and mid inferoseptal are hypokinetic, moderate to severe mitral valve regurgitation, moderate pulmonary hypertension and moderate to severe tricuspid valve regurgitation. Venous Dopplers negative for DVT. IV dobutamine stopped. Cardiology folowing and appreciate input. Continue IV Lasix and oral spironolactone. Not making much progress and soft BP makes it difficult to advance treatment. Entresto started. Monitor closely. Long discussion with patient and brother. All questions were answered. Patient remains a full code. No clear end point since he would not tolerate more aggressive therapies. (2) Hypokalemia: Code(s): E87.6 - Hypokalemia Status: Acute Assessment and Plan: Potassium 3.8 today. Will continue scheduled replacement. Monitor levels closely with the addition of Entresto. Adjust replacement as needed. (3) Pleural effusion: Code(s): J90 - Pleural effusion, not elsewhere classified Status: Acute Assessment and Plan: CTA chest 07/21/19 with moderate to large right and moderate left pleural effusions. Ultrasound-guided thoracentesis completed on 07/26/2019 with removal of 1000 mL clear fluid. PH of pleural fluid is normal. Repeat chest x-ray on 07/28/2019 with stable airspace opacities of the mid and lower lung zones and moderate-sized pleural effusions also stable. Remains on IV Lasix and oral spironolactone as noted above. Will monitor. (4) Sepsis: Qualifiers: Sepsis acute organ dysfunction status: unspecified Sepsis type: sepsis due to unspecified organism Qualified Code(s): A41.9 - Sepsis, unspecified organism Code(s): A41.9 - Sepsis, unspecified organism Status: Resolved Assessment and Plan: Criteria met on admission. Result of pneumonia. Blood cultures final and negative. MRSA nasal culture positive and has completed treatment with Bactroban. Has completed course of IV vancomycin and cefepime. Continue to monitor. (5) Pneumonia: Qualifiers: Laterality: unspecified laterality Lung location: unspecified part of lung Pneumonia type: due to unspecified organism Qualified Code(s): J18.9 - Pneumonia, unspecified organism Code(s): J18.9 - Pneumonia, unspecified organism Status: Resolved Assessment and Plan: CT chest with patchy left-sided pneumonia or edema. Has completed course of IV cefepime and vancomycin. Remains on 2L of oxygen. Afebrile. Continue nebulizer treatments including Pulmicort. Will continue to monitor. Wean O2 as tolerated. (6) Elevated troponin: Code(s): R79.89 - Other specified abnormal findings of blood chemistry Status: Acute Assessment and Plan: Troponin peaked at 0.10. EKG showing borderline ST T wave changes in the lateral leads. Appreciate input from cardiology. Remains on aspirin. Metoprolol stopped. Continue to monitor. (7) UTI (urinary tract infection): Qualifiers: Hematuria presence: without hematuria Urinary tract infection type: site unspecified Qualified Code(s): N39.0 - Urinary tract infection, site not specified Code(s): N39.0 - Urinary tract infection, site not specified Status: Resolved Assessment and Plan: UA not consistent with UTI but urine culture grew VRE. He completed treatment with IV vancomycin although resistant. Most likely
[2019-08-03 18:11] LABS: Glucose Point of Care 87 (65-105)
[2019-08-03 20:40] LABS: Glucose Point of Care 134 (65-105)
[2019-08-03 20:40] LABS: Glucose Point of Care 119 (65-105)
[2019-08-03] MEDS: SACUBITRIL/VALSARTAN 12-13 MG TABLET 1 TAB PO (21:15)
[2019-08-04] VITALS (23 sets, daily range): BP systolic 75–88; BP diastolic 44–54; PULSE 73–102; RESP 18–24; TEMP 36.1–36.9; O2SAT 94–97
[2019-08-04] MEDS: BISACODYL 10 MG SUPPOSITORY RECTAL (00:55)
[2019-08-04] MEDS: IPRATROPIUM BR 0.02% INH SOLN 0.5 MG/2.5 ML VIAL INHALATION ×4 (02:50→20:30)
[2019-08-04] MEDS: FUROSEMIDE INJ 40 MG/4 ML VIAL IV PUSH ×2 (06:36→20:24)
[2019-08-04] MEDS: LEVOTHYROXINE SODIUM 50 MCG TABLET PO (06:36)
[2019-08-04] MEDS: METOCLOPRAMIDE HCL 10 MG TABLET PO ×3 (06:36→17:40)
[2019-08-04 06:40] LABS: Blood Urea Nitrogen 16 mg/dL (9-20); Calcium 7.6 mg/dL (8.4-10.2); Carbon Dioxide 33 mmol/L (22-30); Chloride 92 mmol/L (98-107); Estimated CRCL calculation 111 ml/min; Estimated Glomerular Filt Rate > 60; Glucose 93 mg/dL (75-110); Potassium 3.9 mmol/L (3.4-5.0); Sodium 133 mmol/L (137-145)
[2019-08-04 09:31] LABS: Glucose Point of Care 100 (65-105)
[2019-08-04] MEDS: MAGNESIUM OXIDE 400 MG TABLET PO (10:02)
[2019-08-04] MEDS: SPIRONOLACTONE 25 MG TABLET PO (10:02)
[2019-08-04] MEDS: SACUBITRIL/VALSARTAN 12-13 MG TABLET 1 TAB PO (10:04)
[2019-08-04] MEDS: PANTOPRAZOLE 40 MG TABLET PO (10:04)
[2019-08-04] MEDS: POLYSACCHARIDE IRON COMPLEX 150 MG CAPSULE PO ×2 (10:05→17:40)
[2019-08-04] MEDS: ASPIRIN 81 MG CHEWABLE TABLET PO (10:05)
[2019-08-04] MEDS: BUDESONIDE RESPULE NEB 0.5 MG/2 ML AMP INHALATION ×2 (10:21→20:30)
[2019-08-04 11:48] LABS: Glucose Point of Care 125 (65-105)
[2019-08-04] MEDS: POTASSIUM CHLORIDE 10 MEQ TABLET.ER 20 MEQ PO ×2 (13:05→17:40)
--- NOTE | 2019-08-04 15:40 | PM.PNCARD ---
Progress Note: A&P Assessment and Plan (1) CHF (congestive heart failure): Qualifiers: Heart failure type: systolic Heart failure chronicity: acute on chronic Qualified Code(s): I50.23 - Acute on chronic systolic (congestive) heart failure Code(s): I50.9 - Heart failure, unspecified Status: Acute Assessment and Plan: EF 20-25%. Dobutamine stopped as there was no evidence of hemodynamic improvement with 5-6 days of infusion. Not diuresing. Edema is not improving. In fact by my assessment I believe it is worsening. Metoprolol was stopped in hopes that his blood pressure would improved but this has not been the case. Furosemide held this afternoon due to blood pressure in the 80s. Entresto 12/13 mg given yesterday evening and this morning. Mean arterial pressures in the low 60s to high 50s. Discussed with brother that the Entresto has lowered his blood pressure even further and furosemide was held this afternoon due to hypotension. Will stop Entresto for now. Try to continue diuretics if blood pressure will allow. (2) Acute and chronic respiratory failure: Code(s): J96.20 - Acute and chronic respiratory failure, unspecified whether with hypoxia or hypercapnia Status: Acute Assessment and Plan: Management as per primary team. Supplemental oxygen. (3) Pleural effusion: Code(s): J90 - Pleural effusion, not elsewhere classified Status: Acute Assessment and Plan: Thoracentesis 07/26/2019: 1000 cc from right (4) Pneumonia: Qualifiers: Laterality: unspecified laterality Lung location: unspecified part of lung Pneumonia type: due to unspecified organism Qualified Code(s): J18.9 - Pneumonia, unspecified organism Code(s): J18.9 - Pneumonia, unspecified organism Status: Resolved Assessment and Plan: Antibiotics as per primary team Additional Plan Dr Navas had discussion yesterday regarding end of life care versus very aggressive hemodynamic support which would require referral to the Heart Failure Team at [place]. Did not discuss at the time of our interview as he just wanted to lay back in his bed. Brother had questions regarding how much of his abdominal distention is fluid versus fat versus what is inside his colon. Explained it is likely not fat as his brother is so deconditioned and frail. Abdomen is so firm unable to assess for any ascites fluid. No ascites was mentioned on his abdominal x-ray. Plan discussed Dr. Navas 1600 08/04/2019 Subjective Date/time seen: 08/04/19 15:40 Interval history: Follow-up for: Acute on chronic systolic heart failure with severe systolic dysfunction, hypotension, pleural effusion. Date of service: 08/04/2019 Subjective: Sitting on side of bed. Brother at bedside. Tired of being in the hospital and wants to go home. Tired of the food just wants a hot dog and a bag of chips. Denied chest discomfort, shortness of breath or lightheadedness. Hurts all over. Review of Systems Constitutional: Constitutional: Reports fatigue and Reports weakness Eyes: Eyes: Denies blurry vision ENT: Reports Normal hearing present Cardiovascular: Cardiovascular: Denies chest pain, Reports pedal edema (Not improving), Reports leg edema (Not improving) and Denies dyspnea on exertion Respiratory: Respiratory: Denies cough, Denies dyspnea on exertion and Denies wheezing Gastrointestinal: Gastrointestinal: Reports bloating, Reports constipation, Denies nausea and Denies vomiting Genitourinary: Genitourinary: Denies hematuria Musculoskeletal: Musculoskeletal: Reports arthralgias Integumentary/Breasts: Skin/Breast: Denies wounds Neurologic: Reports Normal hearing present and Reports weakness Psychiatric: Psychiatric: Denies anxiety Endocrine: Endocrine: Reports fatigue Hematologic/Lym
[2019-08-04 17:30] LABS: Glucose Point of Care 128 (65-105)
[2019-08-04 20:49] LABS: Glucose Point of Care 132 (65-105)
--- NOTE | 2019-08-04 21:51 | PM.IMPN ---
Progress Note: A&P Assessment and Plan (1) CHF (congestive heart failure): Qualifiers: Heart failure type: systolic Heart failure chronicity: acute on chronic Qualified Code(s): I50.23 - Acute on chronic systolic (congestive) heart failure Code(s): I50.9 - Heart failure, unspecified Status: Acute Assessment and Plan: Current echo with EF 20-25%, abnormal diastolic function, basal inferior wall, mid inferior wall, and basal inferoseptal are akinetic, apex, anterior wall, anterolateral wall, anteroseptal wall, inferolateral wall, and mid inferoseptal are hypokinetic, moderate to severe mitral valve regurgitation, moderate pulmonary hypertension and moderate to severe tricuspid valve regurgitation. Venous Dopplers negative for DVT. IV dobutamine stopped. Cardiology folowing and appreciate input. BP dropped today so Lasix and Entresto held. Entresto stopped now. Continue IV Lasix and oral spironolactone as BP toelrates. Another long discussion with patient and brother. All questions were answered. Brother wants to know if transfer to [place] is a potential options. Will discuss with Cardiology. Will add midodrine to try to help prop up his BP. Add Porfirio hose. (2) Ileus: Onset Date: 05/25/19 Code(s): K56.7 - Ileus, unspecified Status: Acute Assessment and Plan: Severe gaseous distaention of the colon noted yesterday by KUB. Suppository ordered with good results. Exam is improved. Currently on Reglan which is a home med. Continue to monitor. (3) Pleural effusion: Code(s): J90 - Pleural effusion, not elsewhere classified Status: Acute Assessment and Plan: CTA chest 07/21/19 with moderate to large right and moderate left pleural effusions. Ultrasound-guided thoracentesis completed on 07/26/2019 with removal of 1000 mL clear fluid. PH of pleural fluid is normal. KUB yesterday showing small pleural effusions. Remains on IV Lasix and oral spironolactone as noted above. Will monitor. (4) Sepsis: Qualifiers: Sepsis type: sepsis due to unspecified organism Sepsis acute organ dysfunction status: unspecified Qualified Code(s): A41.9 - Sepsis, unspecified organism Code(s): A41.9 - Sepsis, unspecified organism Status: Resolved Assessment and Plan: Criteria met on admission. Result of pneumonia. Blood cultures final and negative. MRSA nasal culture positive and has completed treatment with Bactroban. Has completed course of IV vancomycin and cefepime. Continue to monitor. (5) Hypokalemia: Code(s): E87.6 - Hypokalemia Status: Acute Assessment and Plan: Potassium 3.8 today. Will continue scheduled replacement. (6) Pneumonia: Qualifiers: Laterality: unspecified laterality Lung location: unspecified part of lung Pneumonia type: due to unspecified organism Qualified Code(s): J18.9 - Pneumonia, unspecified organism Code(s): J18.9 - Pneumonia, unspecified organism Status: Resolved Assessment and Plan: CT chest with patchy left-sided pneumonia or edema. Has completed course of IV cefepime and vancomycin. Remains on 2L of oxygen. Afebrile. Continue nebulizer treatments including Pulmicort. Will continue to monitor. Wean O2 as tolerated. (7) Elevated troponin: Code(s): R79.89 - Other specified abnormal findings of blood chemistry Status: Acute Assessment and Plan: Troponin peaked at 0.10. EKG showing borderline ST-T wave changes in the lateral leads. Appreciate input from cardiology. Remains on aspirin. Metoprolol stopped. Continue to monitor. 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
[2019-08-05] VITALS (23 sets, daily range): BP systolic 84–120; BP diastolic 50–61; PULSE 89–130; RESP 18–22; TEMP 36.5–36.9; O2SAT 94–98
--- NOTE | 2019-08-05 00:27 | PC.NURSE ---
I was sitting at my computer at the nurse's station when I noticed the monitoring analyst alarming for room 213 saying V tach. I immediately went to check on the patient and his brother was getting him back into bed. The patient's brother has been told numerous times, including by me, that the patient is not to sit on the side of the bed because he has an air mattress that could allow him to easily slide off and fall on the floor. I had the bed alarm on but I guess the patient's brother turned it off since I didn't physically see him turn it off but I know it was on and it never went off. I explained thoroughly that I did not have an issue getting the patient out of bed as long as we did it safely. The physical therapists have evaluated this patient and determined he needs to be transferred with a [employer] lift. I explained this again to the patient and his brother and I explained that it takes two employees to operate it which sometimes can take a little bit of time trying to find someone else to help out. The patient's brother continued to get angry and he was stepping closer to me and shaking his finger in my face and I told him that if he continues to be disrespectful and not listen to what I am saying about keeping the patient safe then I was going to ask him to leave. He stopped talking so I went back to the desk to see that the patient had a total of 33 beats of V tach during the previous described alarm. As I was trying to look this over, the patient's brother came out to the desk and proceeded to try to talk to me again about the situation. I re-explained everything one more time and he was still unhappy at this point so I then called Kasi Hamilton, charge master coordinator. Kasi came and talked to this man and he was still unhappy and unsatisfied so he said he would just leave for the night and be back in the morning. I will continue to treat this patient as ordered per the physicians and physical therapists unless ordered otherwise.
[2019-08-05] MEDS: IPRATROPIUM BR 0.02% INH SOLN 0.5 MG/2.5 ML VIAL INHALATION ×4 (02:05→20:44)
[2019-08-05] MEDS: FUROSEMIDE INJ 40 MG/4 ML VIAL IV PUSH (06:34)
[2019-08-05] MEDS: METOCLOPRAMIDE HCL 10 MG TABLET PO ×2 (06:34→18:52)
[2019-08-05] MEDS: LEVOTHYROXINE SODIUM 50 MCG TABLET PO (06:34)
[2019-08-05 07:30] LABS: Hematocrit 31.5 % (42.0-52.0); Hemoglobin 9.9 g/dL (14.0-18.0); Mean Corpuscular HGB Conc 31.4 g/dl (32-36); Mean Corpuscular Hemoglobin 31.4 pg (26-34); Mean Platelet Volume 9.4 fl (7.4-10.4); Platelet Count Result 299 k/mm3 (150-375); Red Blood Count 3.15 M/mm3 (4.6-6.20); Red Cell Distribution Width 16.2 % (11.5-14.5); White Blood Count 12.7 K/mm3 (4.5-10.0)
[2019-08-05 07:41] LABS: Albumin Level 2.5 g/dL (3.5-5.1); Blood Urea Nitrogen 17 mg/dL (9-20); Calcium 7.8 mg/dL (8.4-10.2); Carbon Dioxide 34 mmol/L (22-30); Chloride 95 mmol/L (98-107); Estimated CRCL calculation 111 ml/min; Estimated Glomerular Filt Rate > 60; Glucose 90 mg/dL (75-110); Magnesium 1.8 mg/dL (1.6-2.3); Phosphorus 3.6 mg/dL (2.5-4.5); Potassium 3.5 mmol/L (3.4-5.0); Sodium 133 mmol/L (137-145)
[2019-08-05] MEDS: MAGNESIUM OXIDE 400 MG TABLET PO (09:49)
[2019-08-05] MEDS: ASPIRIN 81 MG CHEWABLE TABLET PO (09:49)
[2019-08-05] MEDS: POTASSIUM CHLORIDE 10 MEQ TABLET.ER 20 MEQ PO ×2 (09:49→18:53)
[2019-08-05] MEDS: MIDODRINE HCL 10 MG TABLET 5 MG PO ×2 (09:50→18:53)
[2019-08-05] MEDS: SPIRONOLACTONE 25 MG TABLET PO (09:51)
[2019-08-05] MEDS: PANTOPRAZOLE 40 MG TABLET PO (09:51)
[2019-08-05] MEDS: POLYSACCHARIDE IRON COMPLEX 150 MG CAPSULE PO ×2 (09:52→18:53)
[2019-08-05] MEDS: BUDESONIDE RESPULE NEB 0.5 MG/2 ML AMP INHALATION ×2 (10:37→20:45)
[2019-08-05 12:51] LABS: Glucose Point of Care 102 (65-105)
--- NOTE | 2019-08-05 14:48 | PCDIET ---
Nutrition Follow-Up Complete: Nutrition Diagnosis: Inadequate oral intake related to chewing difficulty as evidenced by patient statement and average meal intake of 48%. Nutrition Goal: Patient will consume greater than 75% of all meals. Goal not met. Patient with average intake of 65% of meals since 08/05/19. Recommend adding low sodium diet to diabetic restriction. Would also allow Glucerna as desired when intakes are poor. Last recorded weight is 104.3 kg which is decreased, likely in part related to diuresis. Bowel Motility: Last documented bowel movement 08/03/19. Labs Reviewed: Na (133), Alb (2.5), Alesha Ca (9.0) Meds Noted: Dulcolax, Lasix, Novolog, Mag-Ox, Reglan, KCl, Midodrine, Protonix, Nifirex-150, Aldactone Additional Notes: Buttocks reddened, but no open sores documented. Will continue to monitor with same goal. Nutrition Monitoring and Evaluation: Follow up in 5 days.
--- NOTE | 2019-08-05 16:33 | PM.IMPN ---
Progress Note: A&P Assessment and Plan (1) CHF (congestive heart failure): Qualifiers: Heart failure chronicity: acute on chronic Heart failure type: systolic Qualified Code(s): I50.23 - Acute on chronic systolic (congestive) heart failure Code(s): I50.9 - Heart failure, unspecified Status: Acute Assessment and Plan: Current echo with EF 20-25%, abnormal diastolic function and significnat wall motion abnormalities. Also with moderate to severe MR, moderate pulmonary hypertension and moderate to severe TR. Venous Dopplers negative for DVT. IV dobutamine stopped. Cardiology following and appreciate input. BP dropped and Entresto stopped now. Midodrine added. Currently on IV Lasix and oral spironolactone as BP toelrates. Spironolactone dose decreased. Discussed with Cardiology. [facility] and this is being arranges by Cardiology. (2) Ileus: Onset Date: 05/25/19 Code(s): K56.7 - Ileus, unspecified Status: Acute Assessment and Plan: Severe gaseous distaention of the colon noted yesterday by KUB. Suppository ordered with good results. Exam today still showing some distention. Currently on Reglan which is a home med. Continue to monitor. Continue suppositories (3) Pleural effusion: Code(s): J90 - Pleural effusion, not elsewhere classified Status: Acute Assessment and Plan: CTA chest 07/21/19 with moderate to large right and moderate left pleural effusions. Ultrasound-guided thoracentesis completed on 07/26/2019 with removal of 1000 mL clear fluid. PH of pleural fluid is normal. Appears transudate felt related to the CHF. KUB on 08/03/19 showing small pleural effusions. Remains on IV Lasix and oral spironolactone as noted above. Will monitor. (4) Sepsis: Qualifiers: Sepsis acute organ dysfunction status: unspecified Sepsis type: sepsis due to unspecified organism Qualified Code(s): A41.9 - Sepsis, unspecified organism Code(s): A41.9 - Sepsis, unspecified organism Status: Resolved Assessment and Plan: Criteria met on admission. Result of pneumonia. Blood cultures final and negative. MRSA nasal culture positive and has completed treatment with Bactroban. Has completed course of IV vancomycin and cefepime. Continue to monitor. (5) Hypokalemia: Code(s): E87.6 - Hypokalemia Status: Acute Assessment and Plan: Potassium 3.9 today. Will continue scheduled replacement. (6) Pneumonia: Qualifiers: Laterality: unspecified laterality Lung location: unspecified part of lung Pneumonia type: due to unspecified organism Qualified Code(s): J18.9 - Pneumonia, unspecified organism Code(s): J18.9 - Pneumonia, unspecified organism Status: Resolved Assessment and Plan: CT chest with patchy left-sided pneumonia or edema. Has completed course of IV cefepime and vancomycin. Remains on 2L of oxygen. Afebrile. Continue nebulizer treatments including Pulmicort. Will continue to monitor. Wean O2 as tolerated. (7) Elevated troponin: Code(s): R79.89 - Other specified abnormal findings of blood chemistry Status: Acute Assessment and Plan: Troponin peaked at 0.10. EKG showing borderline ST-T wave changes in the lateral leads. Suspect Type II LA realted to CHF. Appreciate input from cardiology. Remains on aspirin. Metoprolol stopped. Continue to monitor. 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 Glucose reviewed on 08/05/2019 and remains well
--- NOTE | 2019-08-05 16:50 | PM.PNCARD ---
Progress Note: A&P Additional Plan As is stated in my note about 48 hours ago. There is no other medical options we have available to help this gentleman here. Patient has made the decision that he would like to consider consultation at a tertiary care facility to determine if he is a candidate for aggressive hemodynamic support. I will contact the physician's access line at [facility] in determine if they are willing to accept this gentleman transfer for consultation at their institution. 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 Exam Const: General: comfortable Other: Chronically ill-appearing gentleman otherwise in no apparent distress currently HENMT: Mouth: Yes dry mucous membranes Eyes: Sclera: sclerae normal Pupils: Equal, round and reactive pupils present Neck: Neck: supple and no JVD Thyroid: thyroid normal Resp: Effort & Inspection: normal respiratory effort Other: Dullness at the bases otherwise relatively clear breath sounds Cardio: Rate: regular rate Rhythm: regular rhythm GI: Inspection: distended Skin: General skin exam: normal color Neuro: Cognition (Neuro): normal cognition Extrem: Other: Continues to have relatively severe diffuse bipedal edema up to the midthigh Objective Data Vital Signs Vital Signs: Vital Signs - 24 hr 08/04/19 18:00 08/04/19 18:36 08/04/19 20:00 Temperature 36.1 C L 36.9 C Pulse Rate 101 H 89 90 Respiratory Rate 21 H 20 Blood Pressure 88/51 L 75/44 L Pulse Oximetry 94 94 08/04/19 20:30 08/04/19 20:41 08/04/19 22:00 Temperature Pulse Rate 80 80 99 Respiratory Rate 18 18 Blood Pressure Pulse Oximetry 97 08/05/19 00:00 08/05/19 00:14 08/05/19 02:00 Temperature 36.7 C Pulse Rate 96 130 H 97 Respiratory Rate 20 Blood Pressure 84/59 L Pulse Oximetry 94 08/05/19 02:05 08/05/19 02:15 08/05/19 04:00 Temperature 36.8 C Pulse Rate 93 94 97 Respiratory Rate 18 18 20 Blood Pressure 90/56 L Pulse Oximetry 98 08/05/19 06:00 08/05/19 08:00 08/05/19 10:00 Temperature 36.6 C Pulse Rate 98 106 H 92 Respiratory Rate 20 Blood Pressure 93/60 L Pulse Oximetry 95 08/05/19 10:39 08/05/19 11:02 08/05/19 12:00 Temperature 36.7 C Pulse Rate 100 93 103 H Respiratory Rate 20 20 18 Blood Pressure 120/59 L Pulse Oximetry 94 96 08/05/19 14:00 08/05/19 14:39 08/05/19 14:50 Temperature Pulse Rate 92 93 91 Respiratory Rate 20 18 Blood Pressure Pulse Oximetry Intake/Output Intake/Output: Intake & Output 08/02/19 08/03/19 08/04/19 08/05/19 23:59 23:59 23:59 23:59 Intake Total 2320 5761 933 7160 Output Total 1175 1225 1050 700 Balance 1145 370 -450 380 Meds/Results Medications: Active Medications Generic Name Dose Route Start Last Admin Trade Name Freq PRN Reason Stop Dose Admin Hydrocodone Bitart/Acetaminophen 1 tab 08/01/19 10:55 08/05/19 09:47 [place] 5-325 Mg PO 1 tab Q4H PRN Administration Pain Rated 4-6 Aspirin 81 mg 07/22/19 08:00 08/05/19 09:49 Aspirin Chewable PO 81 mg DAILY@0800 [facility] Administration Bisacodyl 10 mg 08/05/19 09:00 08/05/19 09:49 Dulcolax Suppository RECTAL 08/07/19 09:01 Not Given QAM [facility] Budesonide 0.5 mg 07/22/19 08:00 08/05/19 10:37 Pulmicort Respule Neb INHALATION 0.5 mg Q12HRT ROHIT Administration Dextrose 12.5 gm 07/21/19 22:00 Dextrose 50% Syringe IV PUSH PRN PRN Hypoglycemia Protocol Furosemide 40 mg 07/27/19
[2019-08-05 18:42] LABS: Glucose Point of Care 93 (65-105)
[2019-08-05 21:04] LABS: Glucose Point of Care 100 (65-105)
[2019-08-06] VITALS: PULSE 94
[2019-08-06 01:46] VITALS: PULSE 95; RESP 18
[2019-08-06] MEDS: IPRATROPIUM BR 0.02% INH SOLN 0.5 MG/2.5 ML VIAL INHALATION (01:46)
[2019-08-06 01:51] VITALS: PULSE 93; RESP 18
[2019-08-06 04:00] VITALS: BP 90/55; PULSE 92; PULSE 96; RESP 20; TEMP 36.7; O2SAT 95
[2019-08-06] MEDS: LEVOTHYROXINE SODIUM 50 MCG TABLET PO (06:35)
[2019-08-06] MEDS: METOCLOPRAMIDE HCL 10 MG TABLET PO (06:35)
--- NOTE | 2019-08-06 18:00 | PM.TDS ---
Transfer Discharge Sum: Prov Provider Date of admission: 07/21/19 13:29 Primary care physician: UNKNOWN,DOCTOR Admitting clinician: Syed Aggarwal MD Consults: 07/22/19 08:26 Consult to Physician Routine Comment: called [facility] and notified Consulting Provider: Jadon Navas call center analyst/MD group to consult: heart care group Reason for consultation: chf exacerbation Has provider been notified: Yes 07/30/19 Care Coordination Consult Routine Comment: Reason for Consult:: Hospice Referral 07/31/19 Consult to Spiritual Care Services Routine Comment: DS: Diagnosis Admitting Diagnosis Admitting Diagnosis: Acute on chronic diastolic (congestive) heart failure Discharge Diagnosis (1) CHF (congestive heart failure): Qualifiers: Heart failure type: systolic Heart failure chronicity: acute on chronic Qualified Code(s): I50.23 - Acute on chronic systolic (congestive) heart failure Code(s): I50.9 - Heart failure, unspecified Status: Acute Assessment and Plan: Current echo with EF 20-25%, abnormal diastolic function and significnat wall motion abnormalities. Also with moderate to severe MR, moderate pulmonary hypertension and moderate to severe TR. Venous Dopplers negative for DVT. IV dobutamine stopped. Cardiology following and appreciate input. BP dropped and Entresto stopped. Midodrine added. Currently on IV Lasix and oral spironolactone as BP toelrates. Spironolactone dose decreased. Discussed with Cardiology. The [facility] is requesting transfer to the [place] [facility] and this was being arranged by Cardiology. (2) Ileus: Onset Date: 05/25/19 Code(s): K56.7 - Ileus, unspecified Status: Acute Assessment and Plan: Severe gaseous distaention of the colon noted by KUB. Suppository ordered with good results. Exam still showing some distention. Currently on Reglan which is a home med. Continue to monitor. Continue suppositories (3) Pleural effusion: Code(s): J90 - Pleural effusion, not elsewhere classified Status: Acute Assessment and Plan: CTA chest 07/21/19 with moderate to large right and moderate left pleural effusions. Ultrasound-guided thoracentesis completed on 07/26/2019 with removal of 1000 mL clear fluid. PH of pleural fluid is normal. Appears transudate felt related to the CHF. KUB on 08/03/19 showing small pleural effusions. Remains on IV Lasix and oral spironolactone as noted above. (4) Sepsis: Qualifiers: Sepsis type: sepsis due to unspecified organism Sepsis acute organ dysfunction status: unspecified Qualified Code(s): A41.9 - Sepsis, unspecified organism Code(s): A41.9 - Sepsis, unspecified organism Status: Resolved Assessment and Plan: Criteria met on admission. Result of pneumonia. Blood cultures final and negative. MRSA nasal culture positive and has completed treatment with Bactroban. Has completed course of IV vancomycin and cefepime. Continue to monitor. (5) Hypokalemia: Code(s): E87.6 - Hypokalemia Status: Acute Assessment and Plan: Potassium 3.9 today. Will continue scheduled replacement. (6) Pneumonia: Qualifiers: Laterality: unspecified laterality Lung location: unspecified part of lung Pneumonia type: due to unspecified organism Qualified Code(s): J18.9 - Pneumonia, unspecified organism Code(s): J18.9 - Pneumonia, unspecified organism Status: Resolved Assessment and Plan: CT chest with patchy left-sided pneumonia or edema. Has completed course of IV cefepime and vancomycin. Remains on 2L of oxygen. Afebrile. Continue nebulizer treatments including Pulmicort. Will continue to monitor. Wean O2 as tolerated. (7) Elevated troponin: Code(s): R79.89 - Other specified abnormal findings of blood chemistry Status: Acute Assessment and Plan: Troponin peaked
--- NOTE | 2019-09-13 09:23 | PC.NURSE ---
AFB is negative. Dr. Gerry oliveros.
== END 2019-08-06 07:40 | disposition short-term general hospital (02) | DRG 871 ==
LOC: ANHED 14:38 → ANHIMU 15:53 → ANHICU 07-22 17:04 → ANHIMU 07-24 14:14
PROVIDERS: Hospitalist; Internal Medicine Cardiovascular Disease; Internal Medicine Critical Care Medicine; Physician Assistant; Admitting Provider Internal Medicine; Emergency Provider Emergency Medicine; Visit Provider Internal Medicine
DX: A41.9 Sepsis, unspecified organism (principal); I50.33 Acute on chronic diastolic (congestive) heart failure; J18.9 Pneumonia, unspecified organism; J96.20 Acute and chronic respiratory failure, unspecified whether with hypoxia or hypercapnia; J90 Pleural effusion, not elsewhere classified; K56.7 Ileus, unspecified; I25.10 Atherosclerotic heart disease of native coronary artery without angina pectoris; I25.5 Ischemic cardiomyopathy; I11.0 Hypertensive heart disease with heart failure; E78.5 Hyperlipidemia, unspecified; J44.9 Chronic obstructive pulmonary disease, unspecified; E11.9 Type 2 diabetes mellitus without complications; Z86.718 Personal history of other venous thrombosis and embolism; Z74.01 Bed confinement status; F41.8 Other specified anxiety disorders; E03.9 Hypothyroidism, unspecified; K21.9 Gastro-esophageal reflux disease without esophagitis; Z99.81 Dependence on supplemental oxygen; Z95.1 Presence of aortocoronary bypass graft; M54.9 Dorsalgia, unspecified; G89.29 Other chronic pain; I25.2 Old myocardial infarction; Z87.891 Personal history of nicotine dependence; D64.9 Anemia, unspecified; Z22.322 Carrier or suspected carrier of Methicillin resistant Staphylococcus aureus; I34.0 Nonrheumatic mitral (valve) insufficiency; I27.20 Pulmonary hypertension, unspecified; E87.6 Hypokalemia
CPT/HCPCS: 32555; 36415; 36600; 71046; 71275; 74019; 80048; 80053; 80069; 80076; 80202; 82040; 82042; 82150; 82247; 82375; 82805; 82945; 82947; 83050; 83605; 83615; 83735; 83880; 83986; 84100; 84155; 84157; 84439; 84443; 84480; 84484; 85025; 85027; 85380; 85610; 85730; 87015; 87040; 87070; 87075; 87077; 87081; 87086; 87088; 87102; 87116; 87186; 87205; 87206; 88104; 88108; 88305; 88321; 89051; 93005; 93306; 93970; 94640; 96365; 96367; 96375; 99285; A9270; J0131; J0456; J0692; J0696; J1250; J1815; J1940; J2930; J3370; J3475; J3480; P9047; Q9967